=== PATIENT | male | born 1930 | race Caucasian/White ===

== ENCOUNTER 2018-01-11 19:30 | Inpatient (IN) | payer MEDICARE ==
[~2018-01-11] VITALS: Ht 172.7 cm; Wt 72.6 kg
--- NOTE | 2018-01-11 19:42 | Emergency Room Report ---
History of Present Illness General Chief Complaint: Generalized Weakness Source: Family Member Present Illness HPI 87-year-old male with a history of CAD status post CABG, PPM placement 20 years ago, presents with very short lived MS, chest pressure today, with associated generalized weakness x 1 week and a fall 6 days ago. He reports he stumbled on a step and hit his head but didn't think much of it so never came to the ER then. His chest pain today resolved without intervention, he denies having SOB , F/C, cough, syncope, LOC, N/V, diarrhea, or any other complaints. Allergies: Coded Allergies: No Known Allergies (Unverified , 01/11/18) Patient History Past Medical History: see triage record Reviewed Nursing Documentation: PMH: Agreed; PSxH: Agreed Nursing Documentation-PMH Past Medical History: No History, Except For Hx Cardiac Problems: Yes - Bypass Surgery Hx Pacemaker: Yes Review of Systems All Other Systems: negative except mentioned in HPI Physical Exam Vital Signs Date Time Temp Pulse Resp B/P (MAP) Pulse Ox O2 Delivery O2 Flow Rate FiO2 01/11/18 19:21 98.0 60 18 161/80 97 Room Air 98.1 Sp02 EP Interpretation: reviewed, normal General Appearance: no apparent distress, alert, non-toxic Head: normocephalic, other - small contusion to L of vertex Eyes: bilateral eye normal inspection, bilateral eye PERRL, bilateral eye EOMI ENT: normal ENT inspection, hearing grossly normal, normal pharynx, no angioedema, normal voice, moist mucus membranes Neck: normal inspection, full range of motion, supple, no bony tend, supple/ symm/no masses Respiratory: chest non-tender, lungs clear, normal breath sounds, chest symmetrical, palpation of chest normal Cardiovascular #1: normal peripheral pulses, regular rate, rhythm, other - PPM site C/D/I, edema - 2+ B/L LE edema Cardiovascular #2: 2+ radial (R), 2+ radial (L) Gastrointestinal: normal inspection, non tender, soft, no mass, no guarding, no rebound Rectal: deferred Genitourinary: normal inspection, no CVA tenderness Musculoskeletal: back normal, gait/station normal, normal range of motion, non- tender, no calf tenderness Neurologic: alert, responsive, complaints coordinator III-XII nml as tested, motor strength/tone normal, sensory intact, speech normal Psychiatric: judgement/insight normal, memory normal, mood/affect normal, no suicidal/homicidal ideation Skin: normal color, no rash, warm/dry, normal turgor Lymphatic: no adenopathy Medical Decision Making Diagnostic Impression: Primary Impression: Chest pain Additional Impressions: Pneumonia CHF (congestive heart failure) Intracranial bleed ER Course Patient with short-lived chest pain, but also had a mechanical fall a week ago. Does have B/L LE edema, suspect CHF as part of pathology. Patient's BNP elevated, CXR with R>L infiltrate, small L effusion, c/w pneumonia vs. chf. Patient given lasix and levaquin, admitted. EKG Diagnostic Results EKG Time: 19:35 EP Interpretation: paced rhythm, LBBB morphology Rate: normal Rhythm: NSR ST Segments: no acute changes ASA given to the pt in ED: Yes Rhythm Strip Diag. Results Rhythm Strip Time: 19:43 EP Interpretation: yes Rate: 60 Rhythm: no PVC's, no ectopy, other - paced rhythm Chest X-Ray Diagnostic Results Chest X-Ray Diagnostic Results : Chest X-Ray Ordered: Yes # of Views/Limited/Complete: 1 View Indication: Chest Pain EP Interpretation: Yes Interpretation: no effusion, no pneumothorax, no acute cardiopulmonary disease, other - +RLL and RML consolidation Impression: Other - RLL PNA Electronically Signed by: Gael Abraham MD CT/MRI/US Diagnostic Results CT/MRI/US Diagnostic Results #1: Imaging Test Ordered: ct head noncon Impression possible tiny L putamen hemorrhage 0.3cm, no mass effect CT/MRI/US Diagnostic Results #2: Imaging Test Ordered: ct c-spine noncon Impression nad Last Vital Signs Date Time Temp Pulse Resp B/P (MAP) Pulse Ox O2 Delivery O2 Flow Rate FiO2 01/11/18 19:21 98.0 60 18 161/80 97 Room Air 98.1 Disposition: ADMITTED INPATIENT Condition: Stable Signed Out To: Dr. Hernandez to admit to GAEL Rodriguez M.D Jan 11, 2018 19:42
[2018-01-11 20:07] LABS: ANION GAP 9 mmol/L (5-15); BLOOD UREA NITROGEN 41 mg/dL (7-18); CALCIUM 10.2 MG/DL (8.5-10.1); CARBON DIOXIDE 24 MMOL/L (21-32); CHLORIDE 106 MMOL/L (98-107); CREATININE 2.3 MG/DL (0.55-1.30); POTASSIUM 4.5 MMOL/L (3.5-5.1); SODIUM 139 MMOL/L (136-145)
[2018-01-11 20:11] LABS: BASOPHILS % (AUTO) 1.3 % (0.0-2.0); EOSINOPHILS % (AUTO) 3.5 % (0.0-3.0); HEMATOCRIT 32.6 % (42.0-52.0); HEMOGLOBIN 11.2 G/DL (14.2-18.0); LYMPHOCYTES % (AUTO) 15.6 % (20.0-45.0); MEAN CORPUSCULAR VOLUME 92 FL (80-99); MONOCYTES % (AUTO) 7.7 % (1.0-10.0); PLATELET COUNT 129 K/UL (150-450); RED BLOOD COUNT 3.53 M/UL (4.70-6.10); RED CELL DISTRIBUTION WIDTH 12.9 % (11.6-14.8); WHITE BLOOD COUNT 4.7 K/UL (4.8-10.8)
[2018-01-11] MEDS ORDERED: NIACIN500 M3 PO (20:18)
[2018-01-11] MEDS ORDERED: FISH OIL CAP1000 MG ORAL (20:18)
[2018-01-11] MEDS ORDERED: TRICON CAPSULE1 EACH PO (20:18)
[2018-01-11] MEDS ORDERED: ADALAT20 MG ORAL (20:18)
[2018-01-11] MEDS ORDERED: ULORIC80 MG ORAL (20:18)
[2018-01-11] MEDS ORDERED: OMEPRAZOLE40 M1 ORAL (20:18)
[2018-01-11] MEDS ORDERED: ASPIRIN81 MG ORAL (20:18)
[2018-01-11] MEDS ORDERED: CARVEDILOL25 MG ORAL (20:18)
[2018-01-11] MEDS ORDERED: ACETAMINOPHEN325 M1 ORAL (20:18)
[2018-01-11] MEDS ORDERED: TAMSULOSIN HCL0.4 MG ORAL (20:18)
[2018-01-11 20:21] LABS: ALANINE AMINOTRANSFERASE 19 U/L (12-78); ALBUMIN 3.4 G/DL (3.4-5.0); ALKALINE PHOSPHATASE 31 U/L (46-116); ASPARTATE AMINO TRANSFERASE 15 U/L (15-37); BILIRUBIN,TOTAL 0.4 MG/DL (0.2-1.0); CKMB 1.6 NG/ML (0.0-3.6); CREATINE KINASE 42 U/L (26-308)
[2018-01-11 20:22] LABS: INR 1.4 (0.9-1.1)
[2018-01-11] MEDS ORDERED: Aspirin Baby 81mg ORAL SCH (21:15)
[2018-01-11] MEDS ORDERED: Aspirin Baby 81mg ONE (21:16)
--- NOTE | 2018-01-11 21:17 | Diagnostic Imaging Report ---
EXAM: CT Head Without Intravenous Contrast CLINICAL HISTORY: FALL TECHNIQUE: Axial computed tomography images of the head/brain without intravenous contrast. CTDI is 70 mGy and DLP is 1684mGy-cm. One or more of the following dose reduction techniques were used: automated exposure control, adjustment of the mA and/or kV according to patient size, use of iterative reconstruction technique. COMPARISON: No relevant prior studies available. FINDINGS: Brain: Focal 0.3 cm left lateral putamen mild hyperdensity, image 15, is indeterminate and could represent tiny punctate hemorrhage in the proper clinical setting. Likely age-appropriate cerebral parenchymal volume loss. Scattered minimal white matter nonspecific hypodensities likely representing chronic microvascular ischemia. Ventricles: Unremarkable. No ventriculomegaly. Bones/joints: Unremarkable. No acute fracture. Soft tissues: Unremarkable. Vasculature: Cerebrovascular atherosclerosis. Sinuses: Unremarkable as visualized. No acute sinusitis. Mastoid air cells: Unremarkable as visualized. No mastoid effusion. IMPRESSION: 1. Possible tiny left putamen hemorrhage, no mass effect. Recommend attention on follow-up. 2. Otherwise no acute intracranial pathology. 3. Likely age-appropriate chronic senescent changes.
--- NOTE | 2018-01-11 21:20 | Diagnostic Imaging Report ---
EXAM: XR Chest, 1 View CLINICAL HISTORY: PAIN TECHNIQUE: Frontal view of the chest. COMPARISON: No relevant prior studies available. FINDINGS: Lungs: See below. Pleural space: Bibasilar pleural effusions, small, with passive atelectasis or consolidation. No pneumothorax. Heart: Retrocardiac opacity. Mediastinum: Unremarkable. Bones/joints: Sternotomy. Left chest pacer. Mediastinal operative clips. IMPRESSION: Bilateral pleural effusions with bibasilar atelectasis, correlate to exclude consolidation.
--- NOTE | 2018-01-11 21:32 | Diagnostic Imaging Report ---
EXAM: CT Cervical Spine Without Intravenous Contrast CLINICAL HISTORY: FALL TECHNIQUE: Axial computed tomography images of the cervical spine without intravenous contrast. CTDI is 70.8 mGy and DLP is 1684 mGy-cm. One or more of the following dose reduction techniques were used: automated exposure control, adjustment of the mA and/or kV according to patient size, use of iterative reconstruction technique. COMPARISON: No relevant prior studies available. FINDINGS: Vertebrae: Unremarkable. No acute fracture. Discs/spinal canal/neural foramina: Multilevel degenerative spine findings. Discogenic degeneration, facet arthropathy. No high-grade canal or foraminal osseous stenosis. Soft tissues: Unremarkable. Vasculature: Carotid at least moderate ASVD in the region of the bifurcation. Lung apices: Unremarkable as visualized. IMPRESSION: No acute abnormality.
[2018-01-11 21:47] VITALS: BP 163/70
[2018-01-11] MEDS: Heparin 5000 units/ml inj SUBQ SCH (22:11)
[2018-01-11] MEDS ORDERED: LORazepam Inj 2mg/ml 1ml IV PRN (22:15)
[2018-01-11] MEDS ORDERED: Morphine Sulfate 4mg/ml Inj IVP PRN (22:15)
[2018-01-11] MEDS ORDERED: Nitroglycerin Subl 0.4mg tab SL PRN (22:15)
[2018-01-11] MEDS ORDERED: Albuterol/Ipratropium 3ml neb HHN PRN (22:15)
[2018-01-11] MEDS ORDERED: Miralax 17gm pkt ORAL PRN (22:15)
[2018-01-11] MEDS ORDERED: Promethazine/Codeine 5ml UD ORAL PRN (22:15)
[2018-01-11] MEDS ORDERED: Mylanta II UD 30ml ORAL PRN (22:15)
[2018-01-11 22:29] VITALS: BP 150/77
[2018-01-11] MEDS: Tamsulosin 0.4mg cap ORAL SCH (23:33)
[2018-01-11] MEDS: Carvedilol 25mg Tab ORAL SCH (23:34)
[2018-01-11] MEDS: D5 1/2NS 1,000 ML IV SCH (23:36)
[2018-01-12] VITALS: BP 161/87
[2018-01-12 01:14] LABS: APPEARANCE,URINE CLEAR; BILIRUBIN, URINE NEGATIVE (NEGATIVE); COLOR,URINE PALE YELLOW; GLUCOSE, URINE (UA) NEGATIVE (NEGATIVE); KETONES,URINE NEGATIVE (NEGATIVE); LEUKOCYTE ESTERASE ,URINE NEGATIVE (NEGATIVE); NITRITE,URINE NEGATIVE (NEGATIVE); PH,URINE 7 (4.5-8.0); PROTEIN,URINE NEGATIVE (NEGATIVE); UROBILINOGEN,URINE NORMAL MG/DL (0.0-1.0)
[2018-01-12 04:00] VITALS: BP 140/56
[2018-01-12 08:00] VITALS: BP 154/71
--- NOTE | 2018-01-12 08:09 | Consultation ---
History of Present Illness General Date patient seen: Jan 12, 2018 Time patient seen: 07:45 Chief Complaint: Generalized Weakness Referring physician: dr Hernandez Reason for Consultation: inpatient management Present Illness HPI 87-year-old male with PMH of of CAD, s/p CABG, PPM placement 20 years ago, presented with very short lived chest pressure today with associated generalized weakness x 1 week and mechanical fall 6 days ago. He reported stumbling on a step and hitting his head but denied loss of consciousness or blackout. Chest pain resolved without intervention, He denied fever, chills, cough, syncope, LOC, N/V, diarrhea, leg swelling He does reported this am occasional SOB and generalized weakness patient was taking Lasix in the past but stopped as per script editor Upon evaluation in ED VSS except elevated blood pressure CT head revealed possible tiny left putamen hemorrhage, no mass effect. Recommend attention on follow-up. Otherwise no acute intracranial pathology. troponin negative pro BNP 3689 INR-1,4 ( not on a/coagulation) ECG with paced rhythm CXR with bilateral pleural effusions with bibasilar atelectasis, possible consolidation. CT C spine - no acute fracture mild anemia evidence of renal insufficiency BUN 41 and creatinine 2.3 Patient reported follow up with outpt cardio q 3 months Last pacemaker interrogation 3 months ago Have next appointment this coming Sunday Allergies: Coded Allergies: No Known Allergies (Unverified , 01/11/18) Medication History Scheduled Acetaminophen* (Acetaminophen 325MG Tablet*), Unknown Dose ORAL EVERY 12 HOURS, (Reported) Aspirin* (Aspirin*), 81 MG ORAL DAILY, (Reported) Carvedilol* (Carvedilol*), 25 MG ORAL EVERY 12 HOURS, (Reported) Febuxostat (Uloric), 80 MG ORAL DAILY, (Reported) Fish Oil (Fish Oil 1,000 mg Capsule), Unknown Dose ORAL DAILY, (Reported) Niacin (Niacin), 500 MG PO DAILY, (Reported) Nifedipine (Nifedipine*), 60 MG ORAL DAILY, (Reported) Omeprazole (Omeprazole), 40 MG ORAL DAILY, (Reported) Tamsulosin Hcl (Tamsulosin Hcl*), 0.4 MG ORAL BID, (Reported) Miscellaneous Medications Fe Fumarate/Vit C/B12-If/Fa (Tricon Capsule), 1 EACH PO, (Reported) Patient History History Provided By: Patient, Family Member Healthcare decision maker Resuscitation status Full Code Advanced Directive on File Past Medical/Surgical History Past Medical/Surgical History: (1) Pacemaker (2) CAD (coronary artery disease) of artery bypass graft Review of Systems Constitutional: Reports: weakness Eye: Reports: no symptoms ENT: Reports: no symptoms Respiratory: Reports: see HPI Cardiovascular: Reports: see HPI Gastrointestinal: Reports: no symptoms Musculoskeletal: Reports: muscle stiffness Skin: Reports: no symptoms Psychiatric: Reports: no symptoms Neurological: Reports: see HPI Endocrine: Reports: no symptoms Hematologic/Lymphatic: Reports: no symptoms Physical Exam General Appearance: no apparent distress, alert - responsive Lines, tubes and drains: peripheral HEENT: normocephalic, atraumatic, anicteric, mucous membranes moist Neck: supple Respiratory/Chest: lungs clear, no respiratory distress, no accessory muscle use Cardiovascular/Chest: normal peripheral pulses, normal rate, no JVD, pacemaker/ AICD - Left upper chest pacemaker , other - trace edema BLE Abdomen: normal bowel sounds, non tender, soft Extremities: normal range of motion, non-tender, no calf tenderness, normal capillary refill Skin Exam: warm/dry Neurologic: alert, responsive Musculoskeletal: normal muscle bulk Last 24 Hour Vital Signs Date Time Temp Pulse Resp B/P (MAP) Pulse Ox O2 Delivery O2 Flow Rate FiO2 01/12/18 04:00 97.3 60 21 140/56 95 Room Air 97.3 01/12/18 00:00 97.0 83 22 161/87 96 Room Air 97.0 01/12/18 00:00 64 01/11/18 23:34 64 156/78 01/11/18 22:30 98.1 72 18 150/77 97 Room Air 98.1 01/11/18 22:29 98.1 72 18 150/77 97 Room Air 98.1 01/11/18 21:47 98.1 73 18 163/70 97 Room Air 98.1 01/11/18 19:21 98.0 60 18 161/80 97 Room Air 98.1 Intake and Output 01/11/18 01/12/18 19:00 07:00 Output Total 700 ml Balance -700 ml Output Urine Total 700 ml # Voids 3 Laboratory Tests Test 01/11/18 19:30 01/11/18 23:30 White Blood Count 4.7 K/UL (4.8-10.8) L Red Blood Count 3.53 M/UL (4.70-6.10) L Hemoglobin 11.2 G/DL (14.2-18.0) L Hematocrit 32.6 % (42.0-52.0) L Mean Corpuscular Volume 92 FL (80-99) Mean Corpuscular Hemoglobin 31.8 PG (27.0-31.0) H Mean Corpuscular Hemoglobin Concent 34.5 G/DL (32.0-36.0) Red Cell Distribution Width 12.9 % (11.6-14.8) Platelet Count 129 K/UL (150-450) L Mean Platelet Volume 5.9 FL (6.5-10.1) L Neutrophils (%) (Auto) 72.0 % (45.0-75.0) Lymphocytes (%) (Auto) 15.6 % (20.0-45.0) L Monocytes (%) (Auto) 7.7 % (1.0-10.0) Eosinophils (%) (Auto) 3.5 % (0.0-3.0) H Basophils (%) (Auto) 1.3 % (0.0-2.0) Prothrombin Time 14.7 SEC (9.30-11.50) H Prothromb Time International Ratio 1.4 (0.9-1.1) H Activated Partial Thromboplast Time 25 SEC (23-33) Sodium Level 139 MMOL/L (136-145) Potassium Level 4.5 MMOL/L (3.5-5.1) Chloride Level 106 MMOL/L (98-107) Carbon Dioxide Level 24 MMOL/L (21-32) Anion Gap 9 mmol/L (5-15) Blood Urea Nitrogen 41 mg/dL (7-18) H Creatinine 2.3 MG/DL (0.55-1.30) H Estimat Glomerular Filtration Rate mL/min (>60) Glucose Level 116 MG/DL (74-106) H Calcium Level 10.2 MG/DL (8.5-10.1) H Total Bilirubin 0.4 MG/DL (0.2-1.0) Aspartate Amino Transf (AST/SGOT) 15 U/L (15-37) Alanine Aminotransferase (ALT/SGPT) 19 U/L (12-78) Alkaline Phosphatase 31 U/L (46-116) L Total Creatine Kinase 42 U/L (26-308) Creatine Kinase MB 1.6 NG/ML (0.0-3.6) Creatine Kinase MB Relative Index 3.8 Troponin I 0.015 ng/mL (0.000-0.056) Pro-B-Type Natriuretic Peptide 99833 pg/mL (0-125) H Total Protein 6.9 G/DL (6.4-8.2) Albumin 3.4 G/DL (3.4-5.0) Globulin 3.5 g/dL Albumin/Globulin Ratio 1.0 (1.0-2.7) Urine Color Pale yellow Urine Appearance Clear Urine pH 7 (4.5-8.0) Urine Specific Bryant 1.005 (1.005-1.035) Urine Protein Negative (NEGATIVE) Urine Glucose (UA) Negative (NEGATIVE) Urine Ketones Negative (NEGATIVE) Urine Occult Blood Negative (NEGATIVE) Urine Nitrite Negative (NEGATIVE) Urine Bilirubin Negative (NEGATIVE) Urine Urobilinogen Normal MG/DL (0.0-1.0) Urine Leukocyte Esterase Negative (NEGATIVE) Urine RBC 0-2 /HPF (0 - 0) H Urine WBC 0-2 /HPF (0 - 0) Urine Squamous Epithelial Cells Occasional /LPF Urine Bacteria Occasional /HPF (NONE) Urine Eosinophils None seen Urine Random Sodium 124 mmol/L (20-110) H Urine Potassium Timed 10 mmol/L (12-62) L Height (Feet): 5 Height (Inches): 8.00 Weight (Pounds): 160 Medications Current Medications Medications (Trade) Dose Ordered Sig/Eva Route PRN Reason Start Time Stop Time Status Last Admin Dose Admin Acetaminophen (Tylenol) 650 mg Q4H PRN ORAL fever 01/11/18 22:15 02/10/18 22:14 Al Hydroxide/Mg Hydroxide (Mylanta II) 30 ml Q6H PRN ORAL dyspepsia 01/11/18 22:15 02/10/18 22:14 Albuterol/ Ipratropium (Albuterol/ Ipratropium) 3 ml EVERY 4 HOURS PRN HHN Shortness of Breath 01/11/18 22:15 01/16/18 22:14 Carvedilol (Coreg) 25 mg EVERY 12 HOURS ORAL 01/11/18 22:05 02/10/18 22:04 01/11/18 23:34 Clonidine HCl (Catapres Tab) 0.1 mg Q4H PRN ORAL For High Blood Pressure 01/11/18 22:15 02/10/18 22:14 Dextrose (Dextrose 50%) STAT PRN IV Hypoglycemia 01/11/18 22:15 02/10/18 22:14 Dextrose/Sodium Chloride 1,000 ml @ 50 mls/hr Q20H IV 01/11/18 22:01 02/10/18 22:00 01/11/18 23:36 Heparin Sodium (Porcine) (Heparin 5000 units/ml) 5,000 units EVERY 12 HOURS SUBQ 01/11/18 22:11 02/10/18 22:10 Lorazepam (Ativan 2mg/ml 1ml) 0.5 mg Q4H PRN IV For Anxiety 01/11/18 22:15 01/18/18 22:14 Morphine Sulfate (Morphine Sulfate) 1 mg Q4H PRN IVP For Pain 7-01/11/18 22:15 01/18/18 22:14 Nitroglycerin (Ntg) 0.4 mg Q5M X 3 DOSES PRN SL Prn Chest Pain 01/11/18 22:15 02/10/18 22:14 Ondansetron HCl (Zofran) 4 mg Q6H PRN IVP Nausea & Vomiting 01/11/18 22:15 02/10/18 22:14 Polyethylene Glycol (Miralax) 17 gm HSPRN PRN ORAL Constipation 01/11/18 22:15 02/10/18 22:14 Promethazine HCl/ Codeine (Phenergan with Codeine) 5 ml Q4H PRN ORAL For Cough 01/11/18 22:15 02/10/18 22:14 Tamsulosin HCl (Flomax) 0.4 mg BID ORAL 01/11/18 22:05 02/10/18 22:04 01/11/18 23:33 Temazepam (Restoril) 15 mg HSPRN PRN ORAL Insomnia 01/11/18 22:15 01/18/18 22:14 Assessment/Plan Assessment/Plan ASSESSMENT Status post mechanical fall Chest pain, rule out acute coronary syndrome Congestive heart failure with elevated pro BNP; probable exacerbation Possible pneumonia Coagulopathy Acute kidney injury versus chronic renal insufficiency Possible dehydration Possible tiny intracranial hemorrhage Pacemaker PLAN OF CARE telemetry floor Serial troponin, EKG to rule out acute SD ECHO cardiology eval pacemaker interrogation- per cardio discretion ; last done 3 months ago ( follows with cardio as outpt at [facility]) hold aspirin and fish oil for now, continue BB, check lipid panel, TSH Sputum culture , empiric antibiotic for now, low suspicion for PNA though, likely CHF repeat CXR in am O2 HHN prn Venous Duplex BLE hold Lasix for now until ECHO results neuro eval repeat CT head on Sunday neuro checks ammonia level carotid Duplex orthostatic VS x 24 hrs gentle IV fluids monitor renal parameters lytes, correct ytes as needed , avoid nephrotoxic Renal ultrasound trend INR fall precautions PT/OT /ST supportive care case discussed and evaluated by supervising physician Priscilla Montoya NP Jan 12, 2018 08:09
[2018-01-12] MEDS: Heparin 5000 units/ml inj SUBQ SCH ×2 (09:00→21:00)
[2018-01-12 09:22] LABS: EOSINOPHILS % (AUTO) 5.2 % (0.0-3.0); HEMATOCRIT 35.8 % (42.0-52.0); HEMOGLOBIN 12.2 G/DL (14.2-18.0); LYMPHOCYTES % (AUTO) 10.9 % (20.0-45.0); MEAN CORPUSCULAR VOLUME 93 FL (80-99); MONOCYTES % (AUTO) 6.8 % (1.0-10.0); NEUTROPHILS % (AUTO) 76.1 % (45.0-75.0); PLATELET COUNT 142 K/UL (150-450); RED BLOOD COUNT 3.84 M/UL (4.70-6.10); RED CELL DISTRIBUTION WIDTH 12.8 % (11.6-14.8); WHITE BLOOD COUNT 4.9 K/UL (4.8-10.8)
[2018-01-12] MEDS: Tamsulosin 0.4mg cap ORAL SCH ×2 (09:27→18:50)
[2018-01-12] MEDS: Carvedilol 25mg Tab ORAL SCH ×2 (09:27→21:03)
[2018-01-12 09:34] LABS: AMMONIA 19 umol/L (11-32)
[2018-01-12 09:36] LABS: ANION GAP 10 mmol/L (5-15); BLOOD UREA NITROGEN 37 mg/dL (7-18); CALCIUM 10.2 MG/DL (8.5-10.1); CARBON DIOXIDE 25 MMOL/L (21-32); CHLORIDE 103 MMOL/L (98-107); CREATININE 2.3 MG/DL (0.55-1.30); SODIUM 138 MMOL/L (136-145)
[2018-01-12 09:47] LABS: ALANINE AMINOTRANSFERASE 18 U/L (12-78); ALBUMIN 3.4 G/DL (3.4-5.0); ALBUMIN/GLOBULIN RATIO 0.9 (1.0-2.7); ALKALINE PHOSPHATASE 33 U/L (46-116); ASPARTATE AMINO TRANSFERASE 15 U/L (15-37); BILIRUBIN,TOTAL 0.5 MG/DL (0.2-1.0); CHOLESTEROL 134 MG/DL (< 200); HDL CHOLESTEROL 49 MG/DL (40-60); TRIGLYCERIDES 143 MG/DL (30-150)
[2018-01-12 09:51] LABS: INR 1.5 (0.9-1.1)
--- NOTE | 2018-01-12 11:18 | Diagnostic Imaging Report ---
INDICATION: Shortness of breath COMPARISON: Chest x-ray dated 01/11/18 FINDINGS: Single frontal view demonstrates enlarged cardiac size. Left chest wall pacemaker. Status post median sternotomy with surgical clips. Improved aeration in the right lower lung zone. Atherosclerotic vascular disease. The lungs are otherwise clear. No pleural effusions. The visualized osseous structures are within normal limits. IMPRESSION: Improved aeration of the right lower lung zone. Status post median sternotomy with surgical clips. Enlarged cardiac size.
[2018-01-12 12:00] VITALS: BP 130/68
--- NOTE | 2018-01-12 12:11 | Consultation ---
Consult Note Consult Note asked to eval for elevated Cr 87-year-old male with a history of CAD status post CABG, PPM placement 20 years ago, presents with very short lived MS, chest pressure today, with associated generalized weakness x 1 week and a fall 6 days ago. He reports he stumbled on a step and hit his head but didn't think much of it so never came to the ER then. His chest pain today resolved without intervention, he denies having SOB , F/C, cough, syncope, LOC, N/V, diarrhea, or any other complaints. Allergies: No Known Allergies (Unverified , 01/11/18) Patient History Hx Cardiac Problems: Yes - Bypass Surgery Hx Pacemaker: Yes interviewed examined data reviewed . Assessment/Plan Renal failure, likely chronis Status post mechanical fall Chest pain, rule out acute coronary syndrome Congestive heart failure Possible pneumonia Pacemaker mild Anemia Plan: hold asa and fish oil due to suspected bleed in CT Gastric support Ass Norvasc for BP 2D Echo Kidney MANUEL Flomax slow hydrate JAISON BECERRIL Jan 12, 2018 12:11
[2018-01-12] MEDS ORDERED: Aspirin Baby 81mg ORAL SCH (12:30)
--- NOTE | 2018-01-12 13:00 | History and Physical Report ---
DATE OF ADMISSION: 01/11/2018 TIME: 9 a.m. CONSULTANTS: 1. Aaron Archer M.D. 2. Brooks Marques M.D. 3. Chino Junior M.D. 4. Jonathan Hagen M.D. CHIEF COMPLAINT: Short of breath, weakness, slight chest pain. BRIEF HISTORY: The patient is an 87-year-old male, who lives at home, presents with a history of slight short of breath, slight chest pain, sharp, substernal, intermittent, quickly. The patient's was very alarmed, brought him to [facility], diagnosed with the above, pneumonia, CHF, chest pain, shortness of breath, and admitted to telemetry for further care. Currently, sitting on bed. No complaint. Much slight chest pain. Slight short of breath. No nausea, vomiting, or diarrhea. PAST MEDICAL HISTORY: CHF, CAD, renal failure, anemia, and hypertension. PAST SURGICAL HISTORY: Quadruple bypass stent and valve replacement. MEDICATIONS: Include levofloxacin, albuterol, Tylenol, morphine, Zofran, lorazepam, temazepam, nitroglycerin, clonidine, and carvedilol. ALLERGIES: Denies. SOCIAL HISTORY: No smoking. Occasional alcohol. No intravenous drug abuse. FAMILY HISTORY: Noncontributory. PHYSICAL EXAMINATION: GENERAL: Calm, sitting on bed, oriented x3, slight short of breath. VITAL SIGNS: Temperature is 97, pulse 60, respirations 21, and blood pressure 140/56. CARDIOVASCULAR: No murmur. LUNGS: Poor air exchange. ABDOMEN: Bowel sounds positive. Nontender. Nondistended. EXTREMITIES: No cyanosis or clubbing. 1+ edema. NEUROLOGIC: The patient move all extremities slightly weak. LABORATORY DATA: Laboratories show white count 4.7, hemoglobin and hematocrit 11/32, and platelets 129. BMP shows BUN and creatinine 41/2.3. Glucose 116. Troponin 0.015. BNP is 13,689. INR is 1.4. PTT 25. Urinalysis is negative. ASSESSMENT: 1. Pneumonia. 2. Sepsis. 3. Shortness of breath. 4. Chest pain. 5. CHF. 6. Anemia. 7. Edema. 8. CAD. 9. Renal failure. 10. Hypertension. PLAN: 1. O2 and pulmonary treatment. 2. Antibiotics per Infectious Disease. 3. Blood pressure and blood sugar control. 4. Nephrology followup. 5. Dietary followup. 6. OT, PT, CBC, BMP in the morning. Lopez Hernandez D.O. DR: MARIA DE JESUS JOB#: [id number] CC:
[2018-01-12 16:00] VITALS: BP 127/54
--- NOTE | 2018-01-12 17:18 | Consultation ---
Consult Note Consult Note # [id number] Chino Junior MD Jan 12, 2018 17:18
[2018-01-12] MEDS ORDERED: D5 1/2NS 1000ml IV ONE (17:29)
--- NOTE | 2018-01-12 18:15 | Consultation ---
DATE OF CONSULTATION: 01/12/2018 INFECTIOUS DISEASE CONSULTATION CONSULTING PHYSICIAN: Chino Junior M.D. REQUESTING PHYSICIAN: Lopez Hernandez D.O. REASON FOR CONSULTATION: Evaluation of the patient for possible pneumonia. HISTORY OF PRESENT ILLNESS: The patient is an 87-year-old male with multiple medical problems who was admitted to this medical center with the chief complaint of weakness x3 days. The patient also felt short of breath on the day of admission and was brought to the hospital and there was concern for possible pneumonia. The patient denies ever having cough. Infectious Disease consultation has been requested for further evaluation of the patient and antibiotic management. PAST MEDICAL HISTORY: 1. CAD status by bypass surgery over 20 years ago. 2. Status post pacemaker placement last year. 3. History of CHF. 4. Anemia. 5. Hypertension. MEDICATIONS: The patient is on Levaquin. ALLERGIES: No known drug allergies. SOCIAL HISTORY: Negative for alcohol, drug abuse, or smoking. FAMILY HISTORY: Not contributing. REVIEW OF SYSTEMS: A 10-point review was done and except what was mentioned above has been negative. PHYSICAL EXAMINATION: VITAL SIGNS: Temperature 97.6, pulse 86, respiratory rate 18, and blood pressure 127/54. HEENT: No pale conjunctivae. No icterus. NECK: No lymphadenopathy. CHEST: Clear. HEART: S1-S2. ABDOMEN: Soft and nontender. EXTREMITIES: No cyanosis. LABORATORY AND DIAGNOSTIC DATA: BUN and creatinine 2.3. ALT, AST, alkaline phosphatase unremarkable. LABORATORY AND DIAGNOSTIC DATA: White blood cells 4.9, hemoglobin 12, platelets 142. UA unremarkable. Chest x-ray, at the time of admission, bilateral pleural effusion, bibasilar atelectasis. Chest x-ray today on 01/12/2018 showed improved aeration on the right base, status post median sternotomy. ASSESSMENT: The patient is a 87-year-old male with multiple medical problems who was admitted with: 1. Shortness of breath, no cough, less likely pneumonia. 2. Most likely congestive heart failure due to high BNP that has improved rapidly over night with improvement of chest x-ray. PLAN: 1. Discontinue antibiotic treatment (Levaquin). 2. Monitor chest x-ray. 3. Monitor CBC and BMP. 4. Monitor cultures. 5. Based on the patient's clinical course and labs, we will do further recommendation. Chino Junior M.D. DR: Vince JOB#: [id number] CC:
[2018-01-12] MEDS: D5 1/2NS 1,000 ML IV SCH (18:50)
--- NOTE | 2018-01-12 19:16 | Cardiac Electrophysiology PN ---
Subjective Subjective [id number] Objective Last 24 Hour Vital Signs Date Time Temp Pulse Resp B/P (MAP) Pulse Ox O2 Delivery O2 Flow Rate FiO2 01/12/18 16:00 97.7 69 18 127/54 96 Room Air 97.7 01/12/18 16:00 69 60 83 01/12/18 16:00 68 01/12/18 12:46 63 130/68 01/12/18 12:00 63 78 101 01/12/18 12:00 97.2 63 18 130/68 95 Room Air 97.2 01/12/18 12:00 60 01/12/18 09:27 68 154/71 01/12/18 08:00 97.6 68 18 154/71 95 Room Air 97.6 01/12/18 08:00 66 01/12/18 04:00 97.3 60 21 140/56 95 Room Air 97.3 01/12/18 00:00 97.0 83 22 161/87 96 Room Air 97.0 01/12/18 00:00 64 01/11/18 23:34 64 156/78 01/11/18 22:30 98.1 72 18 150/77 97 Room Air 98.1 01/11/18 22:29 98.1 72 18 150/77 97 Room Air 98.1 01/11/18 21:47 98.1 73 18 163/70 97 Room Air 98.1 01/11/18 19:21 98.0 60 18 161/80 97 Room Air 98.1 Intake and Output 01/11/18 01/12/18 19:00 07:00 Output Total 700 ml Balance -700 ml Output Urine Total 700 ml # Voids 3 Laboratory Tests Test 01/11/18 19:30 01/11/18 23:30 01/12/18 09:00 01/12/18 16:10 White Blood Count 4.7 K/UL (4.8-10.8) L 4.9 K/UL (4.8-10.8) Red Blood Count 3.53 M/UL (4.70-6.10) L 3.84 M/UL (4.70-6.10) L Hemoglobin 11.2 G/DL (14.2-18.0) L 12.2 G/DL (14.2-18.0) L Hematocrit 32.6 % (42.0-52.0) L 35.8 % (42.0-52.0) L Mean Corpuscular Volume 92 FL (80-99) 93 FL (80-99) Mean Corpuscular Hemoglobin 31.8 PG (27.0-31.0) H 31.8 PG (27.0-31.0) H Mean Corpuscular Hemoglobin Concent 34.5 G/DL (32.0-36.0) 34.2 G/DL (32.0-36.0) Red Cell Distribution Width 12.9 % (11.6-14.8) 12.8 % (11.6-14.8) Platelet Count 129 K/UL (150-450) L 142 K/UL (150-450) L Mean Platelet Volume 5.9 FL (6.5-10.1) L 6.0 FL (6.5-10.1) L Neutrophils (%) (Auto) 72.0 % (45.0-75.0) 76.1 % (45.0-75.0) H Lymphocytes (%) (Auto) 15.6 % (20.0-45.0) L 10.9 % (20.0-45.0) L Monocytes (%) (Auto) 7.7 % (1.0-10.0) 6.8 % (1.0-10.0) Eosinophils (%) (Auto) 3.5 % (0.0-3.0) H 5.2 % (0.0-3.0) H Basophils (%) (Auto) 1.3 % (0.0-2.0) 1.0 % (0.0-2.0) Prothrombin Time 14.7 SEC (9.30-11.50) H 15.4 SEC (9.30-11.50) H Prothromb Time International Ratio 1.4 (0.9-1.1) H 1.5 (0.9-1.1) H Activated Partial Thromboplast Time 25 SEC (23-33) 26 SEC (23-33) Sodium Level 139 MMOL/L (136-145) 138 MMOL/L (136-145) Potassium Level 4.5 MMOL/L (3.5-5.1) 4.0 MMOL/L (3.5-5.1) Chloride Level 106 MMOL/L (98-107) 103 MMOL/L (98-107) Carbon Dioxide Level 24 MMOL/L (21-32) 25 MMOL/L (21-32) Anion Gap 9 mmol/L (5-15) 10 mmol/L (5-15) Blood Urea Nitrogen 41 mg/dL (7-18) H 37 mg/dL (7-18) H Creatinine 2.3 MG/DL (0.55-1.30) H 2.3 MG/DL (0.55-1.30) H Estimat Glomerular Filtration Rate mL/min (>60) mL/min (>60) Glucose Level 116 MG/DL (74-106) H 110 MG/DL (74-106) H Calcium Level 10.2 MG/DL (8.5-10.1) H 10.2 MG/DL (8.5-10.1) H Total Bilirubin 0.4 MG/DL (0.2-1.0) 0.5 MG/DL (0.2-1.0) Aspartate Amino Transf (AST/SGOT) 15 U/L (15-37) 15 U/L (15-37) Alanine Aminotransferase (ALT/SGPT) 19 U/L (12-78) 18 U/L (12-78) Alkaline Phosphatase 31 U/L (46-116) L 33 U/L (46-116) L Total Creatine Kinase 42 U/L (26-308) Creatine Kinase MB 1.6 NG/ML (0.0-3.6) Creatine Kinase MB Relative Index 3.8 Troponin I 0.015 ng/mL (0.000-0.056) 0.018 ng/mL (0.000-0.056) 0.010 ng/mL (0.000-0.056) Pro-B-Type Natriuretic Peptide 62109 pg/mL (0-125) H Total Protein 6.9 G/DL (6.4-8.2) 7.1 G/DL (6.4-8.2) Albumin 3.4 G/DL (3.4-5.0) 3.4 G/DL (3.4-5.0) Globulin 3.5 g/dL 3.7 g/dL Albumin/Globulin Ratio 1.0 (1.0-2.7) 0.9 (1.0-2.7) L Urine Color Pale yellow Urine Appearance Clear Urine pH 7 (4.5-8.0) Urine Specific [place] 1.005 (1.005-1.035) Urine Protein Negative (NEGATIVE) Urine Glucose (UA) Negative (NEGATIVE) Urine Ketones Negative (NEGATIVE) Urine Occult Blood Negative (NEGATIVE) Urine Nitrite Negative (NEGATIVE) Urine Bilirubin Negative (NEGATIVE) Urine Urobilinogen Normal MG/DL (0.0-1.0) Urine Leukocyte Esterase Negative (NEGATIVE) Urine RBC 0-2 /HPF (0 - 0) H Urine WBC 0-2 /HPF (0 - 0) Urine Squamous Epithelial Cells Occasional /LPF Urine Bacteria Occasional /HPF (NONE) Urine Eosinophils None seen Urine Random Sodium 124 mmol/L (20-110) H Urine Potassium Timed 10 mmol/L (12-62) L Ammonia 19 umol/L (11-32) C-Reactive Protein, Quantitative < 0.4 mg/dL (0.00-0.90) Triglycerides Level 143 MG/DL (30-150) Cholesterol Level 134 MG/DL (< 200) LDL Cholesterol 64 mg/dL (<100) HDL Cholesterol 49 MG/DL (40-60) Cholesterol/HDL Ratio 2.7 (3.3-4.4) L Thyroid Stimulating Hormone (TSH) 2.203 uiU/mL (0.358-3.740) Brooks Marques MD Jan 12, 2018 19:16
[2018-01-12 20:00] VITALS: BP_SYST 123; BP_SYST 129; BP_SYST 145; BP_DIAS 62; BP_DIAS 65; BP_DIAS 71
--- NOTE | 2018-01-12 21:45 | Consultation ---
DATE OF CONSULTATION: 01/12/2018 CARDIOLOGY CONSULTATION CONSULTING PHYSICIAN: Brooks Marques M.D. REFERRING PHYSICIAN: Lopez Hernandez D.O. REASON FOR CONSULTATION: Evaluation of the patient's pacemaker as well as congestive heart failure and coronary artery bypass graft. 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 The patient was also short of breath with increased lower extremity edema. Cardiology consultation was requested for further evaluation and management. At the time of my evaluation, the patient's shortness of breath is improving, but still has lower extremity edema. PAST MEDICAL HISTORY: As mentioned above. FAMILY HISTORY: Noncontributory. SOCIAL HISTORY: He lives at home. Does not smoke or drink alcohol. REVIEW OF SYSTEMS: Review of systems was performed and was negative other than what was mentioned in the history of present illness. PHYSICAL EXAMINATION: VITAL SIGNS: Blood pressure is 127/54, pulse 69, respirations 18, and temperature 97.7 degrees. HEAD AND NECK: No JVD or carotid bruits. LUNGS: Coarse rhonchi. CARDIOVASCULAR: Regular S1 and S2 with no gallop or murmur. ABDOMEN: Soft. EXTREMITIES: A 1+ pitting edema. Pacemaker in the left subclavian area. LABORATORY AND DIAGNOSTIC DATA: White count of 4.9, hemoglobin 12.2, hematocrit 35.8, and platelet count 142. Sodium 138, potassium 4.0, BUN of 37, creatinine 2.3, and glucose of 110. Troponin negative x3. INR is 1.5. ASSESSMENT AND PLAN: 1. Congestive heart failure exacerbation. Echocardiogram showed ejection fraction of 30% to 35%, cardiomyopathy. We will start the patient on the Lasix, Coreg, lisinopril, and Aldactone. Maximize his medical therapy. We will try to get the previous echo report. If ejection fraction has been less than 35% in the past, the patient would need upgrade of pacemaker to a defibrillator. 2. Status post dual- chamber pacemaker. The brand of pacemaker is not clear at this time. We will try to contact the companies to find the brand of the pacemaker. The patient again may need upgrade of pacemaker to a defibrillator. 3. 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 4. Hypertension. Continue current heart failure medications. 5. Anemia. Thank you very much, Dr. Hernandez, for allowing me to participate in the care of this patient. Please do not hesitate to contact for any questions regarding my evaluation. Brooks Marques M.D. DR: JAKE JOB#: [id number] CC:
[2018-01-13 04:00] VITALS: BP 138/81
[2018-01-13 07:30] LABS: BASOPHILS % (AUTO) 0.6 % (0.0-2.0); HEMATOCRIT 33.5 % (42.0-52.0); HEMOGLOBIN 11.2 G/DL (14.2-18.0); LYMPHOCYTES % (AUTO) 15.7 % (20.0-45.0); MEAN CORPUSCULAR VOLUME 92 FL (80-99); MONOCYTES % (AUTO) 6.8 % (1.0-10.0); NEUTROPHILS % (AUTO) 72.8 % (45.0-75.0); PLATELET COUNT 121 K/UL (150-450); RED BLOOD COUNT 3.63 M/UL (4.70-6.10); RED CELL DISTRIBUTION WIDTH 12.7 % (11.6-14.8); WHITE BLOOD COUNT 5.1 K/UL (4.8-10.8)
--- NOTE | 2018-01-13 07:33 | Pulmonology Progress Note ---
Assessment/Plan Assessment/Plan ASSESSMENT CHF exacerbation cardiomyopathy with ejection fraction 30-35% status post mechanical fall chest pain, ACS was ruled out coagulopathy acute kidney injury versus chronic renal insufficiency possible dehydration orthostatic hypotension possible tiny intracranial hemorrhage pacemaker HTN PLAN OF CARE telemetry floor Serial troponin negative, EKG with paced rhythm, no cardiac complaints; ruled out for ACS cardiology follows ECHO with F 30-35%, moderate MR and RVSP of 23 a/failure regimen with BB, FARRAH and diuretics: Lasix and Aldactone, monitor volumes and cardiorenal parameters fup with CXR in am, pro BNP trending down pacemaker interrogation- per cardio discretion ; last done 3 months ago ( follows with cardio as outpt at [facility]) BP management with current regimen optimize as needed hold aspirin and fish oil for now, lipid panel stable, TSHWNL off empiric antibiotic, unlikely PNA O2 HHN prn Venous Duplex BLE neuro eval repeat CT head on Sunday neuro checks stable ammonia level WNL carotid Duplex orthostatic VS x 24 hrs - on last two checks + orthostatic hypotension 01/12 pm and this am s/p gentle IV fluids , no effect on creat, likely CRI monitor renal parameters lytes, correct ytes as needed , avoid nephrotoxic, creat raising to 2.6 with Lasix , per nephro recs Renal ultrasound trend INR , still 1.4 fall precautions PT/OT /ST supportive care case discussed and evaluated by supervising physician Subjective Allergies: Coded Allergies: No Known Allergies (Unverified , 01/11/18) Subjective feeling better no chest pain, sitting in the chair pusle ox stable, no SOB Objective Last 24 Hour Vital Signs Date Time Temp Pulse Resp B/P (MAP) Pulse Ox O2 Delivery O2 Flow Rate FiO2 01/13/18 04:00 98.1 74 22 138/81 98 Room Air 98.1 01/13/18 04:00 93 74 77 01/13/18 03:59 65 01/12/18 23:39 64 01/12/18 21:03 63 133/66 01/12/18 20:34 66 18 Room Air 01/12/18 20:00 129/65 01/12/18 20:00 123/71 01/12/18 20:00 97.6 63 18 145/62 98 Room Air 97.6 01/12/18 20:00 63 70 78 01/12/18 19:50 66 01/12/18 16:00 97.7 69 18 127/54 96 Room Air 97.7 01/12/18 16:00 69 60 83 01/12/18 16:00 68 01/12/18 12:46 63 130/68 01/12/18 12:00 63 78 101 01/12/18 12:00 97.2 63 18 130/68 95 Room Air 97.2 01/12/18 12:00 60 01/12/18 09:27 68 154/71 01/12/18 08:00 97.6 68 18 154/71 95 Room Air 97.6 01/12/18 08:00 66 Intake and Output 01/12/18 01/13/18 19:00 07:00 Intake Total 910 ml 678.3 ml Output Total 400 ml Balance 510 ml 678.3 ml Intake Oral 360 ml 120 ml IV Total 550 ml 558.3 ml Output Urine Total 400 ml # Voids 1 1 Objective General Appearance: no apparent distress, alert , responsive Lines, tubes and drains: peripheral HEENT: normocephalic, atraumatic, anicteric, mucous membranes moist Neck: supple Respiratory/Chest: lungs clear, no respiratory distress, no accessory muscle use Cardiovascular/Chest: normal peripheral pulses, normal rate, no JVD, pacemaker/ AICD - Left upper chest pacemaker Abdomen: normal bowel sounds, non tender, soft Extremities: normal range of motion, non-tender, no calf tenderness, normal capillary refill, trace to + 1 edema BLE Skin Exam: warm/dry Neurologic: alert, responsive Musculoskeletal: normal muscle bulk Laboratory Tests 01/12/18 09:00: White Blood Count 4.9, Red Blood Count 3.84L, Hemoglobin 12.2L, Hematocrit 35.8L , Mean Corpuscular Volume 93, Mean Corpuscular Hemoglobin 31.8H, Mean Corpuscular Hemoglobin Concent 34.2, Red Cell Distribution Width 12.8, Platelet Count 142L, Mean Platelet Volume 6.0L, Neutrophils (%) (Auto) 76.1H, Lymphocytes (%) (Auto) 10.9L, Monocytes (%) (Auto) 6.8, Eosinophils (%) (Auto) 5.2H, Basophils (%) (Auto) 1.0, Prothrombin Time 15.4H, Prothromb Time International Ratio 1.5H, Activated Partial Thromboplast Time 26, Sodium Level 138, Potassium Level 4.0, Chloride Level 103, Carbon Dioxide Level 25, Anion Gap 10, Blood Urea Nitrogen 37H, Creatinine 2.3H, Estimat Glomerular Filtration Rate , Glucose Level 110H, Calcium Level 10.2H, Total Bilirubin 0.5, Aspartate Amino Transf (AST/SGOT) 15, Alanine Aminotransferase (ALT/SGPT) 18, Alkaline Phosphatase 33L, Ammonia 19, Troponin I 0.018, C-Reactive Protein, Quantitative < 0.4, Total Protein 7.1, Albumin 3.4, Globulin 3.7, Albumin/Globulin Ratio 0.9L , Triglycerides Level 143, Cholesterol Level 134, LDL Cholesterol 64, HDL Cholesterol 49, Cholesterol/HDL Ratio 2.7L, Thyroid Stimulating Hormone (TSH) 2.203 01/12/18 16:10: Troponin I 0.010 01/13/18 05:42: White Blood Count [Pending], Red Blood Count [Pending], Hemoglobin [Pending], Hematocrit [Pending], Mean Corpuscular Volume [Pending], Mean Corpuscular Hemoglobin [Pending], Mean Corpuscular Hemoglobin Concent [Pending], Red Cell Distribution Width [Pending], Platelet Count [Pending], Mean Platelet Volume [ Pending], Neutrophils (%) (Auto) [Pending], Lymphocytes (%) (Auto) [Pending], Monocytes (%) (Auto) [Pending], Eosinophils (%) (Auto) [Pending], Basophils (%) (Auto) [Pending], Prothrombin Time [Pending], Prothromb Time International Ratio [Pending], Sodium Level [Pending], Potassium Level [Pending], Chloride Level [Pending], Carbon Dioxide Level [Pending], Blood Urea Nitrogen [Pending], Creatinine [Pending], Estimat Glomerular Filtration Rate [Pending], Glucose Level [Pending], Calcium Level [Pending], Total Bilirubin [Pending], Aspartate Amino Transf (AST/SGOT) [Pending], Alanine Aminotransferase (ALT/SGPT) [Pending] , Alkaline Phosphatase [Pending], Troponin I [Pending], Total Protein [Pending] , Albumin [Pending], Globulin [Pending], Uric Acid [Pending], Phosphorus Level [ Pending], Magnesium Level [Pending], Iron Level [Pending], Unsaturated Iron Binding [Pending], Ferritin [Pending], Pro-B-Type Natriuretic Peptide [Pending] , Vitamin B12 Level [Pending], Folate [Pending] Current Medications Medications (Trade) Dose Ordered Sig/Eva Route PRN Reason Start Time Stop Time Status Last Admin Dose Admin Acetaminophen (Tylenol) 650 mg Q4H PRN ORAL fever 01/11/18 22:15 02/10/18 22:14 Albuterol/ Ipratropium (Albuterol/ Ipratropium) 3 ml EVERY 4 HOURS PRN HHN Shortness of Breath 01/11/18 22:15 01/16/18 22:14 Amlodipine Besylate (Norvasc) 5 mg DAILY ORAL 01/13/18 09:00 02/12/18 08:59 Carvedilol (Coreg) 25 mg EVERY 12 HOURS ORAL 01/11/18 22:05 02/10/18 22:04 01/12/18 21:03 Clonidine HCl (Catapres Tab) 0.1 mg Q4H PRN ORAL For High Blood Pressure 01/11/18 22:15 02/10/18 22:14 Dextrose (Dextrose 50%) STAT PRN IV Hypoglycemia 01/11/18 22:15 02/10/18 22:14 Dextrose/Sodium Chloride 1,000 ml @ 50 mls/hr Q20H IV 01/11/18 22:01 02/10/18 22:00 01/12/18 18:50 Furosemide (Lasix) 40 mg EVERY 12 HOURS IV 01/12/18 21:00 02/11/18 20:59 01/12/18 21:03 Heparin Sodium (Porcine) (Heparin 5000 units/ml) 5,000 units EVERY 12 HOURS SUBQ 01/11/18 22:11 02/10/18 22:10 Lisinopril (Zestril) 10 mg DAILY ORAL 01/13/18 09:00 02/12/18 08:59 Lorazepam (Ativan 2mg/ml 1ml) 0.5 mg Q4H PRN IV For Anxiety 01/11/18 22:15 01/18/18 22:14 Morphine Sulfate (Morphine Sulfate) 1 mg Q4H PRN IVP For Pain 7-01/11/18 22:15 01/18/18 22:14 Nitroglycerin (Ntg) 0.4 mg Q5M X 3 DOSES PRN SL Prn Chest Pain 01/11/18 22:15 02/10/18 22:14 Ondansetron HCl (Zofran) 4 mg Q6H PRN IVP Nausea & Vomiting 01/11/18 22:15 02/10/18 22:14 Pantoprazole (Protonix) 40 mg DAILY ORAL 01/12/18 12:30 02/11/18 12:29 01/12/18 12:46 Polyethylene Glycol (Miralax) 17 gm HSPRN PRN ORAL Constipation 01/11/18 22:15 02/10/18 22:14 Promethazine HCl/ Codeine (Phenergan with Codeine) 5 ml Q4H PRN ORAL For Cough 01/11/18 22:15 02/10/18 22:14 Spironolactone (Aldactone) 25 mg DAILY ORAL 01/13/18 09:00 02/12/18 08:59 Tamsulosin HCl (Flomax) 0.4 mg BID ORAL 01/11/18 22:05 02/10/18 22:04 01/12/18 18:50 Temazepam (Restoril) 15 mg HSPRN PRN ORAL Insomnia 01/11/18 22:15 01/18/18 22:14 Priscilla Montoya NP Jan 13, 2018 07:33
[2018-01-13 07:47] LABS: INR 1.4 (0.9-1.1)
[2018-01-13 08:00] VITALS: BP 104/52
[2018-01-13 08:22] LABS: ALANINE AMINOTRANSFERASE 18 U/L (12-78); ALBUMIN/GLOBULIN RATIO 0.9 (1.0-2.7); ALKALINE PHOSPHATASE 28 U/L (46-116); ANION GAP 8 mmol/L (5-15); ASPARTATE AMINO TRANSFERASE 13 U/L (15-37); BILIRUBIN,TOTAL 0.4 MG/DL (0.2-1.0); BLOOD UREA NITROGEN 43 mg/dL (7-18); CALCIUM 9.6 MG/DL (8.5-10.1); CARBON DIOXIDE 25 MMOL/L (21-32); CHLORIDE 104 MMOL/L (98-107); CREATININE 2.6 MG/DL (0.55-1.30); FERRITIN 156 NG/ML (8-388); PHOSPHORUS 4.1 MG/DL (2.5-4.9); POTASSIUM 3.8 MMOL/L (3.5-5.1); SODIUM 137 MMOL/L (136-145)
[2018-01-13 08:42] LABS: % IRON SATURATION 16 % (15-50); IRON 58 ug/dL (50-175); TOTAL IRON BINDING CAPACITY 371 ug/dL (250-450)
[2018-01-13] MEDS: Heparin 5000 units/ml inj SUBQ SCH ×2 (09:00→20:54)
[2018-01-13] MEDS: Carvedilol 25mg Tab ORAL SCH ×2 (09:00→20:57)
[2018-01-13] MEDS ORDERED: Lisinopril 10mg tab ORAL SCH (09:00)
--- NOTE | 2018-01-13 09:12 | General Progress Note ---
Assessment/Plan Problem List: (1) SOB (shortness of breath) ICD Codes: R06.02 - Shortness of breath SNOMED: 668078424 (2) Anemia ICD Codes: D64.9 - Anemia, unspecified SNOMED: 890914447 (3) HTN (hypertension) ICD Codes: I10 - Essential (primary) hypertension SNOMED: 20440369 (4) CHF (congestive heart failure) ICD Codes: I50.9 - Heart failure, unspecified SNOMED: 31072948 (5) Pneumonia ICD Codes: J18.9 - Pneumonia, unspecified organism SNOMED: 955441241 (6) Chest pain ICD Codes: R07.9 - Chest pain, unspecified SNOMED: 58849963 (7) CAD (coronary artery disease) of artery bypass graft ICD Codes: I25.810 - Atherosclerosis of coronary artery bypass graft(s) without angina pectoris SNOMED: 34009859, 59715845, 476983772, 636292271, 856590953 Status: unchanged Assessment/Plan ot pt diet bp/pain control cbc bmp am Subjective Constitutional: Reports: weakness Respiratory: Reports: shortness of breath Allergies: Coded Allergies: No Known Allergies (Unverified , 01/11/18) All Systems: reviewed and negative except above Subjective sitting clam Objective Last 24 Hour Vital Signs Date Time Temp Pulse Resp B/P (MAP) Pulse Ox O2 Delivery O2 Flow Rate FiO2 01/13/18 08:22 71 18 Room Air 01/13/18 04:00 98.1 74 22 138/81 98 Room Air 98.1 01/13/18 04:00 93 74 77 01/13/18 03:59 65 01/12/18 23:39 64 01/12/18 21:03 63 133/66 01/12/18 20:34 66 18 Room Air 01/12/18 20:00 129/65 01/12/18 20:00 123/71 01/12/18 20:00 97.6 63 18 145/62 98 Room Air 97.6 01/12/18 20:00 63 70 78 01/12/18 19:50 66 01/12/18 16:00 97.7 69 18 127/54 96 Room Air 97.7 01/12/18 16:00 69 60 83 01/12/18 16:00 68 01/12/18 12:46 63 130/68 01/12/18 12:00 63 78 101 01/12/18 12:00 97.2 63 18 130/68 95 Room Air 97.2 01/12/18 12:00 60 01/12/18 09:27 68 154/71 Intake and Output 01/12/18 01/13/18 19:00 07:00 Intake Total 910 ml 678.3 ml Output Total 400 ml Balance 510 ml 678.3 ml Intake Oral 360 ml 120 ml IV Total 550 ml 558.3 ml Output Urine Total 400 ml # Voids 1 1 Laboratory Tests 01/12/18 16:10: Troponin I 0.010 01/13/18 05:42: Troponin I 0.015, White Blood Count 5.1, Red Blood Count 3.63L, Hemoglobin 11.2L , Hematocrit 33.5L, Mean Corpuscular Volume 92, Mean Corpuscular Hemoglobin 31.0 , Mean Corpuscular Hemoglobin Concent 33.5, Red Cell Distribution Width 12.7, Platelet Count 121L, Mean Platelet Volume 6.2L, Neutrophils (%) (Auto) 72.8, Lymphocytes (%) (Auto) 15.7L, Monocytes (%) (Auto) 6.8, Eosinophils (%) (Auto) 4.0H, Basophils (%) (Auto) 0.6, Prothrombin Time 15.1H, Prothromb Time International Ratio 1.4H, Sodium Level 137, Potassium Level 3.8, Chloride Level 104, Carbon Dioxide Level 25, Anion Gap 8, Blood Urea Nitrogen 43H, Creatinine 2.6H, Estimat Glomerular Filtration Rate , Glucose Level 109H, Uric Acid 4.9, Calcium Level 9.6, Phosphorus Level 4.1, Magnesium Level 1.8, Iron Level 58, Total Iron Binding Capacity 371, Percent Iron Saturation 16, Unsaturated Iron Binding 313, Ferritin 156, Total Bilirubin 0.4, Aspartate Amino Transf (AST/SGOT ) 13L, Alanine Aminotransferase (ALT/SGPT) 18, Alkaline Phosphatase 28L, Pro-B- Type Natriuretic Peptide 9832H, Total Protein 6.4, Albumin 3.0L, Globulin 3.4, Albumin/Globulin Ratio 0.9L, Vitamin B12 Level 602, Folate 26.7 Height (Feet): 5 Height (Inches): 8.00 Weight (Pounds): 160 General Appearance: lethargic EENT: normal ENT inspection Neck: normal alignment Cardiovascular: normal peripheral pulses, normal rate, regular rhythm Respiratory/Chest: chest wall non-tender, decreased breath sounds Abdomen: normal bowel sounds, non tender, soft Extremities: normal inspection Edema: no edema noted Arm (L), no edema noted Arm (R), no edema noted Leg (L), no edema noted Leg (R), no edema noted Pedal (L), no edema noted Pedal (R), no edema noted Generalized Neurologic: responsive, motor weakness Skin: normal pigmentation, warm/dry Lopez Hernandez DO Jan 13, 2018 09:12
[2018-01-13] MEDS: Tamsulosin 0.4mg cap ORAL SCH ×2 (09:23→18:34)
[2018-01-13] MEDS: Spironolactone 25mg tab ORAL SCH (09:25)
--- NOTE | 2018-01-13 11:55 | Nephrology Progress Note ---
Assessment/Plan Problem List: (1) Acute on chronic kidney failure (2) CHF (congestive heart failure) (3) Pacemaker (4) Anemia (5) CAD (coronary artery disease) of artery bypass graft Assessment no signs of chf Renal failure, likely chronic Cardiomyopathy EjFx 30-35% Status post mechanical fall Chest pain, rule out acute coronary syndrome Congestive heart failure Possible pneumonia Pacemaker mild Anemia Plan hold asa and fish oil due to suspected bleed in CT Gastric support Norvas for BP parameters for lisinopril 2D Echo 30-35% Ej Fx Kidney MANUEL pending Flomax stop hydrate watch renal parameters on Lasix Lisinopril and Aldactone Subjective ROS Limited/Unobtainable: No Constitutional: Reports: malaise, weakness Objective Objective Last 24 Hour Vital Signs Date Time Temp Pulse Resp B/P (MAP) Pulse Ox O2 Delivery O2 Flow Rate FiO2 01/13/18 08:22 71 18 Room Air 01/13/18 08:00 97 01/13/18 08:00 97.5 69 20 104/52 98 Room Air 97.5 01/13/18 04:00 98.1 74 22 138/81 98 Room Air 98.1 01/13/18 04:00 93 74 77 01/13/18 03:59 65 01/12/18 23:39 64 01/12/18 21:03 63 133/66 01/12/18 20:34 66 18 Room Air 01/12/18 20:00 129/65 01/12/18 20:00 123/71 01/12/18 20:00 97.6 63 18 145/62 98 Room Air 97.6 01/12/18 20:00 63 70 78 01/12/18 19:50 66 01/12/18 16:00 97.7 69 18 127/54 96 Room Air 97.7 01/12/18 16:00 69 60 83 01/12/18 16:00 68 01/12/18 12:46 63 130/68 01/12/18 12:00 63 78 101 01/12/18 12:00 97.2 63 18 130/68 95 Room Air 97.2 01/12/18 12:00 60 Intake and Output 01/12/18 01/13/18 19:00 07:00 Intake Total 910 ml 678.3 ml Output Total 400 ml Balance 510 ml 678.3 ml Intake Oral 360 ml 120 ml IV Total 550 ml 558.3 ml Output Urine Total 400 ml # Voids 1 1 Laboratory Tests 01/12/18 16:10: Troponin I 0.010 01/13/18 05:42: Troponin I 0.015, White Blood Count 5.1, Red Blood Count 3.63L, Hemoglobin 11.2L , Hematocrit 33.5L, Mean Corpuscular Volume 92, Mean Corpuscular Hemoglobin 31.0 , Mean Corpuscular Hemoglobin Concent 33.5, Red Cell Distribution Width 12.7, Platelet Count 121L, Mean Platelet Volume 6.2L, Neutrophils (%) (Auto) 72.8, Lymphocytes (%) (Auto) 15.7L, Monocytes (%) (Auto) 6.8, Eosinophils (%) (Auto) 4.0H, Basophils (%) (Auto) 0.6, Prothrombin Time 15.1H, Prothromb Time International Ratio 1.4H, Sodium Level 137, Potassium Level 3.8, Chloride Level 104, Carbon Dioxide Level 25, Anion Gap 8, Blood Urea Nitrogen 43H, Creatinine 2.6H, Estimat Glomerular Filtration Rate , Glucose Level 109H, Uric Acid 4.9, Calcium Level 9.6, Phosphorus Level 4.1, Magnesium Level 1.8, Iron Level 58, Total Iron Binding Capacity 371, Percent Iron Saturation 16, Unsaturated Iron Binding 313, Ferritin 156, Total Bilirubin 0.4, Aspartate Amino Transf (AST/SGOT ) 13L, Alanine Aminotransferase (ALT/SGPT) 18, Alkaline Phosphatase 28L, Pro-B- Type Natriuretic Peptide 9832H, Total Protein 6.4, Albumin 3.0L, Globulin 3.4, Albumin/Globulin Ratio 0.9L, Vitamin B12 Level 602, Folate 26.7 Height (Feet): 5 Height (Inches): 8.00 Weight (Pounds): 160 General Appearance: no apparent distress Neck: limited range of motion Cardiovascular: normal rate, pacemaker/AICD Respiratory/Chest: decreased breath sounds Abdomen: soft, distended Objective no change JAISON BECERRIL Jan 13, 2018 11:55
[2018-01-13 12:00] VITALS: BP 101/58
--- NOTE | 2018-01-13 14:13 | Cardiac Electrophysiology PN ---
Assessment/Plan Assessment/Plan 1. Congestive heart failure exacerbation. Echocardiogram showed ejection fraction of 30% to 35%. On Lasix, Coreg, lisinopril, and Aldactone. Maximize his medical therapy. We will try to get the previous echo report. If ejection fraction has been less than 35% in the past, the patient would need upgrade of pacemaker to a defibrillator. 2. Status post dual- chamber [place] [employer] pacemaker implant tghe day after TAVR at [facility] in 2015. Will interrogate. The patient again may need upgrade of pacemaker to a defibrillator. 3. 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 4. S/P TAVR 2015 5. Hypertension. Continue current heart failure medications. DC Norvasc 6. Anemia. DW RN and Subjective Subjective Feeling better. at bedside. In Atrial fib with V pacing Objective Last 24 Hour Vital Signs Date Time Temp Pulse Resp B/P (MAP) Pulse Ox O2 Delivery O2 Flow Rate FiO2 01/13/18 12:00 66 01/13/18 08:22 71 18 Room Air 01/13/18 08:00 97 01/13/18 08:00 97.5 69 20 104/52 98 Room Air 97.5 01/13/18 04:00 98.1 74 22 138/81 98 Room Air 98.1 01/13/18 04:00 93 74 77 01/13/18 03:59 65 01/12/18 23:39 64 01/12/18 21:03 63 133/66 01/12/18 20:34 66 18 Room Air 01/12/18 20:00 129/65 01/12/18 20:00 123/71 01/12/18 20:00 97.6 63 18 145/62 98 Room Air 97.6 01/12/18 20:00 63 70 78 01/12/18 19:50 66 01/12/18 16:00 97.7 69 18 127/54 96 Room Air 97.7 01/12/18 16:00 69 60 83 01/12/18 16:00 68 Intake and Output 01/12/18 01/13/18 19:00 07:00 Intake Total 910 ml 678.3 ml Output Total 400 ml Balance 510 ml 678.3 ml Intake Oral 360 ml 120 ml IV Total 550 ml 558.3 ml Output Urine Total 400 ml # Voids 1 1 Laboratory Tests Test 01/12/18 16:10 01/13/18 05:42 Troponin I 0.010 ng/mL (0.000-0.056) 0.015 ng/mL (0.000-0.056) White Blood Count 5.1 K/UL (4.8-10.8) Red Blood Count 3.63 M/UL (4.70-6.10) L Hemoglobin 11.2 G/DL (14.2-18.0) L Hematocrit 33.5 % (42.0-52.0) L Mean Corpuscular Volume 92 FL (80-99) Mean Corpuscular Hemoglobin 31.0 PG (27.0-31.0) Mean Corpuscular Hemoglobin Concent 33.5 G/DL (32.0-36.0) Red Cell Distribution Width 12.7 % (11.6-14.8) Platelet Count 121 K/UL (150-450) L Mean Platelet Volume 6.2 FL (6.5-10.1) L Neutrophils (%) (Auto) 72.8 % (45.0-75.0) Lymphocytes (%) (Auto) 15.7 % (20.0-45.0) L Monocytes (%) (Auto) 6.8 % (1.0-10.0) Eosinophils (%) (Auto) 4.0 % (0.0-3.0) H Basophils (%) (Auto) 0.6 % (0.0-2.0) Prothrombin Time 15.1 SEC (9.30-11.50) H Prothromb Time International Ratio 1.4 (0.9-1.1) H Sodium Level 137 MMOL/L (136-145) Potassium Level 3.8 MMOL/L (3.5-5.1) Chloride Level 104 MMOL/L (98-107) Carbon Dioxide Level 25 MMOL/L (21-32) Anion Gap 8 mmol/L (5-15) Blood Urea Nitrogen 43 mg/dL (7-18) H Creatinine 2.6 MG/DL (0.55-1.30) H Estimat Glomerular Filtration Rate mL/min (>60) Glucose Level 109 MG/DL (74-106) H Uric Acid 4.9 MG/DL (2.6-7.2) Calcium Level 9.6 MG/DL (8.5-10.1) Phosphorus Level 4.1 MG/DL (2.5-4.9) Magnesium Level 1.8 MG/DL (1.8-2.4) Iron Level 58 ug/dL (50-175) Total Iron Binding Capacity 371 ug/dL (250-450) Percent Iron Saturation 16 % (15-50) Unsaturated Iron Binding 313 ug/dL (112-346) Ferritin 156 NG/ML (8-388) Total Bilirubin 0.4 MG/DL (0.2-1.0) Aspartate Amino Transf (AST/SGOT) 13 U/L (15-37) L Alanine Aminotransferase (ALT/SGPT) 18 U/L (12-78) Alkaline Phosphatase 28 U/L (46-116) L C-Reactive Protein, Quantitative < 0.4 mg/dL (0.00-0.90) Pro-B-Type Natriuretic Peptide 9832 pg/mL (0-125) H Total Protein 6.4 G/DL (6.4-8.2) Albumin 3.0 G/DL (3.4-5.0) L Globulin 3.4 g/dL Albumin/Globulin Ratio 0.9 (1.0-2.7) L Vitamin B12 Level 602 PG/ML (193-986) Folate 26.7 NG/ML (8.6-58.9) Objective HEAD AND NECK: No JVD or carotid bruits. LUNGS: Coarse rhonchi. CARDIOVASCULAR: Regular S1 and S2 with no gallop or murmur. ABDOMEN: Soft. EXTREMITIES: A 1+ pitting edema. Pacemaker in the left subclavian area. Brooks Marques MD Jan 13, 2018 14:13
[2018-01-13 16:00] VITALS: BP 110/57
--- NOTE | 2018-01-13 17:46 | Cardiology Report ---
APPROVED REPORT EKG Measurement Heart [id number] [place] 256P [id number] Atrial pacing Left bundle branch block Abnormal ECG
[2018-01-13 20:00] VITALS: BP 127/51
[2018-01-14] VITALS: BP 112/62
[2018-01-14 04:00] VITALS: BP 104/58
[2018-01-14 08:00] VITALS: BP 111/53
[2018-01-14 08:22] LABS: BASOPHILS % (AUTO) 0.8 % (0.0-2.0); EOSINOPHILS % (AUTO) 5.5 % (0.0-3.0); HEMATOCRIT 31.7 % (42.0-52.0); HEMOGLOBIN 10.6 G/DL (14.2-18.0); LYMPHOCYTES % (AUTO) 13.8 % (20.0-45.0); MEAN CORPUSCULAR VOLUME 92 FL (80-99); MONOCYTES % (AUTO) 7.3 % (1.0-10.0); NEUTROPHILS % (AUTO) 72.6 % (45.0-75.0); PLATELET COUNT 118 K/UL (150-450); RED BLOOD COUNT 3.43 M/UL (4.70-6.10); RED CELL DISTRIBUTION WIDTH 12.7 % (11.6-14.8); WHITE BLOOD COUNT 4.7 K/UL (4.8-10.8)
[2018-01-14 08:38] LABS: ALANINE AMINOTRANSFERASE 15 U/L (12-78); ALBUMIN 2.9 G/DL (3.4-5.0); ALKALINE PHOSPHATASE 30 U/L (46-116); ASPARTATE AMINO TRANSFERASE 15 U/L (15-37); BILIRUBIN,DIRECT 0.2 MG/DL (0.0-0.3); BILIRUBIN,TOTAL 0.4 MG/DL (0.2-1.0); PHOSPHORUS 4.3 MG/DL (2.5-4.9)
[2018-01-14 08:46] LABS: ANION GAP 10 mmol/L (5-15); BLOOD UREA NITROGEN 52 mg/dL (7-18); CALCIUM 9.5 MG/DL (8.5-10.1); CARBON DIOXIDE 25 MMOL/L (21-32); CHLORIDE 102 MMOL/L (98-107); SODIUM 136 MMOL/L (136-145)
[2018-01-14] MEDS: Heparin 5000 units/ml inj SUBQ SCH ×2 (09:00→20:45)
[2018-01-14] MEDS ORDERED: Lisinopril 10mg tab ORAL SCH (09:00)
--- NOTE | 2018-01-14 09:12 | Cardiology Report ---
APPROVED REPORT EXAM: Two-dimensional and M-mode echocardiogram with Doppler and color Doppler. INDICATION function Technically difficult study due to poor acoustical windows. M-mode measurements not obtainable due to cardiac structure. Normal left ventricular chamber size. Mid anterior septal wall hypokinesis. Left ventricular ejection fraction estimated to be 45%. No evidence of left ventricular hypertrophy. Small posterior pericardial effusion. All other cardiac chamber sizes are within normal limits. 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 Thickened mitral valve leaflets with normal excursion. Mild mitral annulus and aortic root calcification. Pulmonic valve not well visualized. Normal tricuspid valve structure. IVC is normal in size and collapsible with respiration. A color flow and spectral Doppler study was performed and revealed: No aortic regurgitation. Peak aortic valve gradient of 15 mmHg and a mean of 8 mmHg. Aortic valve area 1.5 cm2 calculated by continuity equation. Moderate mitral regurgitation. Mitral diastolic velocities suggest reduced left ventricular relaxation c/w diastolic dysfunction grade 1. Trace tricuspid regurgitation. Tricuspid systolic velocities suggests peak right ventricular systolic pressure of 23 mmHg
[2018-01-14] MEDS: Tamsulosin 0.4mg cap ORAL SCH ×2 (09:32→17:53)
[2018-01-14] MEDS: Spironolactone 25mg tab ORAL SCH (09:32)
[2018-01-14] MEDS: Carvedilol 25mg Tab ORAL SCH ×2 (09:32→20:45)
--- NOTE | 2018-01-14 10:06 | Diagnostic Imaging Report ---
APPROVED REPORT CPT Code: 58859 Vascular Symptoms CVA/TIA: Doppler Spectral Velocity Analysis RightLeft arteries. The Doppler spectral flow analysis indicates the degree of stenosis is minimal (20%) in the common carotid arteries, mild (30-40%) in the both internal carotid arteries, and (30-40%) in the right external carotid and (40-50%) in the left external carotid arteries. VERTEBRAL- The vertebral arteries are patent, without evidence of stenosis or steal.
--- NOTE | 2018-01-14 10:06 | Diagnostic Imaging Report ---
APPROVED REPORT CPT Code: 23167 Present Symptoms Comments: Chest pain BILATERAL: Imaging reveals a patent deep venous system bilaterally. There is no evidence of thrombus within the femoral, popliteal or tibial segments. The right greater saphenous vein is also within normal limits. Doppler indicates normal spontaneous flow within these segments. The left greater saphenous vein was not well visualized. Incidental findings: Enlarged bakers cysts noted in the right and left knee area.
--- NOTE | 2018-01-14 10:33 | Diagnostic Imaging Report ---
Indication: Headache Technique: Contiguous 5 mm thick transaxial imaging of the head obtained in a Siemens Sensation [address] scanner. Soft tissue and bone windows generated. Automatic Exposure Control was utilized. Total Dose length Product (DLP): 1464.[address] Dose Index Volume (CTDIvol): 70.38 mGy Comparison: none Findings: There is moderate prominence of the ventricles, basal cisterns, and cerebral sulci consistent with atrophy. There is a wedge-shaped cystic focus in the right cerebellum consistent with an old infarct. There is a tiny rounded cystic focus in the left cerebellum consistent with a small vessel infarct. Cystic lacunar also noted in the right putamen. Fairly extensive vascular calcifications are present within the visualized internal carotid artery and basilar vertebral arteries. Moderate, nonspecific, white matter hypoattenuation is noted throughout the brain consistent with chronic small vessel disease. There is no midline shift, edema, acute hemorrhage, mass effect, or abnormal extra-axial fluid collections. Bones and extra osseous soft tissues are unremarkable. Impression: No acute intracranial bleed, mass effect or edema. 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 Moderate atrophy of the brain. Evidence of chronic small vessel disease involving white matter tracts. Atherosclerotic disease The CT scanner at [facility] is accredited by the [employer] and the scans are performed using dose optimization techniques as appropriate to a performed exam including Automatic Exposure control.
--- NOTE | 2018-01-14 11:09 | Consultation ---
History of Present Illness General Date patient seen: Jan 14, 2018 Chief Complaint: Generalized Weakness Referring physician: dr Hernandez Reason for Consultation: inpatient management Present Illness HPI 87-year-old [place] male with history of coronary artery bypass graft more than 20 years ago as well as history of pacemaker implantation last year, congestive heart failure, and hypertension, The pt has been having fatigue and low energy. the pt is forgetful and has anxiety. the pts is the decision maker Allergies: Coded Allergies: No Known Allergies (Unverified , 01/11/18) Medication History Scheduled Acetaminophen* (Acetaminophen 325MG Tablet*), Unknown Dose ORAL EVERY 12 HOURS, (Reported) Aspirin* (Aspirin*), 81 MG ORAL DAILY, (Reported) Carvedilol* (Carvedilol*), 25 MG ORAL EVERY 12 HOURS, (Reported) Febuxostat (Uloric), 80 MG ORAL DAILY, (Reported) Fish Oil (Fish Oil 1,000 mg Capsule), Unknown Dose ORAL DAILY, (Reported) Lisinopril (Lisinopril*), 5 MG ORAL DAILY Niacin (Niacin), 500 MG PO DAILY, (Reported) Nifedipine (Nifedipine*), 60 MG ORAL DAILY, (Reported) Omeprazole (Omeprazole), 40 MG ORAL DAILY, (Reported) Spironolactone (Aldactone), 25 MG ORAL DAILY Tamsulosin Hcl (Tamsulosin Hcl*), 0.4 MG ORAL BID, (Reported) Miscellaneous Medications Fe Fumarate/Vit C/B12-If/Fa (Tricon Capsule), 1 EACH PO, (Reported) Patient History Limited by: medical condition History Provided By: Patient, Medical Record, PMD Healthcare decision maker Resuscitation status Full Code Advanced Directive on File Past Medical/Surgical History Past Medical/Surgical History: (1) Intracranial bleed (2) CHF (congestive heart failure) (3) Pneumonia (4) Pacemaker (5) CAD (coronary artery disease) of artery bypass graft (6) Anemia (7) SOB (shortness of breath) (8) Chest pain (9) HTN (hypertension) (10) Acute on chronic kidney failure Review of Systems Psychiatric: Reports: prior hx, anxiety, emotional problems Physical Exam General Appearance: no apparent distress, alert Last 24 Hour Vital Signs Date Time Temp Pulse Resp B/P (MAP) Pulse Ox O2 Delivery O2 Flow Rate FiO2 01/14/18 09:32 58 111/53 01/14/18 09:00 111/53 01/14/18 08:20 67 18 Room Air 01/14/18 08:00 76 01/14/18 08:00 96.6 58 18 111/53 98 Room Air 96.6 01/14/18 04:00 97.7 70 20 104/58 96 Room Air 97.7 01/14/18 04:00 64 01/14/18 00:00 97.7 62 20 112/62 98 Room Air 97.7 01/14/18 00:00 62 01/13/18 20:57 67 127/51 01/13/18 20:03 78 18 Room Air 01/13/18 20:00 70 01/13/18 20:00 97.2 67 18 127/51 98 Room Air 97.2 01/13/18 16:00 67 01/13/18 16:00 97.8 60 18 110/57 98 Room Air 97.8 01/13/18 12:00 97.6 72 18 101/58 98 Room Air 97.6 01/13/18 12:00 63 72 73 01/13/18 12:00 66 Intake and Output 01/13/18 01/14/18 19:00 07:00 Intake Total 480 ml 100 ml Balance 480 ml 100 ml Intake Oral 480 ml 100 ml Laboratory Tests Test 01/14/18 06:00 White Blood Count 4.7 K/UL (4.8-10.8) L Red Blood Count 3.43 M/UL (4.70-6.10) L Hemoglobin 10.6 G/DL (14.2-18.0) L Hematocrit 31.7 % (42.0-52.0) L Mean Corpuscular Volume 92 FL (80-99) Mean Corpuscular Hemoglobin 31.0 PG (27.0-31.0) Mean Corpuscular Hemoglobin Concent 33.5 G/DL (32.0-36.0) Red Cell Distribution Width 12.7 % (11.6-14.8) Platelet Count 118 K/UL (150-450) L Mean Platelet Volume 6.5 FL (6.5-10.1) Neutrophils (%) (Auto) 72.6 % (45.0-75.0) Lymphocytes (%) (Auto) 13.8 % (20.0-45.0) L Monocytes (%) (Auto) 7.3 % (1.0-10.0) Eosinophils (%) (Auto) 5.5 % (0.0-3.0) H Basophils (%) (Auto) 0.8 % (0.0-2.0) Sodium Level 136 MMOL/L (136-145) Potassium Level 4.0 MMOL/L (3.5-5.1) Chloride Level 102 MMOL/L (98-107) Carbon Dioxide Level 25 MMOL/L (21-32) Anion Gap 10 mmol/L (5-15) Blood Urea Nitrogen 52 mg/dL (7-18) H Creatinine 3.0 MG/DL (0.55-1.30) H Estimat Glomerular Filtration Rate mL/min (>60) Glucose Level 106 MG/DL (74-106) Uric Acid 5.1 MG/DL (2.6-7.2) Calcium Level 9.5 MG/DL (8.5-10.1) Phosphorus Level 4.3 MG/DL (2.5-4.9) Magnesium Level 1.8 MG/DL (1.8-2.4) Total Bilirubin 0.4 MG/DL (0.2-1.0) Direct Bilirubin 0.2 MG/DL (0.0-0.3) Aspartate Amino Transf (AST/SGOT) 15 U/L (15-37) Alanine Aminotransferase (ALT/SGPT) 15 U/L (12-78) Alkaline Phosphatase 30 U/L (46-116) L Pro-B-Type Natriuretic Peptide 7835 pg/mL (0-125) H Total Protein 6.1 G/DL (6.4-8.2) L Albumin 2.9 G/DL (3.4-5.0) L Height (Feet): 5 Height (Inches): 8.00 Weight (Pounds): 160 Medications Current Medications Medications (Trade) Dose Ordered Sig/Eva Route PRN Reason Start Time Stop Time Status Last Admin Dose Admin Acetaminophen (Tylenol) 650 mg Q4H PRN ORAL fever 01/11/18 22:15 02/10/18 22:14 Albuterol/ Ipratropium (Albuterol/ Ipratropium) 3 ml EVERY 4 HOURS PRN HHN Shortness of Breath 01/11/18 22:15 7/4/18 22:14 Carvedilol (Coreg) 25 mg EVERY 12 HOURS ORAL 01/11/18 22:05 02/10/18 22:04 01/14/18 09:32 Clonidine HCl (Catapres Tab) 0.1 mg Q4H PRN ORAL For High Blood Pressure 01/11/18 22:15 02/10/18 22:14 Dextrose (Dextrose 50%) STAT PRN IV Hypoglycemia 01/11/18 22:15 02/10/18 22:14 Furosemide (Lasix) 40 mg DAILY IV 01/14/18 09:00 02/11/18 20:59 01/14/18 09:31 Heparin Sodium (Porcine) (Heparin 5000 units/ml) 5,000 units EVERY 12 HOURS SUBQ 01/11/18 22:11 02/10/18 22:10 01/13/18 20:54 Lisinopril (Zestril) 10 mg DAILY ORAL 01/14/18 09:00 02/12/18 08:59 Lorazepam (Ativan 2mg/ml 1ml) 0.5 mg Q4H PRN IV For Anxiety 01/11/18 22:15 01/18/18 22:14 Morphine Sulfate (Morphine Sulfate) 1 mg Q4H PRN IVP For Pain 01-2201/11/18 22:15 01/18/18 22:14 Nitroglycerin (Ntg) 0.4 mg Q5M X 3 DOSES PRN SL Prn Chest Pain 01/11/18 22:15 02/10/18 22:14 Ondansetron HCl (Zofran) 4 mg Q6H PRN IVP Nausea & Vomiting 01/11/18 22:15 02/10/18 22:14 Pantoprazole (Protonix) 40 mg DAILY ORAL 01/12/18 12:30 02/11/18 12:29 01/14/18 09:31 Polyethylene Glycol (Miralax) 17 gm HSPRN PRN ORAL Constipation 01/11/18 22:15 02/10/18 22:14 Promethazine HCl/ Codeine (Phenergan with Codeine) 5 ml Q4H PRN ORAL For Cough 01/11/18 22:15 02/10/18 22:14 Spironolactone (Aldactone) 25 mg DAILY ORAL 01/13/18 09:00 02/12/18 08:59 01/14/18 09:32 Tamsulosin HCl (Flomax) 0.4 mg BID ORAL 01/11/18 22:05 02/10/18 22:04 01/14/18 09:32 Temazepam (Restoril) 15 mg HSPRN PRN ORAL Insomnia 01/11/18 22:15 01/18/18 22:14 Assessment/Plan Assessment/Plan Anxiety cognitive impairment -ativan prn -the pts is the decision maker -the pt was provided with katelyn/Sheyla Morrell MD Jan 14, 2018 11:09
--- NOTE | 2018-01-14 11:29 | Pulmonology Progress Note ---
Assessment/Plan Problems: (1) SOB (shortness of breath) (2) CHF (congestive heart failure) (3) Pacemaker (4) CAD (coronary artery disease) of artery bypass graft Assessment/Plan respiratory treatment on Lasix 40 IV qd echocardiogram noted EF of 30% f/u renal studies f/u cardiology recommendation Subjective ROS Limited/Unobtainable: Yes Constitutional: Reports: no symptoms HEENT: Repors: no symptoms Allergies: Coded Allergies: No Known Allergies (Unverified , 01/11/18) Objective Last 24 Hour Vital Signs Date Time Temp Pulse Resp B/P (MAP) Pulse Ox O2 Delivery O2 Flow Rate FiO2 01/14/18 09:32 58 111/53 01/14/18 09:00 111/53 01/14/18 08:20 67 18 Room Air 01/14/18 08:00 76 01/14/18 08:00 96.6 58 18 111/53 98 Room Air 96.6 01/14/18 04:00 97.7 70 20 104/58 96 Room Air 97.7 01/14/18 04:00 64 01/14/18 00:00 97.7 62 20 112/62 98 Room Air 97.7 01/14/18 00:00 62 01/13/18 20:57 67 127/51 01/13/18 20:03 78 18 Room Air 01/13/18 20:00 70 01/13/18 20:00 97.2 67 18 127/51 98 Room Air 97.2 01/13/18 16:00 67 01/13/18 16:00 97.8 60 18 110/57 98 Room Air 97.8 01/13/18 12:00 97.6 72 18 101/58 98 Room Air 97.6 01/13/18 12:00 63 72 73 01/13/18 12:00 66 Intake and Output 01/13/18 01/14/18 19:00 07:00 Intake Total 480 ml 100 ml Balance 480 ml 100 ml Intake Oral 480 ml 100 ml General Appearance: WD/WN HEENT: normocephalic Respiratory/Chest: chest wall non-tender, lungs clear Cardiovascular: normal peripheral pulses, normal rate, regular rhythm Abdomen: normal bowel sounds, soft, non tender Genitourinary: normal external genitalia Extremities: no cyanosis Skin: no rash Laboratory Tests 01/14/18 06:00: White Blood Count 4.7L, Red Blood Count 3.43L, Hemoglobin 10.6L, Hematocrit 31.7L, Mean Corpuscular Volume 92, Mean Corpuscular Hemoglobin 31.0, Mean Corpuscular Hemoglobin Concent 33.5, Red Cell Distribution Width 12.7, Platelet Count 118L, Mean Platelet Volume 6.5, Neutrophils (%) (Auto) 72.6, Lymphocytes ( %) (Auto) 13.8L, Monocytes (%) (Auto) 7.3, Eosinophils (%) (Auto) 5.5H, Basophils (%) (Auto) 0.8, Sodium Level 136, Potassium Level 4.0, Chloride Level 102, Carbon Dioxide Level 25, Anion Gap 10, Blood Urea Nitrogen 52H, Creatinine 3.0H, Estimat Glomerular Filtration Rate , Glucose Level 106, Uric Acid 5.1, Calcium Level 9.5, Phosphorus Level 4.3, Magnesium Level 1.8, Total Bilirubin 0.4, Direct Bilirubin 0.2, Aspartate Amino Transf (AST/SGOT) 15, Alanine Aminotransferase (ALT/SGPT) 15, Alkaline Phosphatase 30L, Pro-B-Type Natriuretic Peptide 7835H, Total Protein 6.1L, Albumin 2.9L Current Medications Medications (Trade) Dose Ordered Sig/Eva Route PRN Reason Start Time Stop Time Status Last Admin Dose Admin Acetaminophen (Tylenol) 650 mg Q4H PRN ORAL fever 01/11/18 22:15 02/10/18 22:14 Albuterol/ Ipratropium (Albuterol/ Ipratropium) 3 ml EVERY 4 HOURS PRN HHN Shortness of Breath 01/11/18 22:15 01/16/18 22:14 Carvedilol (Coreg) 25 mg EVERY 12 HOURS ORAL 01/11/18 22:05 02/10/18 22:04 01/14/18 09:32 Clonidine HCl (Catapres Tab) 0.1 mg Q4H PRN ORAL For High Blood Pressure 01/11/18 22:15 02/10/18 22:14 Dextrose (Dextrose 50%) STAT PRN IV Hypoglycemia 01/11/18 22:15 02/10/18 22:14 Furosemide (Lasix) 40 mg DAILY IV 01/14/18 09:00 02/11/18 20:59 01/14/18 09:31 Heparin Sodium (Porcine) (Heparin 5000 units/ml) 5,000 units EVERY 12 HOURS SUBQ 01/11/18 22:11 02/10/18 22:10 01/13/18 20:54 Lisinopril (Zestril) 10 mg DAILY ORAL 01/14/18 09:00 02/12/18 08:59 Lorazepam (Ativan 2mg/ml 1ml) 0.5 mg Q4H PRN IV For Anxiety 01/11/18 22:15 01/18/18 22:14 Morphine Sulfate (Morphine Sulfate) 1 mg Q4H PRN IVP For Pain 701/11/18 22:15 01/18/18 22:14 Nitroglycerin (Ntg) 0.4 mg Q5M X 3 DOSES PRN SL Prn Chest Pain 01/11/18 22:15 02/10/18 22:14 Ondansetron HCl (Zofran) 4 mg Q6H PRN IVP Nausea & Vomiting 01/11/18 22:15 02/10/18 22:14 Pantoprazole (Protonix) 40 mg DAILY ORAL 01/12/18 12:30 02/11/18 12:29 01/14/18 09:31 Polyethylene Glycol (Miralax) 17 gm HSPRN PRN ORAL Constipation 01/11/18 22:15 02/10/18 22:14 Promethazine HCl/ Codeine (Phenergan with Codeine) 5 ml Q4H PRN ORAL For Cough 01/11/18 22:15 02/10/18 22:14 Spironolactone (Aldactone) 25 mg DAILY ORAL 01/13/18 09:00 02/12/18 08:59 01/14/18 09:32 Tamsulosin HCl (Flomax) 0.4 mg BID ORAL 01/11/18 22:05 02/10/18 22:04 01/14/18 09:32 Temazepam (Restoril) 15 mg HSPRN PRN ORAL Insomnia 01/11/18 22:15 01/18/18 22:14 Aaron Archer MD Jan 14, 2018 11:29
--- NOTE | 2018-01-14 11:54 | General Progress Note ---
Assessment/Plan Problem List: (1) SOB (shortness of breath) ICD Codes: R06.02 - Shortness of breath SNOMED: 701797690 (2) Anemia ICD Codes: D64.9 - Anemia, unspecified SNOMED: 931284261 (3) HTN (hypertension) ICD Codes: I10 - Essential (primary) hypertension SNOMED: 52177417 (4) CHF (congestive heart failure) ICD Codes: I50.9 - Heart failure, unspecified SNOMED: 45768562 (5) Pneumonia ICD Codes: J18.9 - Pneumonia, unspecified organism SNOMED: 012668775 (6) Chest pain ICD Codes: R07.9 - Chest pain, unspecified SNOMED: 94074330 (7) CAD (coronary artery disease) of artery bypass graft ICD Codes: I25.810 - Atherosclerosis of coronary artery bypass graft(s) without angina pectoris SNOMED: 79099099, 09139362, 872574771, 125583711, 416932486 Status: stable, progressing Assessment/Plan ot pt diet bp/pain control cbc bmp am dc plan w hh Subjective Constitutional: Reports: weakness Allergies: Coded Allergies: No Known Allergies (Unverified , 01/11/18) All Systems: reviewed and negative except above Subjective sitting clam Objective Last 24 Hour Vital Signs Date Time Temp Pulse Resp B/P (MAP) Pulse Ox O2 Delivery O2 Flow Rate FiO2 01/14/18 09:32 58 111/53 01/14/18 09:00 111/53 01/14/18 08:20 67 18 Room Air 01/14/18 08:00 76 01/14/18 08:00 96.6 58 18 111/53 98 Room Air 96.6 01/14/18 04:00 97.7 70 20 104/58 96 Room Air 97.7 01/14/18 04:00 64 01/14/18 00:00 97.7 62 20 112/62 98 Room Air 97.7 01/14/18 00:00 62 01/13/18 20:57 67 127/51 01/13/18 20:03 78 18 Room Air 01/13/18 20:00 70 01/13/18 20:00 97.2 67 18 127/51 98 Room Air 97.2 01/13/18 16:00 67 01/13/18 16:00 97.8 60 18 110/57 98 Room Air 97.8 01/13/18 12:00 97.6 72 18 101/58 98 Room Air 97.6 01/13/18 12:00 63 72 73 01/13/18 12:00 66 Intake and Output 01/13/18 01/14/18 19:00 07:00 Intake Total 480 ml 100 ml Balance 480 ml 100 ml Intake Oral 480 ml 100 ml Laboratory Tests 01/14/18 06:00: White Blood Count 4.7L, Red Blood Count 3.43L, Hemoglobin 10.6L, Hematocrit 31.7L, Mean Corpuscular Volume 92, Mean Corpuscular Hemoglobin 31.0, Mean Corpuscular Hemoglobin Concent 33.5, Red Cell Distribution Width 12.7, Platelet Count 118L, Mean Platelet Volume 6.5, Neutrophils (%) (Auto) 72.6, Lymphocytes ( %) (Auto) 13.8L, Monocytes (%) (Auto) 7.3, Eosinophils (%) (Auto) 5.5H, Basophils (%) (Auto) 0.8, Sodium Level 136, Potassium Level 4.0, Chloride Level 102, Carbon Dioxide Level 25, Anion Gap 10, Blood Urea Nitrogen 52H, Creatinine 3.0H, Estimat Glomerular Filtration Rate , Glucose Level 106, Uric Acid 5.1, Calcium Level 9.5, Phosphorus Level 4.3, Magnesium Level 1.8, Total Bilirubin 0.4, Direct Bilirubin 0.2, Aspartate Amino Transf (AST/SGOT) 15, Alanine Aminotransferase (ALT/SGPT) 15, Alkaline Phosphatase 30L, Pro-B-Type Natriuretic Peptide 7835H, Total Protein 6.1L, Albumin 2.9L Height (Feet): 5 Height (Inches): 8.00 Weight (Pounds): 160 General Appearance: lethargic EENT: normal ENT inspection Neck: normal alignment Cardiovascular: normal peripheral pulses, normal rate, regular rhythm Respiratory/Chest: chest wall non-tender, decreased breath sounds Abdomen: normal bowel sounds, non tender, soft Extremities: normal inspection Edema: no edema noted Arm (L), no edema noted Arm (R), no edema noted Leg (L), no edema noted Leg (R), no edema noted Pedal (L), no edema noted Pedal (R), no edema noted Generalized Neurologic: motor weakness Skin: normal pigmentation, warm/dry Lopez Hernandez DO Jan 14, 2018 11:54
[2018-01-14 12:00] VITALS: BP_SYST 111; BP_SYST 124; BP_DIAS 61; BP_DIAS 69
--- NOTE | 2018-01-14 12:10 | Diagnostic Imaging Report ---
Indication: Dyspnea Comparison: 01/12/2018 A single view chest radiograph was obtained. Findings: Heart is mildly enlarged. Sternotomy and pacemaker noted. Both costophrenic angles are blunted. There is some prominence of the interstitium without overt CHF at this time. IMPRESSION: Small bilateral pleural effusion suspected.
--- NOTE | 2018-01-14 13:22 | Nephrology Progress Note ---
Assessment/Plan Problem List: (1) Acute on chronic kidney failure (2) CHF (congestive heart failure) (3) Pacemaker (4) Anemia (5) CAD (coronary artery disease) of artery bypass graft Assessment no signs of chf Cr up to [address] appears calcification not bleed Renal failure, likely chronic Cardiomyopathy EjFx 30-35% Status post mechanical fall Chest pain, rule out acute coronary syndrome Congestive heart failure Possible pneumonia Pacemaker mild Anemia Plan decrease lisinopril and lasix dose Gastric support Norvasc for BP parameters for lisinopril 2D Echo 30-35% Ej Fx Kidney MANUEL pending Flomax stop hydrate watch renal parameters on Lasix Lisinopril and Aldactone Subjective ROS Limited/Unobtainable: No Constitutional: Reports: malaise Objective Objective Last 24 Hour Vital Signs Date Time Temp Pulse Resp B/P (MAP) Pulse Ox O2 Delivery O2 Flow Rate FiO2 01/14/18 09:32 58 111/53 01/14/18 09:00 111/53 01/14/18 08:20 67 18 Room Air 01/14/18 08:00 76 01/14/18 08:00 96.6 58 18 111/53 98 Room Air 96.6 01/14/18 04:00 97.7 70 20 104/58 96 Room Air 97.7 01/14/18 04:00 64 01/14/18 00:00 97.7 62 20 112/62 98 Room Air 97.7 01/14/18 00:00 62 01/13/18 20:57 67 127/51 01/13/18 20:03 78 18 Room Air 01/13/18 20:00 70 01/13/18 20:00 97.2 67 18 127/51 98 Room Air 97.2 01/13/18 16:00 67 01/13/18 16:00 97.8 60 18 110/57 98 Room Air 97.8 Intake and Output 01/13/18 01/14/18 19:00 07:00 Intake Total 480 ml 100 ml Balance 480 ml 100 ml Intake Oral 480 ml 100 ml Current Medications Medications (Trade) Dose Ordered Sig/Eva Route PRN Reason Start Time Stop Time Status Last Admin Dose Admin Acetaminophen (Tylenol) 650 mg Q4H PRN ORAL fever 01/11/18 22:15 02/10/18 22:14 Albuterol/ Ipratropium (Albuterol/ Ipratropium) 3 ml EVERY 4 HOURS PRN HHN Shortness of Breath 01/11/18 22:15 01/16/18 22:14 Carvedilol (Coreg) 25 mg EVERY 12 HOURS ORAL 01/11/18 22:05 02/10/18 22:04 01/14/18 09:32 Clonidine HCl (Catapres Tab) 0.1 mg Q4H PRN ORAL For High Blood Pressure 01/11/18 22:15 02/10/18 22:14 Dextrose (Dextrose 50%) STAT PRN IV Hypoglycemia 01/11/18 22:15 02/10/18 22:14 Furosemide (Lasix) 20 mg DAILY IV 01/15/18 09:00 02/11/18 20:59 Heparin Sodium (Porcine) (Heparin 5000 units/ml) 5,000 units EVERY 12 HOURS SUBQ 01/11/18 22:11 02/10/18 22:10 01/13/18 20:54 Lisinopril (Zestril) 5 mg DAILY ORAL 01/15/18 09:00 02/12/18 08:59 Lorazepam (Ativan 2mg/ml 1ml) 0.5 mg Q4H PRN IV For Anxiety 01/11/18 22:15 01/18/18 22:14 Nitroglycerin (Ntg) 0.4 mg Q5M X 3 DOSES PRN SL Prn Chest Pain 01/11/18 22:15 02/10/18 22:14 Pantoprazole (Protonix) 40 mg DAILY ORAL 01/12/18 12:30 02/11/18 12:29 01/14/18 09:31 Promethazine HCl/ Codeine (Phenergan with Codeine) 5 ml Q4H PRN ORAL For Cough 01/11/18 22:15 02/10/18 22:14 Spironolactone (Aldactone) 25 mg DAILY ORAL 01/13/18 09:00 02/12/18 08:59 01/14/18 09:32 Tamsulosin HCl (Flomax) 0.4 mg BID ORAL 01/11/18 22:05 02/10/18 22:04 01/14/18 09:32 Temazepam (Restoril) 15 mg HSPRN PRN ORAL Insomnia 01/11/18 22:15 01/18/18 22:14 Laboratory Tests 01/14/18 06:00: White Blood Count 4.7L, Red Blood Count 3.43L, Hemoglobin 10.6L, Hematocrit 31.7L, Mean Corpuscular Volume 92, Mean Corpuscular Hemoglobin 31.0, Mean Corpuscular Hemoglobin Concent 33.5, Red Cell Distribution Width 12.7, Platelet Count 118L, Mean Platelet Volume 6.5, Neutrophils (%) (Auto) 72.6, Lymphocytes ( %) (Auto) 13.8L, Monocytes (%) (Auto) 7.3, Eosinophils (%) (Auto) 5.5H, Basophils (%) (Auto) 0.8, Sodium Level 136, Potassium Level 4.0, Chloride Level 102, Carbon Dioxide Level 25, Anion Gap 10, Blood Urea Nitrogen 52H, Creatinine 3.0H, Estimat Glomerular Filtration Rate , Glucose Level 106, Uric Acid 5.1, Calcium Level 9.5, Phosphorus Level 4.3, Magnesium Level 1.8, Total Bilirubin 0.4, Direct Bilirubin 0.2, Aspartate Amino Transf (AST/SGOT) 15, Alanine Aminotransferase (ALT/SGPT) 15, Alkaline Phosphatase 30L, Pro-B-Type Natriuretic Peptide 7835H, Total Protein 6.1L, Albumin 2.9L Height (Feet): 5 Height (Inches): 8.00 Weight (Pounds): 160 General Appearance: no apparent distress Cardiovascular: normal rate Respiratory/Chest: decreased breath sounds Abdomen: soft Objective no change JAISON BECERRIL Jan 14, 2018 13:22
--- NOTE | 2018-01-14 15:25 | Cardiac Electrophysiology PN ---
Assessment/Plan Assessment/Plan 1. Congestive heart failure exacerbation. Echocardiogram showed EF 30% to 35%. On Lasix, Coreg, lisinopril, and Aldactone. We will try to get the previous echo report. If ejection fraction has been less than 35% in the past, the patient would need upgrade of pacemaker to a defibrillator. 2. Status post dual- chamber [employer] pacemaker implant the day after TAVR at [facility] in 2015. Interrogated and showed Nl Fx. 3. History of coronary artery bypass graft 20 years ago, on aspirin, beta- shayla, and statin. 4. S/P TAVR 2015 5. Hypertension. Continue current heart failure medications. 6. Anemia. DW RN and Subjective Subjective Less SOB. at bedside. In Atrial fib with V pacing Objective Last 24 Hour Vital Signs Date Time Temp Pulse Resp B/P (MAP) Pulse Ox O2 Delivery O2 Flow Rate FiO2 01/14/18 12:00 97.0 64 18 124/61 98 Room Air 97.0 01/14/18 12:00 78 01/14/18 12:00 97.5 83 18 111/69 97 Room Air 97.5 01/14/18 09:32 58 111/53 01/14/18 09:00 111/53 01/14/18 08:20 67 18 Room Air 01/14/18 08:00 76 01/14/18 08:00 96.6 58 18 111/53 98 Room Air 96.6 01/14/18 04:00 97.7 70 20 104/58 96 Room Air 97.7 01/14/18 04:00 64 01/14/18 00:00 97.7 62 20 112/62 98 Room Air 97.7 01/14/18 00:00 62 01/13/18 20:57 67 127/51 01/13/18 20:03 78 18 Room Air 01/13/18 20:00 70 01/13/18 20:00 97.2 67 18 127/51 98 Room Air 97.2 01/13/18 16:00 67 01/13/18 16:00 97.8 60 18 110/57 98 Room Air 97.8 Intake and Output 01/13/18 01/14/18 19:00 07:00 Intake Total 480 ml 100 ml Balance 480 ml 100 ml Intake Oral 480 ml 100 ml Laboratory Tests Test 01/14/18 06:00 White Blood Count 4.7 K/UL (4.8-10.8) L Red Blood Count 3.43 M/UL (4.70-6.10) L Hemoglobin 10.6 G/DL (14.2-18.0) L Hematocrit 31.7 % (42.0-52.0) L Mean Corpuscular Volume 92 FL (80-99) Mean Corpuscular Hemoglobin 31.0 PG (27.0-31.0) Mean Corpuscular Hemoglobin Concent 33.5 G/DL (32.0-36.0) Red Cell Distribution Width 12.7 % (11.6-14.8) Platelet Count 118 K/UL (150-450) L Mean Platelet Volume 6.5 FL (6.5-10.1) Neutrophils (%) (Auto) 72.6 % (45.0-75.0) Lymphocytes (%) (Auto) 13.8 % (20.0-45.0) L Monocytes (%) (Auto) 7.3 % (1.0-10.0) Eosinophils (%) (Auto) 5.5 % (0.0-3.0) H Basophils (%) (Auto) 0.8 % (0.0-2.0) Sodium Level 136 MMOL/L (136-145) Potassium Level 4.0 MMOL/L (3.5-5.1) Chloride Level 102 MMOL/L (98-107) Carbon Dioxide Level 25 MMOL/L (21-32) Anion Gap 10 mmol/L (5-15) Blood Urea Nitrogen 52 mg/dL (7-18) H Creatinine 3.0 MG/DL (0.55-1.30) H Estimat Glomerular Filtration Rate mL/min (>60) Glucose Level 106 MG/DL (74-106) Uric Acid 5.1 MG/DL (2.6-7.2) Calcium Level 9.5 MG/DL (8.5-10.1) Phosphorus Level 4.3 MG/DL (2.5-4.9) Magnesium Level 1.8 MG/DL (1.8-2.4) Total Bilirubin 0.4 MG/DL (0.2-1.0) Direct Bilirubin 0.2 MG/DL (0.0-0.3) Aspartate Amino Transf (AST/SGOT) 15 U/L (15-37) Alanine Aminotransferase (ALT/SGPT) 15 U/L (12-78) Alkaline Phosphatase 30 U/L (46-116) L Pro-B-Type Natriuretic Peptide 7835 pg/mL (0-125) H Total Protein 6.1 G/DL (6.4-8.2) L Albumin 2.9 G/DL (3.4-5.0) L Microbiology Date/Time Source Procedure Growth Status 01/13/18 19:09 Sputum Expectorated Gram Stain - Final Resulted 01/13/18 19:09 Sputum Expectorated Sputum Culture Pending Resulted Objective HEAD AND NECK: No JVD LUNGS: Coarse rhonchi. CARDIOVASCULAR: Irregular S1 and S2 with no gallop or murmur. ABDOMEN: Soft. EXTREMITIES: 1+ pitting edema. Pacemaker in the left subclavian area. Brooks Marques MD Jan 14, 2018 15:25
[2018-01-14 16:00] VITALS: BP 136/86
--- NOTE | 2018-01-14 16:18 | Diagnostic Imaging Report ---
Indication:Elevated Bun and Creatinine. Technique: Grayscale and duplex Doppler imaging of the kidneys performed. Comparison: None Findings: There is a cyst in the right kidney measuring 2.3 cm. Another cyst measuring 1.3 cm also demonstrated. A echogenic focus in the right kidney 7 mm noted. Large cyst in the left kidney measuring about 9 cm noted. Other smaller cysts are seen bilaterally. Left kidney is difficult to measure but is about 11 cm in length. Right kidney is about the same measuring 11 cm in length. The cortex of both kidneys appear echogenic. The bladder is moderately dilated. IVC is poorly seen. IMPRESSION: Medical renal disease. Multiple bilateral renal cysts. Distended urinary bladder
[2018-01-14 20:00] VITALS: BP 131/71
--- NOTE | 2018-01-14 20:50 | Infectious Diseases Prog Note ---
Assessment/Plan Assessment/Plan ASSESSMENT: The patient is a 87-year-old male with multiple medical problems who was admitted with: 1. Shortness of breath, no cough, less likely pneumonia. -CXR 01/14: Small bilateral pleural effusion suspected. -sp cx p 2. Most likely congestive heart failure due to high BNP that has improved rapidly over night with improvement of chest x-ray. Afebrile, no leukocytosis - CAD status by bypass surgery over 20 years ago. -. Status post pacemaker placement last year. - History of CHF. -. Anemia. -. Hypertension. PLAN: 1. Continue to monitor off abx -01/12 SP Levaquin #2 2. Monitor chest x-ray. 3. Monitor CBC and BMP. 4. Monitor cultures. 5. Based on the patient's clinical course and labs, we will do further recommendation. Subjective Allergies: Coded Allergies: No Known Allergies (Unverified , 01/11/18) Subjective afebrile at RA no leukocytosis Objective Vital Signs Last 24 Hour Vital Signs Date Time Temp Pulse Resp B/P (MAP) Pulse Ox O2 Delivery O2 Flow Rate FiO2 01/14/18 20:05 86 18 Room Air 01/14/18 16:00 97.0 95 20 136/86 99 Room Air 97.0 01/14/18 16:00 73 01/14/18 12:00 97.0 64 18 124/61 98 Room Air 97.0 01/14/18 12:00 78 01/14/18 12:00 97.5 83 18 111/69 97 Room Air 97.5 01/14/18 09:32 58 111/53 01/14/18 09:00 111/53 01/14/18 08:20 67 18 Room Air 01/14/18 08:00 76 01/14/18 08:00 96.6 58 18 111/53 98 Room Air 96.6 01/14/18 04:00 97.7 70 20 104/58 96 Room Air 97.7 01/14/18 04:00 64 01/14/18 00:00 97.7 62 20 112/62 98 Room Air 97.7 01/14/18 00:00 62 01/13/18 20:57 67 127/51 Height (Feet): 5 Height (Inches): 8.00 Weight (Pounds): 160 Objective HEENT: No pale conjunctivae. No icterus. NECK: No lymphadenopathy. CHEST: Clear. HEART: S1-S2. ABDOMEN: Soft and nontender. EXTREMITIES: No cyanosis. Microbiology Date/Time Source Procedure Growth Status 01/13/18 19:09 Sputum Expectorated Gram Stain - Final Resulted 01/13/18 19:09 Sputum Expectorated Sputum Culture Pending Resulted Laboratory Tests Test 01/14/18 06:00 White Blood Count 4.7 K/UL (4.8-10.8) L Red Blood Count 3.43 M/UL (4.70-6.10) L Hemoglobin 10.6 G/DL (14.2-18.0) L Hematocrit 31.7 % (42.0-52.0) L Mean Corpuscular Volume 92 FL (80-99) Mean Corpuscular Hemoglobin 31.0 PG (27.0-31.0) Mean Corpuscular Hemoglobin Concent 33.5 G/DL (32.0-36.0) Red Cell Distribution Width 12.7 % (11.6-14.8) Platelet Count 118 K/UL (150-450) L Mean Platelet Volume 6.5 FL (6.5-10.1) Neutrophils (%) (Auto) 72.6 % (45.0-75.0) Lymphocytes (%) (Auto) 13.8 % (20.0-45.0) L Monocytes (%) (Auto) 7.3 % (1.0-10.0) Eosinophils (%) (Auto) 5.5 % (0.0-3.0) H Basophils (%) (Auto) 0.8 % (0.0-2.0) Sodium Level 136 MMOL/L (136-145) Potassium Level 4.0 MMOL/L (3.5-5.1) Chloride Level 102 MMOL/L (98-107) Carbon Dioxide Level 25 MMOL/L (21-32) Anion Gap 10 mmol/L (5-15) Blood Urea Nitrogen 52 mg/dL (7-18) H Creatinine 3.0 MG/DL (0.55-1.30) H Estimat Glomerular Filtration Rate mL/min (>60) Glucose Level 106 MG/DL (74-106) Uric Acid 5.1 MG/DL (2.6-7.2) Calcium Level 9.5 MG/DL (8.5-10.1) Phosphorus Level 4.3 MG/DL (2.5-4.9) Magnesium Level 1.8 MG/DL (1.8-2.4) Total Bilirubin 0.4 MG/DL (0.2-1.0) Direct Bilirubin 0.2 MG/DL (0.0-0.3) Aspartate Amino Transf (AST/SGOT) 15 U/L (15-37) Alanine Aminotransferase (ALT/SGPT) 15 U/L (12-78) Alkaline Phosphatase 30 U/L (46-116) L Pro-B-Type Natriuretic Peptide 7835 pg/mL (0-125) H Total Protein 6.1 G/DL (6.4-8.2) L Albumin 2.9 G/DL (3.4-5.0) L Current Medications Medications (Trade) Dose Ordered Sig/Eva Route PRN Reason Start Time Stop Time Status Last Admin Dose Admin Acetaminophen (Tylenol) 650 mg Q4H PRN ORAL fever 01/11/18 22:15 02/10/18 22:14 Albuterol/ Ipratropium (Albuterol/ Ipratropium) 3 ml EVERY 4 HOURS PRN HHN Shortness of Breath 01/11/18 22:15 01/16/18 22:14 Carvedilol (Coreg) 25 mg EVERY 12 HOURS ORAL 01/11/18 22:05 02/10/18 22:04 01/14/18 09:32 Clonidine HCl (Catapres Tab) 0.1 mg Q4H PRN ORAL For High Blood Pressure 01/11/18 22:15 02/10/18 22:14 Dextrose (Dextrose 50%) STAT PRN IV Hypoglycemia 01/11/18 22:15 02/10/18 22:14 Furosemide (Lasix) 20 mg DAILY IV 01/15/18 09:00 02/11/18 20:59 Heparin Sodium (Porcine) (Heparin 5000 units/ml) 5,000 units EVERY 12 HOURS SUBQ 01/11/18 22:11 02/10/18 22:10 01/13/18 20:54 Lisinopril (Zestril) 5 mg DAILY ORAL 01/15/18 09:00 02/12/18 08:59 Lorazepam (Ativan 2mg/ml 1ml) 0.5 mg Q4H PRN IV For Anxiety 01/11/18 22:15 01/18/18 22:14 Nitroglycerin (Ntg) 0.4 mg Q5M X 3 DOSES PRN SL Prn Chest Pain 01/11/18 22:15 02/10/18 22:14 Pantoprazole (Protonix) 40 mg DAILY ORAL 01/12/18 12:30 02/11/18 12:29 01/14/18 09:31 Promethazine HCl/ Codeine (Phenergan with Codeine) 5 ml Q4H PRN ORAL For Cough 01/11/18 22:15 02/10/18 22:14 Spironolactone (Aldactone) 25 mg DAILY ORAL 01/13/18 09:00 02/12/18 08:59 01/14/18 09:32 Tamsulosin HCl (Flomax) 0.4 mg BID ORAL 01/11/18 22:05 02/10/18 22:04 01/14/18 17:53 Temazepam (Restoril) 15 mg HSPRN PRN ORAL Insomnia 01/11/18 22:15 01/18/18 22:14 Ngoc Purcell M.D. Jan 14, 2018 20:50
[2018-01-15] VITALS: BP 127/72
[2018-01-15 04:00] VITALS: BP 130/79
[2018-01-15 07:02] LABS: HEMATOCRIT 31.6 % (42.0-52.0); HEMOGLOBIN 10.9 G/DL (14.2-18.0); MEAN CORPUSCULAR VOLUME 93 FL (80-99); PLATELET COUNT 124 K/UL (150-450); RED BLOOD COUNT 3.41 M/UL (4.70-6.10); RED CELL DISTRIBUTION WIDTH 12.5 % (11.6-14.8); WHITE BLOOD COUNT 5.2 K/UL (4.8-10.8)
[2018-01-15 08:00] VITALS: BP 131/62
[2018-01-15] MEDS ORDERED: Lisinopril 2.5mg tab ORAL SCH (09:00)
[2018-01-15] MEDS: Heparin 5000 units/ml inj SUBQ SCH (09:00)
--- NOTE | 2018-01-15 09:07 | General Progress Note ---
Assessment/Plan Problem List: (1) SOB (shortness of breath) ICD Codes: R06.02 - Shortness of breath SNOMED: 784703088 (2) Anemia ICD Codes: D64.9 - Anemia, unspecified SNOMED: 902249680 (3) HTN (hypertension) ICD Codes: I10 - Essential (primary) hypertension SNOMED: 06116597 (4) CHF (congestive heart failure) ICD Codes: I50.9 - Heart failure, unspecified SNOMED: 01913446 (5) Pneumonia ICD Codes: J18.9 - Pneumonia, unspecified organism SNOMED: 740778298 (6) Chest pain ICD Codes: R07.9 - Chest pain, unspecified SNOMED: 86545985 (7) CAD (coronary artery disease) of artery bypass graft ICD Codes: I25.810 - Atherosclerosis of coronary artery bypass graft(s) without angina pectoris SNOMED: 56438436, 03389399, 078040302, 773249213, 196323838 Status: stable, progressing Assessment/Plan ot pt diet bp/pain control dc w hh if clear Subjective Constitutional: Reports: weakness Allergies: Coded Allergies: No Known Allergies (Unverified , 01/11/18) All Systems: reviewed and negative except above Subjective sitting clam Objective Last 24 Hour Vital Signs Date Time Temp Pulse Resp B/P (MAP) Pulse Ox O2 Delivery O2 Flow Rate FiO2 01/15/18 08:00 98.6 72 18 131/62 94 Room Air 98.6 01/15/18 07:55 78 18 Room Air 01/15/18 04:00 97.9 72 18 130/79 94 Room Air 97.9 01/15/18 04:00 65 01/15/18 00:00 97.9 71 18 127/72 95 Room Air 97.9 01/15/18 00:00 66 01/14/18 20:45 68 129/64 01/14/18 20:05 86 18 Room Air 01/14/18 20:00 98.3 68 18 131/71 99 Room Air 98.3 01/14/18 20:00 72 01/14/18 16:00 97.0 95 20 136/86 99 Room Air 97.0 01/14/18 16:00 73 01/14/18 12:00 97.0 64 18 124/61 98 Room Air 97.0 01/14/18 12:00 78 01/14/18 12:00 97.5 83 18 111/69 97 Room Air 97.5 01/14/18 09:32 58 111/53 Intake and Output 01/14/18 01/15/18 19:00 07:00 Intake Total 720 ml 120 ml Balance 720 ml 120 ml Intake Oral 720 ml 120 ml # Voids 2 Laboratory Tests 01/15/18 05:40: White Blood Count 5.2, Red Blood Count 3.41L, Hemoglobin 10.9L, Hematocrit 31.6L , Mean Corpuscular Volume 93, Mean Corpuscular Hemoglobin 32.0H, Mean Corpuscular Hemoglobin Concent 34.4, Red Cell Distribution Width 12.5, Platelet Count 124L, Mean Platelet Volume 6.8, Neutrophils (%) (Auto) , Lymphocytes (%) ( Auto) , Monocytes (%) (Auto) , Eosinophils (%) (Auto) , Basophils (%) (Auto) , Neutrophils % (Manual) [Pending], Lymphocytes % (Manual) [Pending], Platelet Estimate [Pending], Platelet Morphology [Pending], Sodium Level [Pending], Potassium Level [Pending], Chloride Level [Pending], Carbon Dioxide Level [ Pending], Blood Urea Nitrogen [Pending], Creatinine [Pending], Estimat Glomerular Filtration Rate [Pending], Glucose Level [Pending], Calcium Level [ Pending], Total Bilirubin [Pending], Aspartate Amino Transf (AST/SGOT) [Pending] , Alanine Aminotransferase (ALT/SGPT) [Pending], Alkaline Phosphatase [Pending] , Pro-B-Type Natriuretic Peptide [Pending], Total Protein [Pending], Albumin [ Pending], Globulin [Pending] Height (Feet): 5 Height (Inches): 8.00 Weight (Pounds): 160 General Appearance: alert EENT: normal ENT inspection Neck: normal alignment Cardiovascular: normal peripheral pulses, normal rate, regular rhythm Respiratory/Chest: chest wall non-tender, lungs clear, normal breath sounds Abdomen: normal bowel sounds, non tender, soft Extremities: normal inspection Edema: no edema noted Arm (L), no edema noted Arm (R), no edema noted Leg (L), no edema noted Leg (R), no edema noted Pedal (L), no edema noted Pedal (R), no edema noted Generalized Neurologic: responsive, motor weakness Skin: normal pigmentation, warm/dry Lopez Hernandez DO Jan 15, 2018 09:07
[2018-01-15] MEDS: Tamsulosin 0.4mg cap ORAL SCH (09:12)
[2018-01-15] MEDS: Spironolactone 25mg tab ORAL SCH (09:12)
[2018-01-15] MEDS: Carvedilol 25mg Tab ORAL SCH (09:12)
--- NOTE | 2018-01-15 10:50 | Nephrology Progress Note ---
Assessment/Plan Problem List: (1) Acute on chronic kidney failure (2) CHF (congestive heart failure) (3) Pacemaker (4) Anemia (5) CAD (coronary artery disease) of artery bypass graft Assessment no signs of chf Cr up to 3 as of 01/[address] appears calcification not bleed Renal failure, likely chronic Cardiomyopathy EjFx 30-35% Status post mechanical fall Chest pain, rule out acute coronary syndrome Congestive heart failure Possible pneumonia Pacemaker mild Anemia Plan todays labs pending decrease lisinopril and lasix dose Gastric support Norvasc for BP parameters for lisinopril 2D Echo 30-35% Ej Fx Kidney MANUEL pending Flomax stop hydrate watch renal parameters on Lasix Lisinopril and Aldactone Subjective ROS Limited/Unobtainable: No Constitutional: Reports: weakness Objective Objective Last 24 Hour Vital Signs Date Time Temp Pulse Resp B/P (MAP) Pulse Ox O2 Delivery O2 Flow Rate FiO2 01/15/18 09:12 131/62 01/15/18 09:12 72 131/62 01/15/18 08:00 76 01/15/18 08:00 98.6 72 18 131/62 94 Room Air 98.6 01/15/18 07:55 78 18 Room Air 01/15/18 04:00 97.9 72 18 130/79 94 Room Air 97.9 01/15/18 04:00 65 01/15/18 00:00 97.9 71 18 127/72 95 Room Air 97.9 01/15/18 00:00 66 01/14/18 20:45 68 129/64 01/14/18 20:05 86 18 Room Air 01/14/18 20:00 98.3 68 18 131/71 99 Room Air 98.3 01/14/18 20:00 72 01/14/18 16:00 97.0 95 20 136/86 99 Room Air 97.0 01/14/18 16:00 73 01/14/18 12:00 97.0 64 18 124/61 98 Room Air 97.0 01/14/18 12:00 78 01/14/18 12:00 97.5 83 18 111/69 97 Room Air 97.5 Intake and Output 01/14/18 01/15/18 19:00 07:00 Intake Total 720 ml 120 ml Balance 720 ml 120 ml Intake Oral 720 ml 120 ml # Voids 2 Laboratory Tests 01/15/18 05:40: White Blood Count 5.2, Red Blood Count 3.41L, Hemoglobin 10.9L, Hematocrit 31.6L , Mean Corpuscular Volume 93, Mean Corpuscular Hemoglobin 32.0H, Mean Corpuscular Hemoglobin Concent 34.4, Red Cell Distribution Width 12.5, Platelet Count 124L, Mean Platelet Volume 6.8, Neutrophils (%) (Auto) , Lymphocytes (%) ( Auto) , Monocytes (%) (Auto) , Eosinophils (%) (Auto) , Basophils (%) (Auto) , Differential Total Cells Counted 100, Neutrophils % (Manual) 78H, Lymphocytes % (Manual) 12L, Monocytes % (Manual) 4, Eosinophils % (Manual) 6H, Basophils % ( Manual) 0, Band Neutrophils 0, Platelet Estimate DecreasedL, Platelet Morphology Normal, Hypochromasia 1+, Sodium Level [Pending], Potassium Level [ Pending], Chloride Level [Pending], Carbon Dioxide Level [Pending], Blood Urea Nitrogen [Pending], Creatinine [Pending], Estimat Glomerular Filtration Rate [ Pending], Glucose Level [Pending], Calcium Level [Pending], Total Bilirubin [ Pending], Aspartate Amino Transf (AST/SGOT) [Pending], Alanine Aminotransferase (ALT/SGPT) [Pending], Alkaline Phosphatase [Pending], Pro-B-Type Natriuretic Peptide [Pending], Total Protein [Pending], Albumin [Pending], Globulin [Pending ] Height (Feet): 5 Height (Inches): 8.00 Weight (Pounds): 160 General Appearance: no apparent distress, other - no SOB Cardiovascular: normal rate Respiratory/Chest: decreased breath sounds Abdomen: soft Objective no change JAISON BECERRIL Jan 15, 2018 10:50
[2018-01-15] MEDS ORDERED: ALDACTONE25 MG ORAL (11:38)
[2018-01-15] MEDS ORDERED: LISINOPRIL5 MG ORAL (11:38)
--- NOTE | 2018-01-15 11:40 | Pulmonology Progress Note ---
Assessment/Plan Problems: (1) SOB (shortness of breath) (2) CHF (congestive heart failure) (3) Pacemaker (4) CAD (coronary artery disease) of artery bypass graft Assessment/Plan feeling better respiratory treatment on Lasix 40 IV qd echocardiogram noted EF of 30% f/u renal studies f/u cardiology recommendation dc planning Subjective ROS Limited/Unobtainable: No Constitutional: Reports: no symptoms HEENT: Repors: no symptoms Respiratory: Reports: no symptoms Allergies: Coded Allergies: No Known Allergies (Unverified , 01/11/18) Objective Last 24 Hour Vital Signs Date Time Temp Pulse Resp B/P (MAP) Pulse Ox O2 Delivery O2 Flow Rate FiO2 01/15/18 09:12 131/62 01/15/18 09:12 72 131/62 01/15/18 08:00 76 01/15/18 08:00 98.6 72 18 131/62 94 Room Air 98.6 01/15/18 07:55 78 18 Room Air 01/15/18 04:00 97.9 72 18 130/79 94 Room Air 97.9 01/15/18 04:00 65 01/15/18 00:00 97.9 71 18 127/72 95 Room Air 97.9 01/15/18 00:00 66 01/14/18 20:45 68 129/64 01/14/18 20:05 86 18 Room Air 01/14/18 20:00 98.3 68 18 131/71 99 Room Air 98.3 01/14/18 20:00 72 01/14/18 16:00 97.0 95 20 136/86 99 Room Air 97.0 01/14/18 16:00 73 01/14/18 12:00 97.0 64 18 124/61 98 Room Air 97.0 01/14/18 12:00 78 01/14/18 12:00 97.5 83 18 111/69 97 Room Air 97.5 Intake and Output 01/14/18 01/15/18 19:00 07:00 Intake Total 720 ml 120 ml Balance 720 ml 120 ml Intake Oral 720 ml 120 ml # Voids 2 General Appearance: WD/WN HEENT: normocephalic, atraumatic Respiratory/Chest: chest wall non-tender, lungs clear Cardiovascular: normal peripheral pulses, normal rate Abdomen: normal bowel sounds, soft, non tender Genitourinary: normal external genitalia Extremities: no cyanosis Skin: no rash Neurologic/Psychiatric: tailor's aide II-XII grossly normal Microbiology Date/Time Source Procedure Growth Status 01/13/18 19:09 Sputum Expectorated Gram Stain - Final Resulted 01/13/18 19:09 Sputum Expectorated Sputum Culture - Preliminary NORMAL UPPER RESPIRATORY MIKE AT 24 ... Resulted Laboratory Tests 01/15/18 05:40: White Blood Count 5.2, Red Blood Count 3.41L, Hemoglobin 10.9L, Hematocrit 31.6L , Mean Corpuscular Volume 93, Mean Corpuscular Hemoglobin 32.0H, Mean Corpuscular Hemoglobin Concent 34.4, Red Cell Distribution Width 12.5, Platelet Count 124L, Mean Platelet Volume 6.8, Neutrophils (%) (Auto) , Lymphocytes (%) ( Auto) , Monocytes (%) (Auto) , Eosinophils (%) (Auto) , Basophils (%) (Auto) , Differential Total Cells Counted 100, Neutrophils % (Manual) 78H, Lymphocytes % (Manual) 12L, Monocytes % (Manual) 4, Eosinophils % (Manual) 6H, Basophils % ( Manual) 0, Band Neutrophils 0, Platelet Estimate DecreasedL, Platelet Morphology Normal, Hypochromasia 1+, Sodium Level [Pending], Potassium Level [ Pending], Chloride Level [Pending], Carbon Dioxide Level [Pending], Blood Urea Nitrogen [Pending], Creatinine [Pending], Estimat Glomerular Filtration Rate [ Pending], Glucose Level [Pending], Calcium Level [Pending], Total Bilirubin [ Pending], Aspartate Amino Transf (AST/SGOT) [Pending], Alanine Aminotransferase (ALT/SGPT) [Pending], Alkaline Phosphatase [Pending], Pro-B-Type Natriuretic Peptide [Pending], Total Protein [Pending], Albumin [Pending], Globulin [Pending ] Current Medications Medications (Trade) Dose Ordered Sig/Eva Route PRN Reason Start Time Stop Time Status Last Admin Dose Admin Acetaminophen (Tylenol) 650 mg Q4H PRN ORAL fever 01/11/18 22:15 02/10/18 22:14 Albuterol/ Ipratropium (Albuterol/ Ipratropium) 3 ml EVERY 4 HOURS PRN HHN Shortness of Breath 01/11/18 22:15 01/16/18 22:14 Carvedilol (Coreg) 25 mg EVERY 12 HOURS ORAL 01/11/18 22:05 02/10/18 22:04 01/15/18 09:12 Clonidine HCl (Catapres Tab) 0.1 mg Q4H PRN ORAL For High Blood Pressure 01/11/18 22:15 02/10/18 22:14 Dextrose (Dextrose 50%) STAT PRN IV Hypoglycemia 01/11/18 22:15 02/10/18 22:14 Furosemide (Lasix) 20 mg DAILY IV 01/15/18 09:00 02/11/18 20:59 01/15/18 09:13 Heparin Sodium (Porcine) (Heparin 5000 units/ml) 5,000 units EVERY 12 HOURS SUBQ 01/11/18 22:11 02/10/18 22:10 01/13/18 20:54 Lisinopril (Zestril) 5 mg DAILY ORAL 01/15/18 09:00 02/12/18 08:59 01/15/18 09:12 Lorazepam (Ativan 2mg/ml 1ml) 0.5 mg Q4H PRN IV For Anxiety 01/11/18 22:15 01/18/18 22:14 Nitroglycerin (Ntg) 0.4 mg Q5M X 3 DOSES PRN SL Prn Chest Pain 01/11/18 22:15 02/10/18 22:14 Pantoprazole (Protonix) 40 mg DAILY ORAL 01/12/18 12:30 02/11/18 12:29 01/15/18 09:12 Promethazine HCl/ Codeine (Phenergan with Codeine) 5 ml Q4H PRN ORAL For Cough 01/11/18 22:15 02/10/18 22:14 Spironolactone (Aldactone) 25 mg DAILY ORAL 01/13/18 09:00 02/12/18 08:59 01/15/18 09:12 Tamsulosin HCl (Flomax) 0.4 mg BID ORAL 01/11/18 22:05 02/10/18 22:04 01/15/18 09:12 Temazepam (Restoril) 15 mg HSPRN PRN ORAL Insomnia 01/11/18 22:15 01/18/18 22:14 Aaron Archer MD Jan 15, 2018 11:40
--- NOTE | 2018-01-15 11:41 | Diagnostic Imaging Report ---
Indication: Dyspnea Comparison: 01/14/2018 A single view chest radiograph was obtained. Findings: Sternotomy noted. Heart size is normal. Pacemaker again noted. Lungs are essentially clear. Small pleural effusions may be present. IMPRESSION: Small bilateral pleural effusion suspected. No change
[2018-01-15 12:00] VITALS: BP 124/68
--- NOTE | 2018-01-15 12:06 | Infectious Diseases Prog Note ---
Assessment/Plan Assessment/Plan ASSESSMENT: The patient is a 87-year-old male with multiple medical problems who was admitted with: 1. Shortness of breath, no cough, less likely pneumonia. -CXR 01/15: Lungs are essentially clear. Small pleural effusions may be present. -CXR 01/14: Small bilateral pleural effusion suspected. -sp cx normal juan c to date 2. Most likely congestive heart failure due to high BNP that has improved rapidly over night with improvement of chest x-ray. Afebrile, no leukocytosis - CAD status by bypass surgery over 20 years ago. -. Status post pacemaker placement last year. - History of CHF. -. Anemia. -. Hypertension. PLAN: 1. Continue to monitor off abx; ok to discharge from VT perspective -01/12 SP Levaquin #2 2. Monitor chest x-ray. 3. Monitor CBC and BMP. 4. Monitor cultures. 5. Based on the patient's clinical course and labs, we will do further recommendation. Subjective Allergies: Coded Allergies: No Known Allergies (Unverified , 01/11/18) Subjective afebrile at RA no leukocytosis off abx discharge planning Objective Vital Signs Last 24 Hour Vital Signs Date Time Temp Pulse Resp B/P (MAP) Pulse Ox O2 Delivery O2 Flow Rate FiO2 01/15/18 09:12 131/62 01/15/18 09:12 72 131/62 01/15/18 08:00 76 01/15/18 08:00 98.6 72 18 131/62 94 Room Air 98.6 01/15/18 07:55 78 18 Room Air 01/15/18 04:00 97.9 72 18 130/79 94 Room Air 97.9 01/15/18 04:00 65 01/15/18 00:00 97.9 71 18 127/72 95 Room Air 97.9 01/15/18 00:00 66 01/14/18 20:45 68 129/64 01/14/18 20:05 86 18 Room Air 01/14/18 20:00 98.3 68 18 131/71 99 Room Air 98.3 01/14/18 20:00 72 01/14/18 16:00 97.0 95 20 136/86 99 Room Air 97.0 01/14/18 16:00 73 Height (Feet): 5 Height (Inches): 8.00 Weight (Pounds): 160 Objective HEENT: No pale conjunctivae. No icterus. NECK: No lymphadenopathy. CHEST: Clear. HEART: S1-S2. ABDOMEN: Soft and nontender. EXTREMITIES: No cyanosis. Microbiology Date/Time Source Procedure Growth Status 01/13/18 19:09 Sputum Expectorated Gram Stain - Final Resulted 01/13/18 19:09 Sputum Expectorated Sputum Culture - Preliminary NORMAL UPPER RESPIRATORY JUAN C AT 24 ... Resulted Laboratory Tests Test 01/15/18 05:40 White Blood Count 5.2 K/UL (4.8-10.8) Red Blood Count 3.41 M/UL (4.70-6.10) L Hemoglobin 10.9 G/DL (14.2-18.0) L Hematocrit 31.6 % (42.0-52.0) L Mean Corpuscular Volume 93 FL (80-99) Mean Corpuscular Hemoglobin 32.0 PG (27.0-31.0) H Mean Corpuscular Hemoglobin Concent 34.4 G/DL (32.0-36.0) Red Cell Distribution Width 12.5 % (11.6-14.8) Platelet Count 124 K/UL (150-450) L Mean Platelet Volume 6.8 FL (6.5-10.1) Neutrophils (%) (Auto) % (45.0-75.0) Lymphocytes (%) (Auto) % (20.0-45.0) Monocytes (%) (Auto) % (1.0-10.0) Eosinophils (%) (Auto) % (0.0-3.0) Basophils (%) (Auto) % (0.0-2.0) Differential Total Cells Counted 100 Neutrophils % (Manual) 78 % (45-75) H Lymphocytes % (Manual) 12 % (20-45) L Monocytes % (Manual) 4 % (1-10) Eosinophils % (Manual) 6 % (0-3) H Basophils % (Manual) 0 % (0-2) Band Neutrophils 0 % (0-8) Platelet Estimate Decreased L Platelet Morphology Normal Hypochromasia 1+ Sodium Level Pending Potassium Level Pending Chloride Level Pending Carbon Dioxide Level Pending Blood Urea Nitrogen Pending Creatinine Pending Estimat Glomerular Filtration Rate Pending Glucose Level Pending Calcium Level Pending Total Bilirubin Pending Aspartate Amino Transf (AST/SGOT) Pending Alanine Aminotransferase (ALT/SGPT) Pending Alkaline Phosphatase Pending Pro-B-Type Natriuretic Peptide Pending Total Protein Pending Albumin Pending Globulin Pending Current Medications Medications (Trade) Dose Ordered Sig/Eva Route PRN Reason Start Time Stop Time Status Last Admin Dose Admin Acetaminophen (Tylenol) 650 mg Q4H PRN ORAL fever 01/11/18 22:15 02/10/18 22:14 Albuterol/ Ipratropium (Albuterol/ Ipratropium) 3 ml EVERY 4 HOURS PRN HHN Shortness of Breath 01/11/18 22:15 01/16/18 22:14 Carvedilol (Coreg) 25 mg EVERY 12 HOURS ORAL 01/11/18 22:05 02/10/18 22:04 01/15/18 09:12 Clonidine HCl (Catapres Tab) 0.1 mg Q4H PRN ORAL For High Blood Pressure 01/11/18 22:15 02/10/18 22:14 Dextrose (Dextrose 50%) STAT PRN IV Hypoglycemia 01/11/18 22:15 02/10/18 22:14 Furosemide (Lasix) 20 mg DAILY IV 01/15/18 09:00 02/11/18 20:59 01/15/18 09:13 Heparin Sodium (Porcine) (Heparin 5000 units/ml) 5,000 units EVERY 12 HOURS SUBQ 01/11/18 22:11 02/10/18 22:10 01/13/18 20:54 Lisinopril (Zestril) 5 mg DAILY ORAL 01/15/18 09:00 02/12/18 08:59 01/15/18 09:12 Lorazepam (Ativan 2mg/ml 1ml) 0.5 mg Q4H PRN IV For Anxiety 01/11/18 22:15 01/18/18 22:14 Nitroglycerin (Ntg) 0.4 mg Q5M X 3 DOSES PRN SL Prn Chest Pain 01/11/18 22:15 02/10/18 22:14 Pantoprazole (Protonix) 40 mg DAILY ORAL 01/12/18 12:30 02/11/18 12:29 01/15/18 09:12 Promethazine HCl/ Codeine (Phenergan with Codeine) 5 ml Q4H PRN ORAL For Cough 01/11/18 22:15 02/10/18 22:14 Spironolactone (Aldactone) 25 mg DAILY ORAL 01/13/18 09:00 02/12/18 08:59 01/15/18 09:12 Tamsulosin HCl (Flomax) 0.4 mg BID ORAL 01/11/18 22:05 02/10/18 22:04 01/15/18 09:12 Temazepam (Restoril) 15 mg HSPRN PRN ORAL Insomnia 01/11/18 22:15 01/18/18 22:14 Ngoc Purcell M.D. Jan 15, 2018 12:06
[2018-01-15 12:16] LABS: ALANINE AMINOTRANSFERASE 18 U/L (12-78); ALBUMIN 3.2 G/DL (3.4-5.0); ALKALINE PHOSPHATASE 32 U/L (46-116); ANION GAP 12 mmol/L (5-15); ASPARTATE AMINO TRANSFERASE 16 U/L (15-37); BILIRUBIN,TOTAL 0.4 MG/DL (0.2-1.0); BLOOD UREA NITROGEN 58 mg/dL (7-18); CALCIUM 9.3 MG/DL (8.5-10.1); CARBON DIOXIDE 24 MMOL/L (21-32); CHLORIDE 104 MMOL/L (98-107); POTASSIUM 4.4 MMOL/L (3.5-5.1); SODIUM 140 MMOL/L (136-145)
[2018-01-15 16:01] VITALS: BP 138/64
--- NOTE | 2018-01-15 16:34 | General Progress Note ---
Assessment/Plan Assessment/Plan Anxiety cognitive impairment -ativan prn -the pts is the decision maker -the pt was provided with ro/st Subjective Date patient seen: Jan 15, 2018 Neurologic/Psychiatric: Reports: anxiety, emotional problems Allergies: Coded Allergies: No Known Allergies (Unverified , 01/11/18) Objective Last 24 Hour Vital Signs Date Time Temp Pulse Resp B/P (MAP) Pulse Ox O2 Delivery O2 Flow Rate FiO2 01/15/18 16:01 98.3 69 18 138/64 98 Room Air 98.3 01/15/18 16:00 64 01/15/18 12:00 64 01/15/18 12:00 98.1 66 18 124/68 98 Room Air 98.1 01/15/18 09:12 131/62 01/15/18 09:12 72 131/62 01/15/18 08:00 76 01/15/18 08:00 98.6 72 18 131/62 94 Room Air 98.6 01/15/18 07:55 78 18 Room Air 01/15/18 04:00 97.9 72 18 130/79 94 Room Air 97.9 01/15/18 04:00 65 01/15/18 00:00 97.9 71 18 127/72 95 Room Air 97.9 01/15/18 00:00 66 01/14/18 20:45 68 129/64 01/14/18 20:05 86 18 Room Air 01/14/18 20:00 98.3 68 18 131/71 99 Room Air 98.3 01/14/18 20:00 72 Intake and Output 01/14/18 01/15/18 19:00 07:00 Intake Total 720 ml 120 ml Balance 720 ml 120 ml Intake Oral 720 ml 120 ml # Voids 2 Laboratory Tests 01/15/18 05:40: White Blood Count 5.2, Red Blood Count 3.41L, Hemoglobin 10.9L, Hematocrit 31.6L , Mean Corpuscular Volume 93, Mean Corpuscular Hemoglobin 32.0H, Mean Corpuscular Hemoglobin Concent 34.4, Red Cell Distribution Width 12.5, Platelet Count 124L, Mean Platelet Volume 6.8, Neutrophils (%) (Auto) , Lymphocytes (%) ( Auto) , Monocytes (%) (Auto) , Eosinophils (%) (Auto) , Basophils (%) (Auto) , Differential Total Cells Counted 100, Neutrophils % (Manual) 78H, Lymphocytes % (Manual) 12L, Monocytes % (Manual) 4, Eosinophils % (Manual) 6H, Basophils % ( Manual) 0, Band Neutrophils 0, Platelet Estimate DecreasedL, Platelet Morphology Normal, Hypochromasia 1+, Sodium Level 140, Potassium Level 4.4, Chloride Level 104, Carbon Dioxide Level 24, Anion Gap 12, Blood Urea Nitrogen 58H, Creatinine 3.0H, Estimat Glomerular Filtration Rate , Glucose Level 90, Calcium Level 9.3, Total Bilirubin 0.4, Aspartate Amino Transf (AST/SGOT) 16, Alanine Aminotransferase (ALT/SGPT) 18, Alkaline Phosphatase 32L, Pro-B-Type Natriuretic Peptide 6763H, Total Protein 6.3L, Albumin 3.2L, Globulin 3.1, Albumin/Globulin Ratio 1.0 Height (Feet): 5 Height (Inches): 8.00 Weight (Pounds): 160 General Appearance: no apparent distress, alert Sheyla Chamorro MD Jan 15, 2018 16:34
--- NOTE | 2018-01-15 16:37 | Cardiac Electrophysiology PN ---
Assessment/Plan Assessment/Plan 1. Congestive heart failure exacerbation. Echocardiogram EF 30% to 35%. On Lasix, Coreg, lisinopril, and Aldactone. We will try to get the previous echo report as out patient. If ejection fraction has been less than 35% in the past, will need upgrade of pacemaker to a defibrillator. 2. Status post dual- chamber [place] scientific pacemaker implant the day after TAVR at [facility] in 2015. Interrogated and showed Nl Fx. 3. History of coronary artery bypass graft 20 years ago, on aspirin, beta- shayla, and statin. 4. S/P TAVR 2015 5. Hypertension. Continue current medications. 6. Anemia. DW RN and DC home today Subjective Subjective Feeling better. at bedside. In Atrial fib with V pacing Objective Last 24 Hour Vital Signs Date Time Temp Pulse Resp B/P (MAP) Pulse Ox O2 Delivery O2 Flow Rate FiO2 01/15/18 16:01 98.3 69 18 138/64 98 Room Air 98.3 01/15/18 16:00 64 01/15/18 12:00 64 01/15/18 12:00 98.1 66 18 124/68 98 Room Air 98.1 01/15/18 09:12 131/62 01/15/18 09:12 72 131/62 01/15/18 08:00 76 01/15/18 08:00 98.6 72 18 131/62 94 Room Air 98.6 01/15/18 07:55 78 18 Room Air 01/15/18 04:00 97.9 72 18 130/79 94 Room Air 97.9 01/15/18 04:00 65 01/15/18 00:00 97.9 71 18 127/72 95 Room Air 97.9 01/15/18 00:00 66 01/14/18 20:45 68 129/64 01/14/18 20:05 86 18 Room Air 01/14/18 20:00 98.3 68 18 131/71 99 Room Air 98.3 01/14/18 20:00 72 Intake and Output 01/14/18 01/15/18 19:00 07:00 Intake Total 720 ml 120 ml Balance 720 ml 120 ml Intake Oral 720 ml 120 ml # Voids 2 Laboratory Tests Test 01/15/18 05:40 White Blood Count 5.2 K/UL (4.8-10.8) Red Blood Count 3.41 M/UL (4.70-6.10) L Hemoglobin 10.9 G/DL (14.2-18.0) L Hematocrit 31.6 % (42.0-52.0) L Mean Corpuscular Volume 93 FL (80-99) Mean Corpuscular Hemoglobin 32.0 PG (27.0-31.0) H Mean Corpuscular Hemoglobin Concent 34.4 G/DL (32.0-36.0) Red Cell Distribution Width 12.5 % (11.6-14.8) Platelet Count 124 K/UL (150-450) L Mean Platelet Volume 6.8 FL (6.5-10.1) Neutrophils (%) (Auto) % (45.0-75.0) Lymphocytes (%) (Auto) % (20.0-45.0) Monocytes (%) (Auto) % (1.0-10.0) Eosinophils (%) (Auto) % (0.0-3.0) Basophils (%) (Auto) % (0.0-2.0) Differential Total Cells Counted 100 Neutrophils % (Manual) 78 % (45-75) H Lymphocytes % (Manual) 12 % (20-45) L Monocytes % (Manual) 4 % (1-10) Eosinophils % (Manual) 6 % (0-3) H Basophils % (Manual) 0 % (0-2) Band Neutrophils 0 % (0-8) Platelet Estimate Decreased L Platelet Morphology Normal Hypochromasia 1+ Sodium Level 140 MMOL/L (136-145) Potassium Level 4.4 MMOL/L (3.5-5.1) Chloride Level 104 MMOL/L (98-107) Carbon Dioxide Level 24 MMOL/L (21-32) Anion Gap 12 mmol/L (5-15) Blood Urea Nitrogen 58 mg/dL (7-18) H Creatinine 3.0 MG/DL (0.55-1.30) H Estimat Glomerular Filtration Rate mL/min (>60) Glucose Level 90 MG/DL (74-106) Calcium Level 9.3 MG/DL (8.5-10.1) Total Bilirubin 0.4 MG/DL (0.2-1.0) Aspartate Amino Transf (AST/SGOT) 16 U/L (15-37) Alanine Aminotransferase (ALT/SGPT) 18 U/L (12-78) Alkaline Phosphatase 32 U/L (46-116) L Pro-B-Type Natriuretic Peptide 6763 pg/mL (0-125) H Total Protein 6.3 G/DL (6.4-8.2) L Albumin 3.2 G/DL (3.4-5.0) L Globulin 3.1 g/dL Albumin/Globulin Ratio 1.0 (1.0-2.7) Microbiology Date/Time Source Procedure Growth Status 01/13/18 19:09 Sputum Expectorated Gram Stain - Final Resulted 01/13/18 19:09 Sputum Expectorated Sputum Culture - Preliminary NORMAL UPPER RESPIRATORY MIKE AT 24 ... Resulted Objective HEAD AND NECK: No JVD LUNGS: Coarse rhonchi. CARDIOVASCULAR: Irregular S1 and S2 with no gallop or murmur. ABDOMEN: Soft. EXTREMITIES: 1+ pitting edema. Pacemaker in the left subclavian area. Brooks Marques MD Jan 15, 2018 16:37
[2018-01-15] MEDS ORDERED: D5NS 1000ml IV ONE (16:46)
--- NOTE | 2018-01-18 08:06 | Discharge Summary ---
Discharge Summary Discharge Summary _ DATE OF ADMISSION: 01/11/2018 DATE OF DISCHARGE: 01/15/2018 REASON FOR ADMISSION: 87 year old male with history of coronary artery disease, status post CABG, permanent pacemaker, status post TAVR, hypertension, presented with shortness of breath and chest pressure with associated generalized weakness for one week and mechanical fall 6 days ago. Chest pain resolved without interventions. He denied loss of consciousness or blackouts during the fall, but reported stumbling and hitting his head. He denied fever, chills, cough, nausea vomiting diarrhea Patient was taking Lasix in the past but as per his customer service coordinator's recommendations stopped it. Upon evaluation in emergency department vital signs were stable except elevated blood pressure. CT of the head revealed possible tiny left putamen hemorrhage, no mass effect. Otherwise no acute intracranial pathology. Troponin was negative. Pro BNP 58730. EKG demonstrated paced rhythm. Chest x-ray demonstrated bilateral pleural effusion with bibasilar atelectasis, possible consolidation. CT of the cervical spine revealed no acute fracture. Laboratory workup revealed renal insufficiency with BUN 41 and creatinine 2.3. Mild anemia. Last pacemaker interrogation done 3 months ago and was normal Patient admitted with diagnosis of status post mechanical fall, chest pain, rule out acute coronary syndrome, congestive heart failure with elevated pro BNP , probable exacerbation, possible pneumonia, acute kidney injury versus chronic renal insufficiency, possibly tiny intracranial hemorrhage ,pacemaker. CONSULTANTS: customer service coordinator Dr. Marques pulmonary Dr. Archer ID specialist Dr. Junior regional construction manager Dr. Hagen psychiatrist [facility] COURSE: Patient admitted to telemetry floor. Cardiology closely followed. Serial troponin were negative. EKG showed paced rhythm. Patient had no further cardiac complaints. Patient was rule out for acute myocardial infarction. Echocardiogram revealed normal left ventricular chamber size, mild anterior septal wall hypokinesis. Left ventricular ejection fraction estimated to be 45% , no evidence of left ventricular hypertrophy. Moderate mitral regurgitation. Right ventricular systolic pressure of 23. Patient started on diuretics. Cardiorenal parameters and volumes were closely monitored. Patient was on anti-failure medications with Lasix, Coreg, lisinopril and Aldactone. Patient had dual-chamber posterior scientific pacemaker implantation after TAVR. Interrogation showed normal functioning. Patient had a history of coronary artery bypass graft 20 years ago. Patient was on aspirin but beta shayla and statin. Lipid panel stable. Patient also had a history of TAVR in 2016. Blood pressure was managed with current regimen and remained stable. Supplemental oxygen provided as needed to keep pulse oximetry above 92%. Pulmonary toilet provided as needed. Food Beverage Supervisor closely followed. Patient initially started on antibiotic for possible pneumonia. Follow-up chest x-ray revealed no evidence of consolidation Patient was afebrile, no leukocytosis. Antibiotics were discontinued as per infectious disease specialist recommendations. Infectious disease specialist recommended to keep patient off antibiotic and observe closely. Venous duplex bilateral lower extremity was negative. DVT prophylaxis provided. Can Cleaner closely followed. Renal ultrasound revealed evidence of medical renal disease and multiply bilateral renal cysts. Renal parameters and electrolytes were closely monitored, electrolytes were corrected as needed . Dose of Lasix and lisinopril was decreased and Norvasc was added to existing antihypertensive regimen. Can Cleaner recommended closely monitor renal parameters since patient was on Lasix , Aldactone and, lisinopril. Flomax was continued. Gastric support provided. Initial CT of the head revealed evidence of possible tiny hemorrhage. Repeated CT head revealed no evidence of intracranial bleeding or mass effect. Neuro checks were stable Ammonia level was within normal limits Carotid duplex revealed minimal degree of stenosis in internal carotid arteries and mild degree in external carotid arteries. Initial orthostatic vital signs revealed orthostatic hypotension. Patient received gentle IV hydration , subsequently discontinued. Full precautions were maintained Patient was working with physical and occupational therapist. Supportive care provided . Anemia workup revealed stable iron ,B12 and folate levels, likely anemia of chronic disease. Hemoglobin and hematocrit were closely monitored with goal to keep hemoglobin above 7 . Prior to discharge hemoglobin 10.9 , hematocrit 31.6. Psychiatrist, seen and evaluated patient, diagnosed patient with anxiety and cognitive impairment. Reality orientation and supportive therapy provided. Anxiolytics provided as needed. Patient was clinically improving. ProBNP trending down from initial 13,689 down to 6763, follow-up chest x-ray revealed improvement in aeration and only small bilateral pleural effusion. Pulse oximetry stable on room air, no signs of respiratory distress, no chest pain . Patient was stable for discharge home. FINAL DIAGNOSES: Congestive heart failure exacerbation Status post dual-chamber [place] [employer] pacemaker implantation Coronary artery disease with history of coronary artery bypass graft Hypertension History off TAVR Anemia Acute on chronic kidney failure s/p mechanical fall orthostatic hypotension DISCHARGE MEDICATIONS: See Medication Reconciliation list. DISCHARGE INSTRUCTIONS: Patient was discharged home with home health services; follow-up with the primary care provider next week and customer service coordinator. Priscilla Montoya NP Jan 18, 2018 08:06
== END 2018-01-15 16:47 | disposition home or self-care (01) | DRG 291 ==
LOC: EDBD 19:30 → EMR 19:40 → 2E 21:05 → EDBEDREQ 21:34 → 2E 22:20
DX: I13.0 Hypertensive heart and chronic kidney disease with heart failure and stage 1 through stage 4 chronic kidney disease, or unspecified chronic kidney disease (principal); J18.9 Pneumonia, unspecified organism; N17.9 Acute kidney failure, unspecified; I42.9 Cardiomyopathy, unspecified; I50.9 Heart failure, unspecified; I25.10 Atherosclerotic heart disease of native coronary artery without angina pectoris; Z95.1 Presence of aortocoronary bypass graft; Z95.0 Presence of cardiac pacemaker; Z95.5 Presence of coronary angioplasty implant and graft; Z95.2 Presence of prosthetic heart valve; R53.1 Weakness; Z91.81 History of falling; R07.9 Chest pain, unspecified; D64.9 Anemia, unspecified; I95.1 Orthostatic hypotension; N18.9 Chronic kidney disease, unspecified; F41.9 Anxiety disorder, unspecified; I34.0 Nonrheumatic mitral (valve) insufficiency
CPT/HCPCS: 36415; 70450; 71045; 72125; 76770; 80048; 80053; 80061; 80076; 81001; 82140; 82550; 82553; 82607; 82728; 82746; 83540; 83550; 83735; 83880; 84100; 84133; 84300; 84443; 84484; 84550; 85007; 85025; 85610; 85730; 86140; 87070; 87205; 89050; 93005; 93306; 93880; 93970; 94664; 99285

== ENCOUNTER 2019-06-19 14:54 | Inpatient (IN) | payer BC, MEDICARE ==
[2019-06-19] VITALS (17 sets, daily range): BP systolic 96–129; BP diastolic 56–106
[~2019-06-19] VITALS: Ht 185.4 cm; Wt 80.4 kg
[~2019-06-19 14:54] MED LIST: ACETAMINOPHEN325 M1 ORAL; ADALAT20 MG ORAL; ALDACTONE25 MG ORAL; ASPIRIN81 MG ORAL; CARVEDILOL25 MG ORAL; FISH OIL CAP1000 MG ORAL; LISINOPRIL5 MG ORAL; NIACIN500 M3 PO; OMEPRAZOLE40 M1 ORAL; TAMSULOSIN HCL0.4 MG ORAL; TRICON CAPSULE1 EACH PO; ULORIC80 MG ORAL
--- NOTE | 2019-06-19 15:30 | NUR ---
ED Nurse Note: Brought in by [facility] from home due to left side chest pain that radiates to LUQ since 1407. NTG 2 spray and ASA 324mg given. Decreased pain from 7/10 to 6/10. Patient now c/o LUQ abd pain. patient ao4 nad. attached to monitor; afib hr 130. family at bedside. iv access established prior to arrival. left chest pace noted
--- NOTE | 2019-06-19 15:45 | NUR ---
ED Nurse Note: iv access established. blood collected; sent down to lab. patient remains calm.
--- NOTE | 2019-06-19 15:58 | Emergency Room Report ---
History of Present Illness General Chief Complaint: Chest Pain Source: Patient, Medical Record, EMS Present Illness HPI 88-year-old male history of CABG, hypertension, hyperlipidemia presents with chest pain and palpitations that started 1 hour prior to arrival, no aggravating relieving factors severity is moderate, constant he feels a discomfort in his chest, no nausea no vomiting no diaphoresis, he does feel short of breath and fatigued Allergies: Coded Allergies: No Known Allergies (Unverified , 01/11/18) Patient History Past Medical History: see triage record Reviewed Nursing Documentation: PMH: Agreed; PSxH: Agreed Nursing Documentation-PMH Past Medical History: No History, Except For Hx Cardiac Problems: Yes - Bypass Surgery Hx Pacemaker: Yes Hx Cancer: No Hx Gastrointestinal Problems: No Hx Neurological Problems: No Review of Systems All Other Systems: negative except mentioned in HPI Physical Exam Vital Signs Date Time Temp Pulse Resp B/P (MAP) Pulse Ox O2 Delivery O2 Flow Rate FiO2 06/19/19 15:25 97.5 130 16 106/72 (83) 97 Room Air Sp02 EP Interpretation: reviewed, normal General Appearance: alert, mild distress Head: normocephalic, atraumatic Eyes: bilateral eye PERRL, bilateral eye EOMI ENT: uvula midline, moist mucus membranes Neck: supple, thyroid normal, supple/symm/no masses Respiratory: no respiratory distress, no retraction, no accessory muscle use, decreased breath sounds Cardiovascular #1: normal peripheral pulses, no edema, no gallop, no murmur, tachycardia, irregularly irregular Gastrointestinal: non tender, soft, no guarding, no rebound Musculoskeletal: normal inspection Neurologic: alert, oriented x3 Psychiatric: mood/affect normal Skin: no rash, warm/dry Procedures Critical Care Time Critical Care Time Given the critical condition in which the patient arrived, the patient was immediately assessed by myself and the nurse, and cardiac monitoring initiated due to the potential for rapid decompensation of the patient's clinical condition. During the course of the patient's stay, I spent a considerable amount of time at the bedside performing serial re-evaluations of the patient's hemodynamic and clinical status because of the recognized potential threat to life or limb in this condition. I then had a chance to review not only all of the available current laboratory and radiographic studies obtained today, but I also reviewed old records available to me at the time. 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 Sequential vital signs were obtained. Critical Care time of 36 minutes was performed exclusive of billable procedures. Medical Decision Making Diagnostic Impression: Primary Impression: Chest pain Qualified Codes: R07.9 - Chest pain, unspecified Additional Impressions: NSTEMI (non-ST elevated myocardial infarction) CHF exacerbation Qualified Codes: I50.9 - Heart failure, unspecified Pulmonary edema Qualified Codes: J81.0 - Acute pulmonary edema ER Course 88-year-old male presents with chest pain, shortness of breath, differential diagnosis includes CHF, ACS, Patient found to have pulmonary edema, Lasix given, fluids stopped, patient with an elevated troponin, patient also given Lovenox, patient already received aspirin in route, will provide nitro paste Patient will require admission, metoprolol 5 mg IV was given to help control the rate in order to improve ventricular filling Patient will be admitted to SDU due to his critical status Patient admitted to Dr. Llanes Laboratory Tests Test 06/19/19 15:46 White Blood Count 6.5 K/UL (4.8-10.8) Red Blood Count 3.85 M/UL (4.70-6.10) L Hemoglobin 12.2 G/DL (14.2-18.0) L Hematocrit 35.0 % (42.0-52.0) L Mean Corpuscular Volume 91 FL (80-99) Mean Corpuscular Hemoglobin 31.7 PG (27.0-31.0) H Mean Corpuscular Hemoglobin Concent 34.9 G/DL (32.0-36.0) Red Cell Distribution Width 13.5 % (11.6-14.8) Platelet Count 97 K/UL (150-450) L Mean Platelet Volume 7.0 FL (6.5-10.1) Neutrophils (%) (Auto) 85.2 % (45.0-75.0) H Lymphocytes (%) (Auto) 8.0 % (20.0-45.0) L Monocytes (%) (Auto) 5.3 % (1.0-10.0) Eosinophils (%) (Auto) 0.7 % (0.0-3.0) Basophils (%) (Auto) 0.8 % (0.0-2.0) Prothrombin Time 14.5 SEC (9.30-11.50) H Prothrombin Time INR 1.4 (0.9-1.1) H PTT 25 SEC (23-33) Sodium Level 141 MMOL/L (136-145) Potassium Level 4.4 MMOL/L (3.5-5.1) Chloride Level 107 MMOL/L (98-107) Carbon Dioxide Level 21 MMOL/L (21-32) Anion Gap 13 mmol/L (5-15) Blood Urea Nitrogen 69 mg/dL (7-18) H Creatinine 2.7 MG/DL (0.55-1.30) H Estimate Glomerular Filtration Rate mL/min (>60) Glucose Level 167 MG/DL (74-106) H Calcium Level 9.8 MG/DL (8.5-10.1) Total Bilirubin 0.4 MG/DL (0.2-1.0) Aspartate Amino Transferase (AST) 18 U/L (15-37) Alanine Aminotransferase (ALT) 29 U/L (12-78) Alkaline Phosphatase 67 U/L (46-116) Troponin I 0.499 ng/mL (0.000-0.056) Pro-B-Type Natriuretic Peptide 29928 pg/mL (0-125) H Total Protein 6.4 G/DL (6.4-8.2) Albumin 3.7 G/DL (3.4-5.0) Globulin 2.7 g/dL Albumin/Globulin Ratio 1.4 (1.0-2.7) Lipase 296 U/L (73-393) Thyroid Stimulating Hormone (TSH) 0.220 uiU/mL (0.358-3.740) Free Thyroxine 0.94 NG/DL (0.76-1.46) Free Triiodothyronine 1.8 pg/mL (2.3-4.2) L EKG Diagnostic Results EKG Time: 14:50 EP Interpretation: A. fib with RVR, rate 139, QTc 465, no acute ST elevations, left axis devia Rhythm Strip Diag. Results Rhythm Strip Time: 15:58 EP Interpretation: yes Rate: 131 Rhythm: other - afib Chest X-Ray Diagnostic Results Chest X-Ray Diagnostic Results : Chest X-Ray Ordered: Yes # of Views/Limited/Complete: 1 View Indication: Chest Pain EP Interpretation: Yes Interpretation: other - pulm edema Impression: Other - pulm edema Electronically Signed by: Victorino Verde MD Last Vital Signs Date Time Temp Pulse Resp B/P (MAP) Pulse Ox O2 Delivery O2 Flow Rate FiO2 06/19/19 15:25 97.5 130 16 106/72 (83) 97 Room Air Disposition: ADMITTED INPATIENT Condition: Serious Victorino Verde MD Jun 19, 2019 15:58
[2019-06-19] MEDS ORDERED: fentaNYL 100 mcg/2 mL IV ONE (16:15)
[2019-06-19] MEDS: Metoprolol 5mg/5ml Inj IVP SCH ×3 (16:25→17:03)
[2019-06-19] MEDS ORDERED: Mylanta II UD 30ml ORAL ONE (16:30)
[2019-06-19 16:31] LABS: HEMOGLOBIN 12.2 G/DL (14.2-18.0); MEAN CORPUSCULAR VOLUME 91 FL (80-99); PLATELET COUNT 97 K/UL (150-450); RED BLOOD COUNT 3.85 M/UL (4.70-6.10); RED CELL DISTRIBUTION WIDTH 13.5 % (11.6-14.8); WHITE BLOOD COUNT 6.5 K/UL (4.8-10.8)
[2019-06-19 16:33] LABS: BASOPHILS % (AUTO) 0.8 % (0.0-2.0); EOSINOPHILS % (AUTO) 0.7 % (0.0-3.0); MONOCYTES % (AUTO) 5.3 % (1.0-10.0); NEUTROPHILS % (AUTO) 85.2 % (45.0-75.0)
[2019-06-19 16:34] LABS: INR 1.4 (0.9-1.1)
[2019-06-19 16:44] LABS: ANION GAP 13 mmol/L (5-15); BLOOD UREA NITROGEN 69 mg/dL (7-18); CALCIUM 9.8 MG/DL (8.5-10.1); CARBON DIOXIDE 21 MMOL/L (21-32); CHLORIDE 107 MMOL/L (98-107); CREATININE 2.7 MG/DL (0.55-1.30); POTASSIUM 4.4 MMOL/L (3.5-5.1); SODIUM 141 MMOL/L (136-145)
--- NOTE | 2019-06-19 16:47 | Diagnostic Imaging Report ---
Indication: Chest pain Technique: One view of the chest Comparison: 01/15/2018 Findings: The heart is borderline enlarged. There is bilateral interstitial edema, not evident previously. There is a left chest pacemaker. There is a percutaneous aortic valve prosthesis and evidence of prior CABG again noted Impression: Cardiomegaly with bilateral interstitial edema
[2019-06-19 17:00] LABS: ALANINE AMINOTRANSFERASE 29 U/L (12-78); ALBUMIN 3.7 G/DL (3.4-5.0); ALBUMIN/GLOBULIN RATIO 1.4 (1.0-2.7); ALKALINE PHOSPHATASE 67 U/L (46-116); ASPARTATE AMINO TRANSFERASE 18 U/L (15-37); BILIRUBIN,TOTAL 0.4 MG/DL (0.2-1.0)
[2019-06-19] MEDS ORDERED: Enoxaparin 80mg Inj SUBQ ONE (17:00)
[2019-06-19] MEDS ORDERED: Nitroglycerin 2% oint pkt TOPIC ONE (18:00)
--- NOTE | 2019-06-19 18:22 | NUR ---
ED Nurse Note: patient resting in bed. patient and family aware of peding admission. hr remain tachycardic. ermd and admitting md aware; no new orders at this time.
[2019-06-19] MEDS ORDERED: dilTIAZem HCl 25mg/5ml Inj IV PRN (19:00)
[2019-06-19] MEDS ORDERED: Metoprolol 5mg/5ml Inj IVP PRN (19:00)
[2019-06-19] MEDS ORDERED: Albuterol/Ipratropium 3ml neb HHN PRN (19:00)
[2019-06-19] MEDS ORDERED: Nitroglycerin Subl 0.4mg tab SL PRN (19:00)
[2019-06-19] MEDS ORDERED: Miralax 17gm pkt ORAL PRN (19:00)
[2019-06-19] MEDS ORDERED: Digoxin 0.5mg/2ml Inj IVP SCH (19:00)
[2019-06-19] MEDS ORDERED: Morphine Sulfate 2mg/ml Inj(IV/IM USE ONLY) IVP PRN (19:00)
--- NOTE | 2019-06-19 19:00 | NUR ---
ED Nurse Note: REPORT GIVEN TO HUMA OROZCO. PATIENT TO BE TRANSFERRED TO [facility]. PER ERMD, PT NOT READY FOR TRANSFER TO FLOOR. WILL COMPLETE NEW ORDERS AND CONTINUE TO MONITOR.
[2019-06-19] MEDS ORDERED: dilTIAZem HCl 25mg/5ml Inj IVP ONE (19:45)
--- NOTE | 2019-06-19 20:15 | NUR ---
ED Nurse Note: PT PRESENTS WITH STABLE VITALS (SEE INTERVENTIONS) PER ERMD PT CLEARED AND STABLE FOR TRANSFER TO FLOOR.
--- NOTE | 2019-06-19 20:24 | Cardiology Progress Note ---
Assessment/Plan Assessment/Plan [id number] afib rvr ? duration chf cad lad graft adn om grafe patetenti 2018 rca graft occludede cm ef 35-40% 01/[address] judes device s/p tavr need ep eval heparin erate control darnell need cardioversion serial enxyme an ekg dirutic as bp allow icd interrogfation Objective Last 24 Hour Vital Signs Date Time Temp Pulse Resp B/P (MAP) Pulse Ox O2 Delivery O2 Flow Rate FiO2 06/19/19 19:54 97.5 96 16 119/99 97 Room Air 06/19/19 19:45 132 110/78 06/19/19 19:20 140 06/19/19 18:00 97.5 140 16 99/78 97 Room Air 06/19/19 17:58 109/58 06/19/19 17:03 138 121/68 06/19/19 16:39 130 106/72 06/19/19 16:25 130 106/72 06/19/19 15:30 97.5 130 16 106/72 97 Room Air 06/19/19 15:30 130 16 Room Air 06/19/19 15:25 97.5 130 16 106/72 (83) 97 Room Air Laboratory Tests Test 06/19/19 15:46 White Blood Count 6.5 K/UL (4.8-10.8) Red Blood Count 3.85 M/UL (4.70-6.10) L Hemoglobin 12.2 G/DL (14.2-18.0) L Hematocrit 35.0 % (42.0-52.0) L Mean Corpuscular Volume 91 FL (80-99) Mean Corpuscular Hemoglobin 31.7 PG (27.0-31.0) H Mean Corpuscular Hemoglobin Concent 34.9 G/DL (32.0-36.0) Red Cell Distribution Width 13.5 % (11.6-14.8) Platelet Count 97 K/UL (150-450) L Mean Platelet Volume 7.0 FL (6.5-10.1) Neutrophils (%) (Auto) 85.2 % (45.0-75.0) H Lymphocytes (%) (Auto) 8.0 % (20.0-45.0) L Monocytes (%) (Auto) 5.3 % (1.0-10.0) Eosinophils (%) (Auto) 0.7 % (0.0-3.0) Basophils (%) (Auto) 0.8 % (0.0-2.0) Prothrombin Time 14.5 SEC (9.30-11.50) H Prothromb Time International Ratio 1.4 (0.9-1.1) H Activated Partial Thromboplast Time 25 SEC (23-33) Sodium Level 141 MMOL/L (136-145) Potassium Level 4.4 MMOL/L (3.5-5.1) Chloride Level 107 MMOL/L (98-107) Carbon Dioxide Level 21 MMOL/L (21-32) Anion Gap 13 mmol/L (5-15) Blood Urea Nitrogen 69 mg/dL (7-18) H Creatinine 2.7 MG/DL (0.55-1.30) H Estimat Glomerular Filtration Rate mL/min (>60) Glucose Level 167 MG/DL (74-106) H Calcium Level 9.8 MG/DL (8.5-10.1) Total Bilirubin 0.4 MG/DL (0.2-1.0) Aspartate Amino Transf (AST/SGOT) 18 U/L (15-37) Alanine Aminotransferase (ALT/SGPT) 29 U/L (12-78) Alkaline Phosphatase 67 U/L (46-116) Troponin I 0.499 ng/mL (0.000-0.056) Pro-B-Type Natriuretic Peptide 77671 pg/mL (0-125) H Total Protein 6.4 G/DL (6.4-8.2) Albumin 3.7 G/DL (3.4-5.0) Globulin 2.7 g/dL Albumin/Globulin Ratio 1.4 (1.0-2.7) Lipase 296 U/L (73-393) Thyroid Stimulating Hormone (TSH) 0.220 uiU/mL (0.358-3.740) Free Thyroxine 0.94 NG/DL (0.76-1.46) Free Triiodothyronine 1.8 pg/mL (2.3-4.2) Chandrakant Quesada MD Jun 19, 2019 20:24
--- NOTE | 2019-06-19 20:30 | NUR ---
ED Nurse Note: PER ERMD, PT UPGRADED TO ICU DUE TO CARDIZEM DRIP. NOTED AND CARRIED OUT TRANSFER PROCESS TO ICU. VRE CRE MRSA SWABS COLLECTED; SENT DOWN TO LAB. BELONGINGS LIST COMPLETED WITH PATIENT.
[2019-06-19] MEDS ORDERED: dilTIAZem HCl 25mg/5ml Inj IVP SCH (20:48)
[2019-06-19] MEDS ORDERED: Atorvastatin 80mg tab ORAL SCH (21:00)
--- NOTE | 2019-06-19 21:00 | NUR ---
TRANSFER TO FLOOR: Patient transferred to ICU 246 F as fortunato mccormick MD. Report given to PAM KEENAN. PATIENT TRANSFERED TO FLOOR VIA GURNEY WITH ALL BELONGINGS. ACCOMPANIED BY RN AND LILIANA.
--- NOTE | 2019-06-19 21:00 | NUR ---
NURSE NOTES: Patient arrived to unit on gurney and placed into bed "F". court recording monitor is placed, skin assessed, gown and linens changed. Cardizem drip running via right forearm 18g @ 2.5ml/hr. Patient alert and oriented x4, vital signs stable, does not have pain at the moment. at bedside. Home medications reconciled. Report received from PAM Madsen. Will initiate plan of care.
--- NOTE | 2019-06-19 21:03 | NUR ---
NURSE NOTES: Labs drawn, PTT, CBC, troponin.
[2019-06-19] MEDS ORDERED: Heparin 5000 units/ml inj IV SCH (21:18)
[2019-06-19] MEDS ORDERED: Heparin 25,000u/D5W 500ml 500 ML IV SCH (21:19)
[2019-06-19] MEDS: Carvedilol 25mg Tab ORAL SCH (21:42)
--- NOTE | 2019-06-19 22:00 | NUR ---
NURSE NOTES: Patient is stable. Cardizem drip running now at 5ml/hr per MD orders via right forearm 18g. Heparin started at 18units/kg/hour running via right hand 20g. All needs are met. Bed low, locked and alarm is activated. remains at bedside, will continue to monitor.
[2019-06-19 23:38] LABS: HEMATOCRIT 32.1 % (42.0-52.0); HEMOGLOBIN 11.1 G/DL (14.2-18.0); MEAN CORPUSCULAR VOLUME 92 FL (80-99); PLATELET COUNT 91 K/UL (150-450); RED BLOOD COUNT 3.49 M/UL (4.70-6.10); RED CELL DISTRIBUTION WIDTH 14.4 % (11.6-14.8); WHITE BLOOD COUNT 7.5 K/UL (4.8-10.8)
[2019-06-20] VITALS (33 sets, daily range): BP systolic 97–141; BP diastolic 50–73
--- NOTE | 2019-06-20 | NUR ---
NURSE NOTES: Patient is sleeping comfortably; no signs of pain or distress. Vital signs stable. All needs are met. Cardizem and Heparin drips continues to run. Bed low, locked and alarm is on. remains at bedside.
--- NOTE | 2019-06-20 02:00 | NUR ---
NURSE NOTES: Patient is resting comfortably; cleaned and linens changed. EKG completed, results showing AV-Paced. Cardizem and Heparin continues to run. Vital signs stable. remains at bedside. Bed low, locked and alarm is on.
--- NOTE | 2019-06-20 04:00 | NUR ---
NURSE NOTES: Patient is sleeping, vital signs are stable- no change in condition. Cardizem and Heparin continues to run. Bed low, locked and alarm on. at bedside. All needs are met.
[2019-06-20] MEDS ORDERED: FUROSEMIDE40 MG ORAL (04:27)
[2019-06-20] MEDS ORDERED: FUROSEMIDE40 MG/5 ML ORAL (04:27)
[2019-06-20 04:44] LABS: HEMATOCRIT 32.9 % (42.0-52.0); MEAN CORPUSCULAR VOLUME 94 FL (80-99); PLATELET COUNT 98 K/UL (150-450); RED BLOOD COUNT 3.51 M/UL (4.70-6.10); RED CELL DISTRIBUTION WIDTH 14.6 % (11.6-14.8); WHITE BLOOD COUNT 7.6 K/UL (4.8-10.8)
[2019-06-20 05:10] LABS: INR 1.7 (0.9-1.1)
[2019-06-20 05:26] LABS: CHOLESTEROL 113 MG/DL (< 200); HDL CHOLESTEROL 29 MG/DL (40-60); TRIGLYCERIDES 88 MG/DL (30-150)
--- NOTE | 2019-06-20 05:30 | Consultation ---
DATE OF CONSULTATION: 06/19/2019 CARDIOLOGY CONSULTATION CONSULTING PHYSICIAN: Chandrakant Sanders M.D. REFERRING PHYSICIAN: 1. Aaron Archer M.D. 2. Jorge Llanes M.D. HISTORY OF PRESENT ILLNESS: This is an 88-year-old gentleman with a history of multiple medical problems as delineated below. The patient presented to the hospital because of episode of pain in the chest that started this morning after drinking some cold liquids and this lasted about 24 hours. Eventually, his called the paramedics. The patient was brought to the emergency room. He was noted to be in atrial fibrillation, rapid ventricular response. Multiple doses of beta-blockers administered without help. The patient subsequently had some Cardizem, which seemed to have controlled his heart rate. He really does not have any chest pain at the present time. There is no shortness of breath at the present time. There is no PND, orthopnea, uses three pillows. There is no dizziness or lightheadedness on standing as he does slowly. He absolutely denies any palpitations. PAST MEDICAL HISTORY: Extensive and he has had several hospitalizations previously. He has a history of coronary artery disease, status post coronary bypass grafting. History of BiV ICD [employer] device according to his digital business analyst, Dr. Derrek Palmer and he has had a history of cardiomyopathy with ejection fraction of 35 to 40% based on cardiac catheterization according to his doctor in 01/2019. His last Lexiscan was 06/2018. He had 7% reversible, 12% fixed. He had a cardiac catheterization and his RCA was , vein graft to the RCA was saphenous vein graft to OM and GALICIA to LAD were patent at that time. He had an atherectomy performed of his CT of the lower extremities in 06/2019. 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 MEDICATIONS: At home are listed as losartan 12.5 mg twice daily. He is on Coreg 25 mg twice daily. He is on aspirin 81 mg, ferrous sulfate 325 mg twice daily. He takes Lasix 40 mg once a day. He takes Flomax 0.4 mg daily, allopurinol 100 mg daily, multivitamins, omega-3 fish oil, and Flomax. He takes actually twice daily for as well. Lipitor 80 mg at bedtime. ALLERGIES: He is not allergic to any medications. SOCIAL HISTORY: He does not smoke and socially drinks alcoholic beverages. REVIEW OF SYSTEMS: GASTROINTESTINAL: He has had some diarrhea, but otherwise negative. : He had three to four nocturic episodes. PULMONARY: Denies any coughing or wheezing. CONSTITUTIONAL: Denies any fever, chills, or night sweats. NEUROLOGICAL: Negative. PHYSICAL EXAMINATION: GENERAL: Shows to be an elderly male, in no respiratory distress. Looks quite comfortable. NECK: Supple. No jugular venous distention. LUNGS: Clear to auscultation and percussion. CARDIAC: S1 is normal. S2 is normal. Irregularly irregular. No heaves, thrills, or gallops noted. ABDOMEN: Soft and obese. Positive bowel sounds. EXTREMITIES: There is no clubbing, cyanosis, nor is there any edema. NEUROLOGICAL: He does have some edema peripherally. NEUROLOGICAL: He is awake, alert, and responsive. LABORATORY AND DIAGNOSTIC DATA: White count 6.5, hemoglobin 12.2, and platelet count of 97,000. He has a sodium of 141, potassium 4.4, chloride 107, bicarb 21, BUN of 69, creatinine 2.7, and glucose of 167. First set of cardiac enzymes, troponin is 0.499. ProBNP of 26,185. His TSH is 0.221. His free T3 is low at 1.8 and free T4 is 0.94. His INR 1.5 and a PTT of 25. His chest x-ray shows cardiomegaly, bilateral interstitial edema. His EKG shows left bundle-branch conduction defect with atrial fibrillation, rapid ventricular response with secondary ST segment changes. Unfortunately, it is the only EKG that is available from [facility] from 2017 and appears that his left bundle is not new, this was present on prior occasions with ST-segment elevations being present before to a lesser degree. ASSESSMENT AND PLAN: 1. Atrial fibrillation, rapid ventricular response. The duration really not completely clear. The patient does not have any palpitations. 2. Chest pain. 3. History of coronary disease with occluded graft to RCA with patent graft to OM and GALICIA. 4. Cardiomyopathy, ejection fraction of 35 to 40% in 01/2019. 5. History of BiV ICD implantation with AV pacing previously. 6. Diabetes mellitus. This patient was seen in cardiac consultation. The patient provided intensive care unit level care down in the emergency room. Cardizem drip has been initiated. I have discussed with the patient's digital business analyst Dr. Derrek Palmer, . Information is obtained from him about the patient's history. [facility] data was reviewed. The patient was admitted to either intensive care unit or step-down unit. Intravenous diltiazem may be necessary for control of his heart rate and interrogation will be required of the atrial fibrillation if possible and he will be placed on anticoagulation with heparin for the time being for possibility of a cardioversion if acute in onset of atrial fibrillation. EP consultation will be requested and serial enzymes will be checked. Aspirin will be continued. Cardizem will be continued as well. Echocardiogram will be performed in the morning. The patient will be seen in followup again. Chandrakant Sanders M.D. DR: UBALDO JOB#: [id number] CC:
[2019-06-20 05:33] LABS: PARTIAL THROMBOPLASTIN TIME > 150 SEC (23-33)
--- NOTE | 2019-06-20 05:41 | NUR ---
NURSE NOTES/CRITICAL RESULTS PTT results came back >150. Will turned off Heparin gtt for one hour and restart it at 0635, will be restarting heparin gtt at 14units/kg/hr as per unit protocol. Lab also called regarding critical Troponin results, Troponin is 55.588. I called Dr. Burk and informed him of the critical Troponin results and also about the PTT. Dr. Burk said to continue Heparin gtt as per unit protocol and continue on with the Cardizem gtt. Dr. Burk said he will work on transferring patient out to a higher level of care facility. At this time, patient denies chest pain, SOB, dizziness or any other discomfort. HR is 99 AV PACING, 117/50 RR20, SpO2 of 2L NC. Afebrile at this time.
--- NOTE | 2019-06-20 05:58 | NUR ---
NURSE NOTES: Called and spoke to Stacey at [facility] transfer center . Notified her about patient transfer. Wants Face sheet to be faxed. No beds available at this time unless patient is going straight to filling station laborer. Will notify MD Sanders.
--- NOTE | 2019-06-20 06:00 | NUR ---
NURSE NOTES: Called and updated him in regard of transfer center at [facility]. Dr. Burk said he will get in touch with transfer center.
--- NOTE | 2019-06-20 06:06 | NUR ---
NURSE NOTES: Stacey novoa Face sheet has been faxed and MD Sanders will wait for a bed to be available. patient is asymptomatic
--- NOTE | 2019-06-20 06:10 | NUR ---
NURSE NOTES: Next PTT and Troponin time drawn will be done at 1335.
[2019-06-20] MEDS ORDERED: Heparin 25,000u/D5W 500ml 500 ML IV SCH (07:00)
[2019-06-20 07:25] LABS: ANION GAP 10 mmol/L (5-15); BLOOD UREA NITROGEN 73 mg/dL (7-18); CALCIUM 8.9 MG/DL (8.5-10.1); CARBON DIOXIDE 23 MMOL/L (21-32); CHLORIDE 108 MMOL/L (98-107); CREATININE 2.7 MG/DL (0.55-1.30); POTASSIUM 4.5 MMOL/L (3.5-5.1); SODIUM 141 MMOL/L (136-145)
[2019-06-20 07:29] LABS: ALANINE AMINOTRANSFERASE 38 U/L (12-78); ALBUMIN 3.3 G/DL (3.4-5.0); ALBUMIN/GLOBULIN RATIO 1.2 (1.0-2.7); ALKALINE PHOSPHATASE 60 U/L (46-116); ASPARTATE AMINO TRANSFERASE 124 U/L (15-37); BILIRUBIN,TOTAL 0.4 MG/DL (0.2-1.0)
--- NOTE | 2019-06-20 08:10 | NUR ---
NURSE NOTES: Updated [facility] transfer center on pt by charge nurse. All questions answered.
--- NOTE | 2019-06-20 08:17 | NUR ---
NURSE NOTES: Received the patient from PAM Miranda. Patient is awake, alert and orientedx4, resting in bed comfortably. AV pacing noted on ring attacher. Patient on 2L O2 via NC. Patient denies any SOB or chest pain. Patient kept NPO. Right forearm 18G and right hand 20G intact, running cardizem gtt at 5ml/hr and heparin gtt at 14unit/kg/hr. No active bleeding noted. Bed in lowest position, locked, side rails upx3. pt's at bedside. call light within reach. Bed alarm on. Will continue to monitor. Addendum: 06/20/19 at 0828 by TANMAY SANTILLAN RN Correct time: 0730
--- NOTE | 2019-06-20 08:25 | NUR ---
NURSE NOTES: Called [facility] to arrange transportation, ETA [id number]. JUVENAL Duval, Dr. Sanders, and [facility] made aware.
[2019-06-20] MEDS: Carvedilol 25mg Tab ORAL SCH (08:55)
[2019-06-20] MEDS ORDERED: Digoxin 0.5mg/2ml Inj IVP SCH (09:00)
[2019-06-20] MEDS ORDERED: Allopurinol 100mg Tab ORAL SCH (09:00)
[2019-06-20] MEDS ORDERED: Aspirin EC 81mg tab ORAL SCH (09:00)
[2019-06-20] MEDS ORDERED: Tamsulosin 0.4mg cap ORAL SCH ×2 (09:00)
--- NOTE | 2019-06-20 09:05 | NUR ---
NURSE NOTES: Dr. Archer at bedside to assess the patient. updated on pt's condition, pt to be transferred to [facility] prosthetic lab technician. Okay to give am meds.
--- NOTE | 2019-06-20 09:13 | NUR ---
CASE MANAGEMENT:REVIEW 88 YR OLD FEMALE BIBA FROM HOME CC; CHEST PAIN SI: NSTEMI. CHF EXACERBATION 97.6 130 16 106/72 97% ON RA TROPONIN(+) 0.499 BUN+69 CR+2.7 IS: NTG SPRAY X2 GIVEN TESTING LEAD ASA PO GIVEN TESTING LEAD ASA PO 1L NS BOLUS IV METOPROLOL IV FENTANYL IV ZOFRAN IV PEPCID LOVENOX SQ IV LASIX IV DIGOXIN : TO ICU 06/20/19 TRANSFER TO [facility]
--- NOTE | 2019-06-20 09:31 | NUR ---
DISCHARGE PLAN PATIENT IS TRANSFERRING TO [facility] FOR CARDIAC CATH TRANSPORTATION ARRANGEMENTS MADE BY [employer] SALES MANAGER SHERYL WALKER
--- NOTE | 2019-06-20 09:45 | NUR ---
NURSE NOTES: Called [facility] to follow up, new ETA [phone]. Notified [facility].
--- NOTE | 2019-06-20 10:00 | NUR ---
NURSE NOTES: New transportation arranged by [facility]. [facility] cancelled.
--- NOTE | 2019-06-20 10:03 | Pulmonolgy Critical Care Note ---
Critical Care - Asmt/Plan Problems: (1) NSTEMI (non-ST elevated myocardial infarction) (2) Pulmonary edema (3) HTN (hypertension) (4) Pacemaker (5) BPH (benign prostatic hyperplasia) Respiratory: monitor respiratory rate, adjust FIO2 Cardiac: continue to monitor HR/BP, other - heart rate controlled Renal: F/U I&O, check electrolytes Gastrointestinal: hold feedings Endocrine: monitor blood sugar Hematologic: monitor H/H, transfuse if hgb<8.5 Neurologic: PRN Morphine, keep patient comfortable Prophylaxis: Protonix Disposition: keep in ICU Time Spent (Minutes): 40 Notes Reviewed: cardio Discussed with: nurses, consultants, high risk case manager, family member - d/w at the bed site. Critical Care - Objective Last 24 Hour Vital Signs Date Time Temp Pulse Resp B/P (MAP) Pulse Ox O2 Delivery O2 Flow Rate FiO2 06/20/19 09:30 92 15 138/65 (89) 100 06/20/19 09:00 71 10 138/67 (90) 100 06/20/19 08:30 95 13 135/62 (86) 100 06/20/19 08:00 98.3 68 16 135/61 (85) 100 06/20/19 08:00 82 06/20/19 08:00 Room Air 06/20/19 07:30 97 13 138/66 (90) 98 06/20/19 07:00 62 17 139/62 (87) 100 06/20/19 06:45 71 18 139/68 (91) 100 06/20/19 06:30 100 23 141/73 (95) 100 06/20/19 06:15 110 16 140/67 (91) 99 06/20/19 06:00 77 15 139/62 (87) 99 06/20/19 06:00 77 15 139/62 (87) 99 06/20/19 05:45 77 15 117/50 (72) 98 06/20/19 05:30 84 22 135/65 (88) 97 06/20/19 05:00 74 15 130/69 (89) 97 06/20/19 04:45 69 18 139/60 (86) 98 06/20/19 04:30 66 18 134/58 (83) 99 06/20/19 04:15 69 18 131/61 (84) 97 06/20/19 04:00 Room Air 12/6/19 04:00 98.1 67 17 123/55 (77) 97 06/20/19 03:45 65 17 134/61 (85) 97 06/20/19 03:30 64 18 130/62 (84) 97 06/20/19 03:15 65 21 128/65 (86) 98 06/20/19 03:10 65 06/20/19 03:00 64 19 128/62 (84) 96 06/20/19 02:45 61 20 126/64 (84) 99 06/20/19 02:30 64 17 122/59 (80) 97 06/20/19 02:00 69 18 97/50 (66) 96 06/20/19 01:45 74 21 109/54 (72) 97 06/20/19 01:30 69 21 134/70 (91) 98 06/20/19 01:00 64 16 123/57 (79) 98 06/20/19 00:30 66 16 119/58 (78) 96 06/20/19 00:15 63 18 107/63 (78) 97 06/20/19 00:00 98.1 62 16 123/55 (77) 97 06/20/19 00:00 Room Air 06/19/19 23:30 97 17 109/60 (76) 97 06/19/19 23:26 95 17 129/106 (114) 98 06/19/19 23:18 97 06/19/19 23:15 93 18 117/99 (105) 96 06/19/19 23:00 95 16 110/63 (79) 96 06/19/19 22:45 96 15 108/60 (76) 95 06/19/19 22:30 95 15 120/62 (81) 96 06/19/19 22:28 91 15 120/76 (91) 96 06/19/19 22:15 88 16 118/65 (82) 96 06/19/19 22:12 Room Air 06/19/19 22:00 90 19 127/70 (89) 98 06/19/19 21:45 90 19 96/56 (69) 97 06/19/19 21:43 132 116/67 06/19/19 21:42 132 116/67 06/19/19 21:40 132 116/67 06/19/19 21:30 114 17 104/72 (83) 97 06/19/19 21:16 113 06/19/19 21:15 138 17 116/97 (103) 95 06/19/19 21:11 98.0 125 17 112/70 (84) 95 06/19/19 21:00 97.5 132 14 116/67 99 Room Air 06/19/19 20:54 132 116/67 06/19/19 20:30 97.5 132 14 116/67 99 Room Air 06/19/19 19:54 97.5 96 16 119/99 97 Room Air 06/19/19 19:45 132 110/78 06/19/19 19:20 140 06/19/19 18:00 97.5 140 16 99/78 97 Room Air 06/19/19 17:58 109/58 06/19/19 17:03 138 121/68 06/19/19 16:39 130 106/72 06/19/19 16:25 130 106/72 06/19/19 15:30 97.5 130 16 106/72 97 Room Air 06/19/19 15:30 130 16 Room Air 06/19/19 15:25 97.5 130 16 106/72 (83) 97 Room Air Status: awake Condition: critical, improving HEENT: atraumatic Neck: full ROM Lungs: rales Heart: HR/BP stable Abdomen: soft, non-tender, feeding tube Extremities: no C/C/E, edema Micro: Microbiology Date/Time Source Procedure Growth Status 06/19/19 20:45 Rectum Received Critical Care - Subjective ROS Limited/Unobtainable: Yes ICU Day: 1 Interval Events: 88 year old male with hx of CHF, pacemaker, afib, htn, BPH presented to ER last night with palpitation and dyspnea. He had rapid afib and was in pulmonary edema. He was seen by speeder tender and started on Cardizem drip and Heparin drip. This am his troponin shoot up to 55, he is scheduled to be transferred to for cardiac Cath. I&O: Intake and Output 06/19/19 06/20/19 19:00 07:00 Intake Total 260.634 ml Output Total 800 ml Balance -539.366 ml IV Total 260.634 ml Output Urine Total 800 ml # Voids 2 CXR: pulmonary edema Labs: Laboratory Tests Test 06/19/19 15:46 06/19/19 23:00 06/20/19 04:00 White Blood Count 6.5 K/UL (4.8-10.8) 7.5 K/UL (4.8-10.8) 7.6 K/UL (4.8-10.8) Red Blood Count 3.85 M/UL (4.70-6.10) L 3.49 M/UL (4.70-6.10) L 3.51 M/UL (4.70-6.10) L Hemoglobin 12.2 G/DL (14.2-18.0) L 11.1 G/DL (14.2-18.0) L 11.0 G/DL (14.2-18.0) L Hematocrit 35.0 % (42.0-52.0) L 32.1 % (42.0-52.0) L 32.9 % (42.0-52.0) L Mean Corpuscular Volume 91 FL (80-99) 92 FL (80-99) 94 FL (80-99) Mean Corpuscular Hemoglobin 31.7 PG (27.0-31.0) H 31.7 PG (27.0-31.0) H 31.3 PG (27.0-31.0) H Mean Corpuscular Hemoglobin Concent 34.9 G/DL (32.0-36.0) 34.4 G/DL (32.0-36.0) 33.3 G/DL (32.0-36.0) Red Cell Distribution Width 13.5 % (11.6-14.8) 14.4 % (11.6-14.8) 14.6 % (11.6-14.8) Platelet Count 97 K/UL (150-450) L 91 K/UL (150-450) L 98 K/UL (150-450) L Mean Platelet Volume 7.0 FL (6.5-10.1) 7.5 FL (6.5-10.1) 9.0 FL (6.5-10.1) Neutrophils (%) (Auto) 85.2 % (45.0-75.0) H % (45.0-75.0) % (45.0-75.0) Lymphocytes (%) (Auto) 8.0 % (20.0-45.0) L % (20.0-45.0) % (20.0-45.0) Monocytes (%) (Auto) 5.3 % (1.0-10.0) % (1.0-10.0) % (1.0-10.0) Eosinophils (%) (Auto) 0.7 % (0.0-3.0) % (0.0-3.0) % (0.0-3.0) Basophils (%) (Auto) 0.8 % (0.0-2.0) % (0.0-2.0) % (0.0-2.0) Prothrombin Time 14.5 SEC (9.30-11.50) H 17.5 SEC (9.30-11.50) H Prothromb Time International Ratio 1.4 (0.9-1.1) H 1.7 (0.9-1.1) H Activated Partial Thromboplast Time 25 SEC (23-33) 73 SEC (23-33) H > 150 SEC (23-33) *H Sodium Level 141 MMOL/L (136-145) 141 MMOL/L (136-145) Potassium Level 4.4 MMOL/L (3.5-5.1) 4.5 MMOL/L (3.5-5.1) Chloride Level 107 MMOL/L (98-107) 108 MMOL/L (98-107) H Carbon Dioxide Level 21 MMOL/L (21-32) 23 MMOL/L (21-32) Anion Gap 13 mmol/L (5-15) 10 mmol/L (5-15) Blood Urea Nitrogen 69 mg/dL (7-18) H 73 mg/dL (7-18) H Creatinine 2.7 MG/DL (0.55-1.30) H 2.7 MG/DL (0.55-1.30) H Estimat Glomerular Filtration Rate mL/min (>60) mL/min (>60) Glucose Level 167 MG/DL (74-106) H 124 MG/DL (74-106) H Calcium Level 9.8 MG/DL (8.5-10.1) 8.9 MG/DL (8.5-10.1) Total Bilirubin 0.4 MG/DL (0.2-1.0) 0.4 MG/DL (0.2-1.0) Aspartate Amino Transf (AST/SGOT) 18 U/L (15-37) 124 U/L (15-37) H Alanine Aminotransferase (ALT/SGPT) 29 U/L (12-78) 38 U/L (12-78) Alkaline Phosphatase 67 U/L (46-116) 60 U/L (46-116) Troponin I 0.499 ng/mL (0.000-0.056) 55.588 ng/mL (0.000-0.056) Pro-B-Type Natriuretic Peptide 46163 pg/mL (0-125) H Total Protein 6.4 G/DL (6.4-8.2) 6.1 G/DL (6.4-8.2) L Albumin 3.7 G/DL (3.4-5.0) 3.3 G/DL (3.4-5.0) L Globulin 2.7 g/dL 2.8 g/dL Albumin/Globulin Ratio 1.4 (1.0-2.7) 1.2 (1.0-2.7) Lipase 296 U/L (73-393) Thyroid Stimulating Hormone (TSH) 0.220 uiU/mL (0.358-3.740) 0.161 uiU/mL (0.358-3.740) Free Thyroxine 0.94 NG/DL (0.76-1.46) Free Triiodothyronine 1.8 pg/mL (2.3-4.2) L Differential Total Cells Counted 100 Neutrophils % (Manual) 83 % (45-75) H Pending Lymphocytes % (Manual) 9 % (20-45) L Pending Monocytes % (Manual) 8 % (1-10) Eosinophils % (Manual) 0 % (0-3) Basophils % (Manual) 0 % (0-2) Band Neutrophils 0 % (0-8) Platelet Estimate Decreased L Pending Platelet Morphology Normal Pending C-Reactive Protein, Quantitative < 0.4 mg/dL (0.00-0.90) Triglycerides Level 88 MG/DL (30-150) Cholesterol Level 113 MG/DL (< 200) LDL Cholesterol 65 mg/dL (<100) HDL Cholesterol 29 MG/DL (40-60) L Cholesterol/HDL Ratio 3.9 (3.3-4.4) Aaron Archer MD Jun 20, 2019 10:03
--- NOTE | 2019-06-20 11:00 | NUR ---
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 RN report given to Carroll at [facility].
--- NOTE | 2019-06-20 11:30 | NUR ---
NURSE NOTES: Patient discharged to [facility] clinical laboratory aides teacher, accompanied by pt's . report given to PAM Vega.
--- NOTE | 2019-06-20 13:43 | Cardiology Report ---
APPROVED REPORT EKG Measurement Heart [id number] MO [id number] [id number] AV sequential pacing Abnormal ECG
--- NOTE | 2019-06-20 14:25 | Cardiology Report ---
APPROVED REPORT EXAM: Two-dimensional and M-mode echocardiogram with Doppler and color Doppler. INDICATION Left ventricular function M-Mode DIMENSIONS IVSd1.2 (0.7-1.1cm)Left Atrium (MM)3.8 (1.6-4.0cm) LVDd4.8 (3.5-5.6cm)Aortic Root3.1 (2.0-3.7cm) PWd1.1 (0.7-1.1cm)Aortic Cusp Exc.1.5 (1.5-2.0cm) LVDs4.2 (2.5-4.0cm) PWs1.6 cm Technically difficult study due to poor acoustic windows. Study quality precludes accurate assessment of regional wall motion. Normal left ventricular chamber size. Visualized segments reveal severly hypokinetic with exception of husam-apical and infero-apical segments. Left ventricular ejection fraction estimated to be less than 25 %. Mild left ventricular hypertrophy. No evidence of pericardial effusion. Mild left atrial enlargement. Right cardiac chamber sizes are within normal limits. Focal aortic valve sclerosis with adequate cusp excursion. Thickened mitral valve leaflets with normal excursion. Mild mitral annulus and aortic root calcification. Pulmonic valve not visualized. Normal tricuspid valve structure. IVC dilated at 2.2 cm with physiological collapse. A color flow and spectral Doppler study was performed and revealed: No aortic regurgitation. Peak aortic valve gradient of 19 mmHg and a mean of 70 mmHg. Aortic valve area 1.3 cm2 calculated by continuity equation. Moderate to severe mitral regurgitation. Mitral inflow velocities indicates possible pseudo normalization pattern implying significant left ventricular diastolic dysfunction (Grade II). Mild tricuspid regurgitation. Tricuspid systolic velocities suggests peak right ventricular systolic pressure of 35 mmHg, consistent with mild pulmonary hypertension.
--- NOTE | 2019-06-22 09:43 | Discharge Summary ---
Discharge Summary Discharge Summary _ DATE OF ADMISSION: 06/19/2019 DATE OF DISCHARGE: 06/20/2019 CONSULTANTS: Dr. Chandrakant Archer BRIEF HOSPITAL COURSE: Patient is an 88-year-old male, with history of hypertension, coronary artery bypass graft, [place] biventricular ICD, cardiomyopathy and hyperlipidemia who presented to ED for complaints of chest pain and palpitations that started an hour prior to arrival. There was no aggravating or relieving factors. Severity is moderate. He has constant discomfort in the chest. There was no nausea, no vomiting, no diaphoresis. He felt short of breath and fatigue. Upon evaluation at ED, blood pressure was stable, heart rate was elevated to 150. Patient received aspirin and nitroglycerin paste en route. Blood work showed troponin elevated to 0.499. proBNP was greater than 26,000. There was no leukocytosis. Hemoglobin and hematocrit were stable. He was given Lasix. EKG was in atrial fibrillation with RVR. He was given 5 mg IV metoprolol. Chest x-ray showed pulmonary edema. Patient was given multiple doses of beta-blockers. He was started on Cardizem drip which seemed to have controlled the heart rate. He was admitted to ICU. Cardiac history was obtained from patient's supervisor hydrochloric area Dr. Derrek Palmer. He is he was given anticoagulation with IV heparin. He was continued on aspirin and 80 mg of atorvastatin. Echo showed EF less than 25%. Troponin went up to 55. He was subsequently transferred to [facility] for cardiac catheterization. 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 I have been assigned to complete a discharge summary on this account, I was not involved with the patient's management.--LISBETH Argueta Jacqueline Robles NP Jun 22, 2019 09:42
== END 2019-06-20 11:30 | disposition short-term general hospital (02) | DRG 281 ==
LOC: EDBD 14:54 → EDBEDREQ 16:23 → EDBEDREQSVC 16:23 → EMR 17:28 → 2W 17:41 → EDBEDREQ 17:55 → ICU 21:23
DX: I21.4 Non-ST elevation (NSTEMI) myocardial infarction (principal); N18.4 Chronic kidney disease, stage 4 (severe); J81.1 Chronic pulmonary edema; I42.9 Cardiomyopathy, unspecified; I25.119 Atherosclerotic heart disease of native coronary artery with unspecified angina pectoris; I12.9 Hypertensive chronic kidney disease with stage 1 through stage 4 chronic kidney disease, or unspecified chronic kidney disease; Z95.1 Presence of aortocoronary bypass graft; I73.9 Peripheral vascular disease, unspecified; Z95.810 Presence of automatic (implantable) cardiac defibrillator; E78.5 Hyperlipidemia, unspecified; E11.9 Type 2 diabetes mellitus without complications; Z79.82 Long term (current) use of aspirin; N40.0 Benign prostatic hyperplasia without lower urinary tract symptoms; K21.9 Gastro-esophageal reflux disease without esophagitis; M19.90 Unspecified osteoarthritis, unspecified site; D63.8 Anemia in other chronic diseases classified elsewhere; Z95.4 Presence of other heart-valve replacement
CPT/HCPCS: 36415; 71045; 80053; 80061; 83690; 83880; 84439; 84443; 84481; 84484; 85007; 85025; 85610; 85730; 86140; 87081; 93005; 93306; 96361; 96372; 96374; 96375; 99291; J2405; J7030